=== PATIENT | male | born 1970 | race Caucasian/White ===

== ENCOUNTER 2019-09-10 00:58 | Inpatient (IN) ==
[2019-09-10] MEDS ORDERED: ZOFRAN IV ONE (00:59)
[2019-09-10] MEDS ORDERED: NS 1,000 ML IV ONE ×3 (00:59→02:42)
[2019-09-10] MEDS ORDERED: TORADOL IV ONE (01:09)
--- NOTE | 2019-09-10 01:12 | PROVIDER DOCUMENTATION ---
This chart was entered by Kari Garcia Scribe, acting as scribe for Antoine Carballo MD. HPI-General Adult - General Stated Complaint: SOB Time Seen by Provider: 09/10/19 00:59 Source: patient Allergies/Adverse Reactions: Patient Allergies Allergy/AdvReac Type Severity Reaction Status Date / Time No Known Allergies Allergy Verified 09/10/19 01:08 Home Medications: Home Medication List Medication Instructions Recorded Confirmed Last Taken Type Ergocalciferol (Vitamin D2) 50,000 cap PO DAILY 09/10/19 09/10/19 Unknown History [Vitamin D2] - History of Present Illness -Gen Adult Nature of Presenting Problems: 49yom presents to ED cc SOB, sharp lower right back pain for last 2 days, chest pain, diarrhea and fever. Pt was walking into ED when he almost passed out and network security analyst helped him into wheelchair. Pt denies dysuria. Pt is diaphoretic, low 02, core temp over 101 and hypotensive upon exam. Pt has hx of HTN. Location of Pain/Injury: reports: chest, back Quality of Pain: reports: sharp, tightness Severity: reports: moderate, severe Onset/Duration: reports: 2 days ago Timing: reports: still present, getting worse Context/Activities at Onset: reports: light activity Modifying Factors: improves with: nothing Associated Symptoms: reports: back/neck pain (back), chest pain, diarrhea, shortness of breath Similar Symptoms Previously?: No Recently seen or treated by another doctor?: No Review of Systems - Adult - REVIEW OF SYSTEMS - ADULT Constitutional: reports: see HPI. denies: chills, fever, fatique Eyes: reports: no symptoms reported Ears, Nose, Mouth & Throat: reports: no symptoms reported Cardiovascular: reports: see HPI, chest pain. denies: palpitations Respiratory: reports: see HPI, shortness of breath. denies: cough Gastrointestinal: reports: see HPI, diarrhea Genitourinary: reports: see HPI, flank pain (left). denies: dysuria Musculoskeletal: reports: see HPI, back pain (low back) Integumentary: reports: no symptoms reported Neurological: reports: no symptoms reported Psychiatric: reports: no symptoms reported Endocrine: reports: no symptoms reported Hematologic/Lymphatic: reports: no symptoms reported Allergic/Immunologic: reports: no symptoms reported All Other Systems: Reviewed and Negative Past History - Adult - PAST MEDICAL HISTORY-ADULT Review of Records: reports: Nursing Assessment Review, Medications Reviewed, Social history reviewed & non-contributory. Major Childhood Illnesses: reports: denies history Cardiovascular: reports: denies history Respiratory: reports: denies history Gastrointestinal: reports: denies history Obstetrical/Gynecological: reports: denies history Genitourinary: reports: denies history Musculoskeletal: reports: denies history Neurological: reports: denies history Endocrine/Immune: reports: denies history Other Conditions: reports: denies history - IMMUNIZATION STATUS Childhood Immunizations: See Nurse Assessment Flu Vaccine: See Nurse Assessment - FAMILY HISTORY Family History: reviewed, not pertinent Physical Exam-General - PHYSICAL EXAM-ADULT Initial Vital Signs Reviewed: Yes - CONSTITUTIONAL General Appearance: alert, mild distress. negative: anxious, combative - EYES Eyes: PERRL/EOMI, pink conjunctivae. negative: photophobia - HEAD, EARS, NOSE, MOUTH & THROAT HENMT: normocephalic/atraumatic, moist mucous membranes. negative: angioedema - NECK Neck: normal inspection - RESPIRATORY Respiratory: chest non-tender, lungs clear, normal breath sounds. negative: stridor, wheezing - CARDIOVASCULAR Cardiovascular: normal peripheral pulses, no edema, other (hypotensive). negative: bradycardia, tachycardia - GASTROINTESTINAL (ABDOMEN) Abdominal Exam: normal bowel sounds, non tender, soft. negative: guarding - MUSCULOSKELETAL Back Exam: no vertebral tenderness, CVA tenderness (right), other Extremity: normal inspection. negative: deformity - SKIN Integumentary: diaphoresis. negative: jaundice, rash - PSYCHIATRIC Psych/Mental Status: oriented x 3. negative: anxious, disheveled Progress - PLAN OF CARE/RESULTS Progress/Plan/Lab Results: Orders Category Date Time Status 0.9% Sodium Chloride Inj [Ns] 1,000 ml Med 09/10/19 00:59 Active IV 999 mls/hr Ondansetron [Zofran] Med 09/10/19 00:59 Discontinued 4 mg IV NOW ONE Result Diagrams: 09/10/19 01:14 09/10/19 01:14 - EKG 1 Time of EKG reading by physician:: 00:59 EKG Read and Signed by:: Antoine Carballo EKG Interpretation (*Must complete 3 of following elements*): Abnormal (left anterior fascicular block; possible lateral infarct, age undetermined) Rate: 107 Rhythm: Sinus Tachycardia QRS: LVH [place] Interval: normal - XRAY 1 XRAY Study: Chest XRAY Interpretation: bilateral infiltrates - CT/MRI 1 CT Study: Abdomen, Pelvis CT Results: multifocal pneumonia, no AAA - CONSULTS/PCP/HOSPITALIST Notification #1 *Consult/PCP/Hospitalist*: Dr. Bell, hospitalist at [facility] Time Discussed: 03:25 Reason/Comments: admit to ICU at [facility] Consult Disposition: Admit Departure - Departure Date of Disposition Decision: 09/10/19 Time of Disposition Decision: 03:55 DIAGNOSIS: Septic shock Bilateral pneumonia Qualifiers: Pneumonia type: due to unspecified organism Lung location: unspecified part of lung Qualified Code(s): J18.9 - Pneumonia, unspecified organism Urinary tract infection Qualifiers: Urinary tract infection type: site unspecified Hematuria presence: without hematuria Qualified Code(s): N39.0 - Urinary tract infection, site not specified Disposition: ADMITTED INPATIENT 09 Certified Medical Emergency: Emergent Condition: Critical Additional Instructions: ED Follow Up Instructions: You have been treated by a care provider in the Emergency Department. These instructions are being provided to you so you can have an understanding of how to care for yourself upon discharge. Upon discharge from the Emergency Department, you are responsible for making arrangements for follow-up care by a physician of your choice. Take all prescribed medications as directed. Return to the Emergency Department immediately for any new or worsening symptoms. You may call the Physician Referral phone number at [phone] to obtain a list of Physicians who are taking new patients. Referrals and Follow-Ups: None,PCP [NON-STAFF PROVIDER] - - Critical Care Note This patient required my direct & personal management of CC.: Yes Attestation - Physician/ ADAM Attestation Patient care was provided by Advanced Practice Provider:: No The physician spent face to face time with patient:: Yes Advanced Practice Provider documentation review:: Supervising physician onsite and consulted in the evaluation and care of this patient. The physician did have a face to face encounter with the patient. This chart was documented by the indicated scribe, (Kari Garcia Scribe) and accurately reflects the services I performed and decisions made by me, Antoine Carballo MD, as attested by the provider's signature.
--- NOTE | 2019-09-10 01:21 | EKG Report ---
Test Performed on : 09/10/2019 00:59:12 AM Test Reason : sob Blood Pressure : / mmHG Vent. Rate : 107 BPM Atrial Rate : 107 BPM P-R Int : 132 ms QRS Dur : 098 ms QT Int : 356 ms P-R-T Axes : 050 -50 038 degrees QTc Int : 475 ms Sinus tachycardia. Left anterior fascicular block Moderate voltage criteria for LVH, may be normal variant Possible Lateral infarct , age undetermined Abnormal ECG No previous ECGs available Unconfirmed Result
[2019-09-10] MEDS ORDERED: ZOSYN 3.375 GM in NS 50 ML IV ONE (01:33)
[2019-09-10] MEDS ORDERED: TYLENOL PR ONE (01:33)
[2019-09-10 01:40] LABS: BASO# 0.01 X1000 (0.0-0.2); BASO% 0.1 % (0.0-0.8); EOS# 0.05 X1000 (0.0-0.7); EOS% 0.3 % (0.0-10.0); HEMATOCRIT 48.6 % (42.0-52.0); IMM GRAN# 0.04 X1000 (0.0-0.04); IMM GRAN% 0.2 % (0.0-0.5); LYMPH% 2.8 % (20.5-51.1); MCH 29.1 PG (27-31); MCHC 32.9 g/dL (33-37); MCV 88.5 FL (81-99); MONO# 0.82 X1000 (0.11-0.59); MONO% 4.5 % (1.7-9.3); NEUT# 16.76 X1000 (1.4-6.5); NEUT% 92.1 % (42.2-75.2); PLT 218 X1000 (130-400); RBC 5.49 XMIL (4.7-6.1); RDW 15.3 % (11.5-14.5); WBC 18.18 X1000 (4.8-10.8)
[2019-09-10 01:42] LABS: AGAP 9; ALBUMIN 3.5 g/dL (3.5-5.0); ALKALINE PHOSPHATASE 78 U/L (32-122); BUN 9 mg/dL (8-22); CALCIUM 8.7 mg/dL (8.8-10.2); CHLORIDE 103 mmol/L (98-107); COSMO 271; CREATININE 0.7 mg/dL (0.7-1.2); ESTIMATED GFR > 60; GLUCOSE 105 mg/dL (70-104); GOT 11 U/L (10-34); GPT 8 U/L (10-44); POTASSIUM 3.8 mmol/L (3.5-5.1); SODIUM 136 mmol/L (136-145); TCO2 25 mmol/L (25-35); TOTAL PROTEIN 6.1 g/dL (6.3-8.3)
[2019-09-10] MEDS ORDERED: VANCOMYCIN 1 GM/NS 1 GM/250 ML IVPB IV ONE ×2 (01:43→05:00)
[2019-09-10] MEDS ORDERED: NORCO-5 PO ONE (01:50)
[2019-09-10 01:59] LABS: URINE SOURCE CATH
[2019-09-10 02:00] LABS: OCCULT BLOOD 1 POSITIVE (NEGATIVE)
[2019-09-10 02:02] LABS: BILIRUBIN URINE SMALL (NEGATIVE); BLOOD URINE NEGATIVE (NEGATIVE); COLOR YELLOW; GLUCOSE URINE 70 mg/dL (NEGATIVE); KETONE URINE TRACE mg/dL (NEGATIVE); LEUKOCYTES URINE NEGATIVE (NEGATIVE); NITRITE URINE NEGATIVE (NEGATIVE); PROTEIN URINE 200 mg/dL (NEGATIVE); SP GRAVITY URINE 1.029; TURBIDITY URINE HAZY (CLEAR); UROBILINOGEN URINE 3 mg/dL (NORMAL)
[2019-09-10 02:02] LABS: INR 1.11; PROTIME 14.9 Seconds (11.0-16.0)
[2019-09-10 02:30] LABS: URINE RBC <10 /HPF (<10); URINE WBC 20-40 /HPF (<10)
[2019-09-10 02:31] LABS: UR EPITHELIAL CELLS <10 /HPF (<10); URINE BACTERIA 3+ /HPF; URINE CASTS NONE SEEN; URINE CRYSTALS NONE SEEN; URINE SMALL ROUND CELLS NONE SEEN; URINE YEAST NONE SEEN
[2019-09-10] MEDS ORDERED: NORCO-5 ONE (02:41)
[2019-09-10] MEDS ORDERED: NS 500 ML IV ONE (02:42)
[2019-09-10] MEDS ORDERED: ZOSYN 3.375 GM in NS 50 ML IV SCH (04:00)
[2019-09-10] MEDS ORDERED: VANCOMYCIN IV PER PHARMACY MISC SCH (04:00)
[2019-09-10] MEDS: DOPAMINE 800 MG/D5W 800 MG/500 ML IV.SOLN IV SCH ×3 (05:21→06:56)
[2019-09-10] MEDS ORDERED: MORPHINE IV ONE ×2 (05:25→08:27)
[2019-09-10] MEDS ORDERED: DILAUDID IV ONE (05:38)
[2019-09-10] MEDS ORDERED: MOTRIN LIQUID PO ONE (06:04)
[2019-09-10 06:17] LABS: BE -3.8 mmoll (-3.0-3.0); BLOOD TYPE ARTERIAL; HCO3-(ACT) 21.8 mmoll (20.0-26.0); METHB 1.2 % (0.0-1.5); O2(CT) 18.6 mL/dL (15.0-23.0); O2HB 91.4 % (95.0-99.0); PCO2(98.6) 39 mmHg (35-45); PO2(98.6) 69 mmHg (60-100); SAMPLE BLOOD; SAO2 94.8 % (95.0-100.0); THB 14.5 g/dL (11.5-17.4); pH(98.6) 7.35 (7.35-7.45)
[2019-09-10 06:18] LABS: ALLEN TEST NO; MODALITY NRB
[2019-09-10] MEDS ORDERED: CARDIZEM IV ONE ×3 (06:25→07:38)
--- NOTE | 2019-09-10 07:05 | EKG Report ---
Test Performed on : 09/10/2019 06:19:41 AM Test Reason : tachycardia Blood Pressure : / mmHG Vent. Rate : 176 BPM Atrial Rate : 170 BPM P-R Int : 000 ms QRS Dur : 102 ms QT Int : 288 ms P-R-T Axes : 000 -42 068 degrees QTc Int : 492 ms Atrial fibrillation. with rapid ventricular response. Left axis deviation Inferior infarct , age undetermined Anterolateral infarct (cited on or before 10-SEP-2019) Abnormal ECG When compared with ECG of 10-SEP-2019 00:59, (Unconfirmed) Atrial fibrillation. has replaced Sinus rhythm. Vent. rate has increased BY 69 BPM Left anterior fascicular block is no longer present Nonspecific T wave abnormality now evident in Lateral leads Unconfirmed Result
[2019-09-10] MEDS: LEVOPHED 8 MG in D5 1/2 NS 250 ML IV SCH ×5 (07:38→08:13)
[2019-09-10] MEDS ORDERED: LEVOPHED 8 MG in D5 1/2 NS 250 ML IV SCH (07:45)
[2019-09-10] MEDS ORDERED: LOPRESSOR IV ONE (07:48)
[2019-09-10] MEDS ORDERED: SOLU-CORTEF IV ONE (07:48)
[2019-09-10] MEDS ORDERED: EPINEPHRINE ONE (08:19)
[2019-09-10] MEDS ORDERED: EPINEPHRINE SYRINGE IV ONE (08:21)
[2019-09-10] MEDS ORDERED: MORPHINE ONE (08:26)
--- NOTE | 2019-09-10 08:42 | Diag Imaging Result Doc PS360 ---
EXAM: CHEST-PORTABLE - 09/10/2019 HISTORY: chest pain TECHNIQUE: Portable chest COMPARISON: 09/15/2018 FINDINGS: Heart size is normal. Inspiration is somewhat shallow. There is ill-defined infiltrate or atelectasis at the left base. There is mild linear atelectasis at the right base. There is no pleural effusion or pneumothorax identified. IMPRESSION: Somewhat shallow inspiration. Ill-defined infiltrate or atelectasis at left base. Electronically signed by Stevenson Earl 09/10/2019 8:40 AM
[2019-09-10] MEDS ORDERED: NS ONE (09:08)
[2019-09-10] MEDS ORDERED: EPINEPHRINE SYRINGE ONE (09:08)
--- NOTE | 2019-09-10 09:25 | Diag Imaging Result Doc PS360 ---
EXAM: CT RENAL STONE SEARCH - 09/10/2019 HISTORY: flank pain TECHNIQUE: CT renal stone search without contrast COMPARISON: None. FINDINGS: There are patchy infiltrates at the bilateral lung bases, as well as some dependent atelectasis. There is an apparent small hiatal hernia. There are postsurgical changes of gastric bypass. There is no hydronephrosis or perinephric edema identified. There is no renal stone identified. There is a Perez catheter in the urinary bladder. There is no evidence of bowel obstruction. The appendix is questionably visualized and shows no obvious inflammation. There is no free air. There are no calcified gallstones or pericholecystic inflammation identified. There are bilateral L4 pars interarticularis defects and lumbar spine degenerative changes noted. IMPRESSION: No evidence of renal stone or hydronephrosis. Patchy infiltrates at bilateral lung bases which are suspicious for pneumonia. Bilateral L4 pars interarticularis defects and lumbar spine degenerative changes noted. The on-call radiologist provided preliminary results at 2:53 AM on 09/10/2019. This exam was performed using automated exposure control, adjustment of mA or kV according to patient size, and/or use of iterative reconstruction technique. Electronically signed by Stevenson Earl 09/10/2019 9:22 AM
[2019-09-10] MEDS ORDERED: ZOFRAN IV PRN (09:32)
--- NOTE | 2019-09-10 09:58 | EKG Report ---
Test Performed on : 09/10/2019 08:25:15 AM Test Reason : pain Blood Pressure : / mmHG Vent. Rate : 099 BPM Atrial Rate : 094 BPM P-R Int : 000 ms QRS Dur : 102 ms QT Int : 374 ms P-R-T Axes : 000 -24 -04 degrees QTc Int : 479 ms Atrial fibrillation. Cannot rule out Anterior infarct (cited on or before 10-SEP-2019) Abnormal ECG When compared with ECG of 10-SEP-2019 06:19, (Unconfirmed) Vent. rate has decreased BY 77 BPM Questionable change in initial forces of Lateral leads ST elevation has replaced ST depression in Lateral leads Inverted T waves have replaced nonspecific T wave abnormality in Inferior leads Nonspecific T wave abnormality no longer evident in Lateral leads Confirmed by Joe BRAGG, P.J.M ([id number]) on 09/11/2019 1:11:05 PM
[2019-09-10] MEDS: MAXIPIME 2 GM in NS 100 ML IV SCH ×2 (10:17→20:39)
[2019-09-10] MEDS: NS 1,000 ML IV SCH ×2 (10:17→20:38)
[2019-09-10] MEDS: NEO-SYNEPHRINE 50 MG in NS 250 ML IV SCH ×3 (10:27→19:52)
[2019-09-10] MEDS: CARDIZEM 100 MG/NS 100 MG/100 ML IVPB IV SCH ×2 (10:28→17:34)
[2019-09-10 11:06] LABS: HEMOGLOBIN A1C 5.8 % (4.8-6.0)
[2019-09-10] MEDS: LOVENOX SUBQ SCH (11:17)
[2019-09-10] MEDS: XOPENEX NEB INH SCH ×4 (11:39→23:34)
[2019-09-10] MEDS: TYLENOL PO PRN (14:06)
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
[2019-09-10] MEDS: NORCO-5 PO PRN ×2 (15:23→20:40)
--- NOTE | 2019-09-10 17:10 | ECHO REPORT ---
ORDER DATE: 09/10/2019 INTERPRETING PHYSICIAN: Dr. Bal Weems. REQUESTING PHYSICIAN: Lina Head MD. CLINICAL INDICATIONS: A 49-year-old male with atrial fibrillation, paroxysmal; pneumonia; question of CHF. M-MODE MEASUREMENTS: Left ventricle end diastole: 4.8 cm. Left ventricle end systole: 3.6 cm. Posterior wall: 1.1 cm. Interventricular septum: 1.2 cm. Left atrium: 3.8 cm. Aortic root: 3.1 cm. SUMMARY OF 2-DIMENSIONAL IMAGIN. The left ventricular chamber is not dilated. Left ventricular function is moderately impaired. Appears to be in the range of 40-45%. The patient is in atrial fibrillation with rapid response, making the study very difficult to interpret. 2. The left atrium appears to be mildly enlarged. 3. The right atrium and right ventricle also appear to be mild to moderately enlarged. 4. Mitral valve shows mild degree of regurgitation. 5. Pulse wave Doppler of mitral inflow shows a single filling wave. The patient is in atrial fibrillation. 6. The tricuspid valve shows mild to moderate degree of regurgitation. 7. Pulmonary pressure is estimated at 39 mmHg. 8. The aortic valve has 3 cusps; they open normally. Color flow mapping unremarkable. 9. The pulmonic valve appears to be grossly within normal range. 10.There is no pericardial effusion, mass or thrombus. Clinical correlation is recommended. cc: MD Lina Hinson MD
[2019-09-10] MEDS ORDERED: SODIUM CHLORIDE 0.9% INJ SCH (19:00)
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
[2019-09-10] MEDS: MUCOMYST 20% INH SCH (19:38)
[2019-09-10] MEDS ORDERED: VANCOMYCIN 2,000 MG in NS 500 ML IV SCH (21:00)
[2019-09-11] MEDS: NEO-SYNEPHRINE 50 MG in NS 250 ML IV SCH ×5 (01:47→22:31)
[2019-09-11] MEDS: XOPENEX NEB INH SCH ×5 (03:19→19:53)
[2019-09-11] MEDS: CARDIZEM 100 MG/NS 100 MG/100 ML IVPB IV SCH ×2 (03:34→16:41)
[2019-09-11 05:12] LABS: ALLEN TEST YES; BE -8.7 mmoll (-3.0-3.0); BLOOD TYPE ARTERIAL; HCO3-(ACT) 18.1 mmoll (20.0-26.0); METHB 1.1 % (0.0-1.5); O2(CT) 19.8 mL/dL (15.0-23.0); O2HB 95.6 % (95.0-99.0); PCO2(98.6) 30 mmHg (35-45); PO2(98.6) 89 mmHg (60-100); SAMPLE BLOOD; THB 14.7 g/dL (11.5-17.4); pH(98.6) 7.33 (7.35-7.45)
[2019-09-11 05:13] LABS: MODALITY HIGH FLOW NASAL CAN
--- NOTE | 2019-09-11 06:00 | Diag Imaging Result Doc PS360 ---
EXAM: CHEST-PORTABLE HISTORY: pneumonia TECHNIQUE: Single view COMPARISON: 09/10/2019 FINDINGS: Poor inspiratory effort. Development of right basilar infiltrates with atelectasis and small effusion. Left basilar infiltrates are more pronounced. Heart is borderline mildly prominent. There is central vascular distention. IMPRESSION: Interval worsening Electronically signed by Weston Fabian 09/11/2019 5:58 AM
[2019-09-11] MEDS: PROTONIX IV SCH (06:31)
[2019-09-11] MEDS: NS 1,000 ML IV SCH (06:31)
[2019-09-11 06:43] LABS: BASO# 0.04 X1000 (0.0-0.2); BASO% 0.1 % (0.0-0.8); EOS# 0.37 X1000 (0.0-0.7); HEMATOCRIT 42.2 % (42.0-52.0); HEMOGLOBIN 13.8 g/dL (14.0-18.0); IMM GRAN# 0.28 X1000 (0.0-0.04); IMM GRAN% 0.8 % (0.0-0.5); LYMPH# 0.39 X1000 (1.2-3.4); LYMPH% 1.1 % (20.5-51.1); MCH 29.4 PG (27-31); MCHC 32.7 g/dL (33-37); MONO# 0.86 X1000 (0.11-0.59); MONO% 2.4 % (1.7-9.3); MPV 10.9 FL (7.4-10.4); NEUT# 33.45 X1000 (1.4-6.5); NEUT% 94.6 % (42.2-75.2); PLT 227 X1000 (130-400); RBC 4.69 XMIL (4.7-6.1); RDW 15.8 % (11.5-14.5); WBC 35.39 X1000 (4.8-10.8)
[2019-09-11 06:56] LABS: CALCIUM 7.7 mg/dL (8.8-10.2); CREATININE 2.9 mg/dL (0.7-1.2); POTASSIUM 3.8 mmol/L (3.5-5.1)
[2019-09-11 07:15] LABS: BANDS 2 % (0-1); EOS 12 % (1-10); SEGS 86 % (42-75)
[2019-09-11] MEDS: ZYVOX 600 MG/D5W 600 MG/300 ML IVPB IV SCH ×2 (07:29→20:27)
[2019-09-11] MEDS: NORCO-5 PO PRN ×2 (07:41→12:48)
[2019-09-11] MEDS: MUCOMYST 20% INH SCH ×2 (08:08→19:53)
[2019-09-11] MEDS: DILAUDID IV PRN ×3 (09:09→16:40)
[2019-09-11] MEDS: MAXIPIME 2 GM in NS 100 ML IV SCH (09:10)
[2019-09-11] MEDS: LOVENOX SUBQ SCH (09:25)
[2019-09-11 10:40] LABS: URINE SOURCE CLEAN CATCH
[2019-09-11 10:47] LABS: BILIRUBIN URINE NEGATIVE (NEGATIVE); BLOOD URINE SMALL (NEGATIVE); COLOR YELLOW; GLUCOSE URINE NEGATIVE (NEGATIVE); KETONE URINE NEGATIVE (NEGATIVE); LEUKOCYTES URINE SMALL (NEGATIVE); NITRITE URINE NEGATIVE (NEGATIVE); PROTEIN URINE 100 mg/dL (NEGATIVE); SP GRAVITY URINE 1.021; TURBIDITY URINE HAZY (CLEAR); UROBILINOGEN URINE NORMAL (NORMAL)
[2019-09-11 10:51] LABS: UR EPITHELIAL CELLS <10 /HPF (<10); URINE BACTERIA NEGATIVE /HPF; URINE RBC <10 /HPF (<10)
[2019-09-11 10:58] LABS: URINE CASTS NONE SEEN; URINE CRYSTALS NONE SEEN; URINE SMALL ROUND CELLS NONE SEEN; URINE YEAST PRESENT
[2019-09-11 11:02] LABS: UR CREAT RANDOM 125.2 mg/dL (14-26)
--- NOTE | 2019-09-11 11:16 | CARDIOLOGY PROGRESS NOTE ---
DATE: 09/11/2019 CHIEF COMPLAINT: Shortness of breath, pleuritic pain. SUBJECTIVE: Mr. Chester is still very uncomfortable. They had to give him Dilaudid for pleuritic pain. His chest x-ray today shows interval worsening. He is awake. He is still quite dyspneic on high flow oxygen. OBJECTIVE: Temperature 98.3, pulse 101, blood pressure 107/75, respirations 24. Awake, alert, with labored breathing. HEENT unremarkable. Chest: Bilateral breath sounds are diminished with some rales, especially in the right lung. Heart sounds are irregularly irregular at this time. No gallop or murmur. Abdomen is nontender. Extremities showed no obvious edema. Neurologic: Follows commands. Moves all 4 extremities. DIAGNOSTIC DATA: Blood work shows white cell count 35,390, hemoglobin 13.8. His ProBNP is 6457. His blood gases this morning on 70% FiO2 show pO2 is 89, pH is 7.33. His BUN is 44, creatinine 2.9. His C-reactive protein was very high at 336.14 mg per mL. His echocardiogram from yesterday showed ejection fraction of 40% to 45% with atrial fibrillation. IMPRESSION: 1. The patient developed paroxysmal atrial fibrillation in the midst of severe bilateral pneumonia with respiratory failure, hypoxemic. 2. Acute renal dysfunction secondary to sepsis and dehydration. 3. History of gastric bypass. Diagnosis of morbid obesity in the past. 4. Chronic anemia in the past. 5. History of hypertension. RECOMMENDATIONS: At this time, we will continue with supportive measures, IV Cardizem, IV Pravin- Synephrine. He needs to be watched closely because he may evolve into ARDS. We will follow. cc: Bal Weems MD
--- NOTE | 2019-09-11 13:53 | Diag Imaging Result Doc PS360 ---
EXAM: LUNG SCAN / VQ HISTORY: p.e. TECHNIQUE: Nuclear medicine ventilation/perfusion lung scan COMPARISON: Recent chest x-ray FINDINGS: Not all images obtained due to the patient's inability to complete the exam. 40.2 mCi DTPA used for the anterior and posterior ventilation images. 5.6 mCi MAA given intravenously for the anterior and posterior perfusion images. No wedge shaped perfusion defects. No mismatches. IMPRESSION: No pulmonary emboli identified Electronically signed by Weston Fabian 09/11/2019 1:50 PM
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
[2019-09-11 15:41] LABS: ALB/GLOB RATIO 0.8; ALBUMIN 2.6 g/dL (3.5-5.0); CALCIUM 8.2 mg/dL (8.8-10.2); CREATININE 2.4 mg/dL (0.7-1.2); POTASSIUM 3.7 mmol/L (3.5-5.1); TOTAL BILIRUBIN 1.36 mg/dL (0.20-1.00); TOTAL PROTEIN 5.9 g/dL (6.3-8.3)
--- NOTE | 2019-09-11 15:43 | PROGRESS NOTE ---
DATE: 09/11/2019 SUBJECTIVE: The patient states that he has been having a lot of right flank pain as well as pleuritic chest pain. He states that he does not have an appetite. He remains on Cardizem and Pravin-Synephrine drips. He is also on high flow oxygen. OBJECTIVE: Vital Signs: T-max 98.7 degrees, blood pressure 115/79, heart rate 92, respirations 17, O2 saturation 91% on high-flow oxygen. Intake 2.4 L, output 720. General: This is a middle- aged male lying in bed in no acute distress. Heart: S1, S2 normal. Tachycardic. Lungs: Rhonchi in both lung andrew. No crackles. Abdomen: Positive bowel sounds. Soft, nontender, nondistended. Extremities: 1+ edema in the lower extremities. Neurologic: The patient is alert and oriented x4. LABS: White blood cell count 35, hemoglobin 13, hematocrit 42, platelets 227,000. Sodium 138, potassium 3.8, chloride 101, CO2 15, BUN 44, creatinine 2.9, glucose 92, calcium 7.7. ProBNP 6457, cortisol 40. ABG: PH is 7.33, pCO2 30, PO2 89, bicarb 18. ASSESSMENT AND PLAN: 1. Acute hypoxemic respiratory failure. Likely secondary to severe bilateral lobe pneumonia. Continue to treat the underlying infection. 2. Septic shock. The patient remains on Pravin-Synephrine. So far the blood cultures are negative as well as the sputum culture. We will continue with broad-spectrum antibiotics. 3. Severe bilateral lobe pneumonia. Continue with broad-spectrum antibiotics, bronchodilator therapy, and high-flow oxygen. Pulmonary and ID have been consulted. 4. Acute kidney injury. The patient's FENA is less than 1 however, he has peripheral edema that has developed. The patient's urine output remains adequate. This is likely a combination of septic shock and hypotension leading to ATN. Nephrology has been consulted for further recommendations. 5. Metabolic acidosis. Monitor. 6. Leukocytosis. Worse. Continue with broad-spectrum antibiotics. 7. Atrial fibrillation. The patient remains on a Cardizem drip. Further management as per Cardiology. 8. Gastrointestinal prophylaxis. Continue on IV Protonix. 9. Deep vein thrombosis prophylaxis. Continue on heparin. cc: Lina Head MD [facility]
[2019-09-12] MEDS: XOPENEX NEB INH SCH ×7 (00:05→23:30)
[2019-09-12 05:05] LABS: ALLEN TEST YES; BE -5.4 mmoll (-3.0-3.0); BLOOD TYPE ARTERIAL; HCO3-(ACT) 20.7 mmoll (20.0-26.0); METHB 1.3 % (0.0-1.5); O2HB 95.7 % (95.0-99.0); PCO2(98.6) 34 mmHg (35-45); PO2(98.6) 91 mmHg (60-100); SAMPLE BLOOD; SAO2 98.2 % (95.0-100.0); THB 14.8 g/dL (11.5-17.4); pH(98.6) 7.36 (7.35-7.45)
[2019-09-12 05:06] LABS: MODALITY HIGH FLOW NASAL CAN
[2019-09-12] MEDS: NEO-SYNEPHRINE 50 MG in NS 250 ML IV SCH (05:06)
[2019-09-12] MEDS: DILAUDID IV PRN ×2 (05:25→17:12)
[2019-09-12] MEDS: PROTONIX IV SCH (06:19)
[2019-09-12 06:29] LABS: BASO# 0.03 X1000 (0.0-0.2); BASO% 0.1 % (0.0-0.8); EOS# 0.47 X1000 (0.0-0.7); EOS% 1.9 % (0.0-10.0); HEMATOCRIT 42.1 % (42.0-52.0); HEMOGLOBIN 14.1 g/dL (14.0-18.0); IMM GRAN# 0.21 X1000 (0.0-0.04); IMM GRAN% 0.8 % (0.0-0.5); LYMPH# 0.55 X1000 (1.2-3.4); LYMPH% 2.2 % (20.5-51.1); MCH 29.3 PG (27-31); MCHC 33.5 g/dL (33-37); MCV 87.5 FL (81-99); MONO# 0.82 X1000 (0.11-0.59); MONO% 3.3 % (1.7-9.3); MPV 11.4 FL (7.4-10.4); NEUT# 23.01 X1000 (1.4-6.5); NEUT% 91.7 % (42.2-75.2); PLT 194 X1000 (130-400); RBC 4.81 XMIL (4.7-6.1); RDW 15.9 % (11.5-14.5); WBC 25.09 X1000 (4.8-10.8)
[2019-09-12 06:58] LABS: CALCIUM 8.5 mg/dL (8.8-10.2); CREATININE 1.7 mg/dL (0.7-1.2); POTASSIUM 3.6 mmol/L (3.5-5.1)
--- NOTE | 2019-09-12 07:34 | CONSULTATION ---
DATE OF CONSULTATION: 09/11/2019 CHIEF COMPLAINT: Cough and shortness of breath. HISTORY OF PRESENT ILLNESS: This is a 49-year-old male with the complaint of cough, fever, chills, and with shortness of breath for a couple of days. Denies chest pain. Recent chest x-ray reveals left basilar infiltrates with central venous distention. PAST MEDICAL HISTORY: 1. Hypertension. 2. Iron deficiency anemia. PAST SURGICAL HISTORY: Left knee and right clavicle repair, gastric bypass. FAMILY HISTORY: Father with diabetes and hypertension. ALLERGIES: No known drug allergies. SOCIAL HISTORY: He is single and lives alone. Denies tobacco, alcohol or illicit drug use. REVIEW OF SYSTEMS: A 10-point review of systems was obtained, and the pertinent is listed in the HPI, otherwise noncontributory. DIAGNOSTIC DATA: White blood cells 18, hemoglobin 16, hematocrit 48, platelets 218,000. INR is 1.1. ABGs shows pH 7.35, pCO2 of 39, pO2 of 69, bicarbonate 21. Sodium is 136, potassium 3.8, chloride 103, CO2 is 25, BUN is 9, creatinine 0.7, glucose 105. Hemoglobin A1c is 5.8. AST is 11, ALT is 8. Troponin 0.01. Albumin 3.5. TSH is 0.86. UA with bacteria 3+. Diagnostic data listed pertinent in HPI. PHYSICAL EXAMINATION: Vital signs: Blood pressure is 104/61, temperature 98.6, heart rate 91, respirations 22, O2 saturation 91% on nonrebreather mask. General: This is a 49-year-old male, ill appearing, obese male, lying in bed in no acute distress at the present time. HEENT: Head is atraumatic and normocephalic. PERRLA noted. Extraocular movements were intact. Moist oral mucosa. Trachea midline. Neck is supple. Heart: S1 and S2 appreciated. Irregularly irregular rhythm. Lungs with coarse breath sounds and rhonchi bilaterally. Abdomen: Positive bowel sounds in all 4 quadrants. Soft, nontender and nondistended. Extremities: Trace edema. No clubbing or cyanosis. Peripheral pulses palpable. Neurologic: Alert and oriented x3. ASSESSMENT AND PLAN: 1. Bilateral pneumonia. Continue antibiotics, bronchodilators and supplemental O2. 2. Hypoxemic respiratory failure. Continue supplemental O2. We will follow with ABGs. 3. Paroxysmal atrial fibrillation. He is on Cardizem drip. Echocardiogram obtained. 4. Continue GI prophylaxis with IV Protonix. 5. Continue DVT prophylaxis with Lovenox subcutaneously. Thank you for the courtesy of this consult. Dictated by ARINA Moralez for Mariam Sherman MD cc: ARINA Moralez MD
--- NOTE | 2019-09-12 07:35 | EKG Report ---
Test Performed on : 09/10/2019 09:57:14 AM Test Reason : afib with rvr Blood Pressure : / mmHG Vent. Rate : 123 BPM Atrial Rate : 131 BPM P-R Int : 000 ms QRS Dur : 102 ms QT Int : 350 ms P-R-T Axes : 000 -30 -08 degrees QTc Int : 501 ms Atrial fibrillation. with rapid ventricular response. Left axis deviation ST elevation, consider lateral injury or acute infarct ACUTE SD / STEMI Abnormal ECG When compared with ECG of 10-SEP-2019 08:25, (Unconfirmed) No significant change was found Confirmed by Renata BRAGG, Stephon ([id number]) on 09/13/2019 8:49:33 AM
--- NOTE | 2019-09-12 07:48 | Diag Imaging Result Doc PS360 ---
EXAM: CHEST-PORTABLE INDICATION: dyspnea TECHNIQUE: One view COMPARISON: 09/11/2019 FINDINGS: Lung volumes remain low. Infiltrates at the lower lung zones bilaterally are approximately stable. There is a stable right pleural effusion. No new consolidation is identified. Cardiac silhouette is stable. IMPRESSION: Stable chest. Electronically signed by Tamir Harrison 09/12/2019 7:45 AM
[2019-09-12] MEDS: MUCOMYST 20% INH SCH ×2 (08:12→19:45)
[2019-09-12] MEDS: ZYVOX 600 MG/D5W 600 MG/300 ML IVPB IV SCH ×2 (08:33→20:29)
[2019-09-12] MEDS: MIRALAX PO SCH ×2 (08:33→20:29)
[2019-09-12] MEDS: HEPARIN SUBQ SCH ×2 (08:33→20:28)
--- NOTE | 2019-09-12 08:58 | CARDIOLOGY PROGRESS NOTE ---
DATE: 09/12/2019 CHIEF COMPLAINT: Shortness of breath, irregular heartbeat. SUBJECTIVE: Mr. Chester is still feeling quite short of breath. He is still on Cardizem drip for his atrial fibrillation. He does not have any significant pain. He is still having labored breathing. OBJECTIVE: Vital signs: Temperature is 98.7, pulse is 100 per minute, blood pressure 111/76, respirations 24. Awake, acute ill. HEENT is unremarkable. Chest: Diminished breath sounds bilaterally. Heart sounds are irregularly irregular without gallop or murmur. Abdomen is nontender. Extremities showed no edema. Neurologic: Follows commands. Moves all 4 extremities. DIAGNOSTIC DATA: White count has dropped to 25,000, hemoglobin 14.1. Blood gases on FiO2 of 0.85 showed pO2 is 91, pH is 7.36, pCO2 is 34. Sodium 137, potassium 3.6, BUN is 38, creatinine 1.7. ProBNP is 6877 picograms per mL. IMPRESSION: 1. The patient is with bilateral pneumonia and acute respiratory failure, hypoxemic. The patient is practically in a pre-ARDS situation. 2. Atrial fibrillation, paroxysmal. 3. Chronic anemia in the past and history of hypertension. 4. Systolic LV dysfunction, probably related to the acute metabolic stress and the atrial fibrillation. RECOMMENDATIONS: At this time, we will continue with supportive measures. Prognosis is really guarded. Pulmonary is on the case, and Infectious Disease is on the case. We will see how things go. cc: Bal Weems MD
[2019-09-12] MEDS ORDERED: CULTURELLE PO SCH (09:00)
[2019-09-12] MEDS: MAXIPIME 2 GM in NS 100 ML IV SCH (10:00)
[2019-09-12] MEDS: NS NEB INH SCH (11:44)
[2019-09-12] MEDS: CARDIZEM 100 MG/NS 100 MG/100 ML IVPB IV SCH (15:26)
--- NOTE | 2019-09-12 16:00 | PROGRESS NOTE ---
DATE: 09/12/2019 SUBJECTIVE: The patient is sitting up in bed. He is currently on high-flow oxygen. He is also on Pravin-Synephrine and Cardizem drip. He reports that he feels a little bit better today. OBJECTIVE: Vital Signs: Temperature 98.5 degrees, blood pressure 94/58, heart rate 113, respirations 22, O2 saturation 97% on high-flow oxygen, intake 1.4 L, output 550. General: This is a elderly male sitting up in bed in no acute distress. Heart: S1, S2 normal. Irregularly irregular rhythm. Lungs: Diminished air entry bilaterally. No wheezing, no rales. Abdomen: Positive bowel sounds. Soft, nontender, nondistended. Extremities: Trace pedal edema, left leg is bigger than the right leg. Neuro: The patient is alert and oriented x4. LABS: White blood cell count 25, hemoglobin 14, hematocrit 42, platelets 194,000. Sodium 137, potassium 3.6, chloride 104, CO2 16, BUN 38, creatinine 1.7, glucose 100. Chest x-ray, infiltrates in the lower lung field no change. ASSESSMENT AND PLAN: 1. Acute hypoxemic respiratory failure. Likely secondary to severe bilateral lobe pneumonia. Continue with IV antibiotics, supplemental oxygen and bronchodilator therapy. 2. Septic shock. The cultures remain negative. We will continue with IV antibiotics. Will attempt to wean off the Pravin-Synephrine as tolerated. 3. Severe bilateral lobe pneumonia. Continue with broad-spectrum antibiotics, bronchodilator therapy and supplemental oxygen. Dr. Carroll is following. 4. Acute kidney injury secondary to acute tubular necrosis. Slightly improved today. Continue to monitor closely. Nephrology is following. We will avoid nephrotoxic agents. 5. Atrial fibrillation. The patient is currently on a Cardizem drip and Pravin- Synephrine. Management as per the medical claims examiner. 6. Leukocytosis. Improved. Continue with antibiotic therapy. 7. Metabolic acidosis. Unchanged. 8. Constipation. Continue on miralax. 9. Gastrointestinal prophylaxis. Continue on IV Protonix. 10. Deep vein thrombosis prophylaxis. Continue on heparin. cc: [facility] Head MD [facility]
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
--- NOTE | 2019-09-12 18:39 | INFECTIOUS DISEASE PROGRESS NO ---
DATE: 09/12/2019 PRESENT ILLNESS: The patient has a bilateral pneumonia. MEDICATIONS: This is day 1 of treatment with Zyvox and cefepime. PHYSICAL EXAMINATION: Vital Signs: Temperature is 98.5 degrees, pulse 113, respirations 20, blood pressure 81/63. General: This is a fairly healthy-appearing but obese, middle-aged male. He is in no acute distress. Head, eyes, ears, nose, and throat: He can hear my spoken words and see near objects. He did not have any white patches in his mouth. Neck: No stiffness. Lungs: There were bilateral rales. Cardiovascular: Heart rate is regular. Abdomen: Soft and nontender. Neurologic: The patient is alert. He can move his extremities. There is no tremor. LAB AND X-RAY: Chest x-ray shows bibasilar infiltrates which are about the same. Sputum cultures grew normal roldan. Urine culture and blood cultures are negative. Creatinine is 1.7. GFR is 43. IgG is 673 and IgA is 171. Swab for influenza was negative. The patient's CBC showed a white blood cell count of 25,090, hemoglobin is 14.1, and platelet count is 194,000. ASSESSMENT AND PLAN: Patient has bilateral pneumonia. My plan is to continue with cefepime and Zyvox. The patient's IgG level is only minimally low at 673 with 700 being the lower limit of normal. I do not think this is clinically significant and does not require immunoglobulin therapy. COMORBIDITIES: Patient really does not have any comorbidity that I can detect for his pneumonia. He does have renal calculi and in the past he has had urinary tract infections secondary to him having renal calculi. cc: Mekhi Carroll MD
[2019-09-12] MEDS: COLACE PO SCH (20:29)
[2019-09-13] MEDS: CARDIZEM 100 MG/NS 100 MG/100 ML IVPB IV SCH ×2 (00:02→06:03)
[2019-09-13] MEDS: XOPENEX NEB INH SCH ×6 (03:13→23:17)
[2019-09-13 05:01] LABS: ALLEN TEST YES; BLOOD TYPE ARTERIAL; HCO3-(ACT) 24.1 mmoll (20.0-26.0); METHB 0.7 % (0.0-1.5); O2(CT) 17.2 mL/dL (15.0-23.0); PCO2(98.6) 30 mmHg (35-45); PO2(98.6) 80 mmHg (60-100); SAMPLE BLOOD; SAO2 98.3 % (95.0-100.0); THB 12.7 g/dL (11.5-17.4); pH(98.6) 7.47 (7.35-7.45)
[2019-09-13 05:03] LABS: MODALITY HIGH FLOW NASAL CAN
[2019-09-13] MEDS: PROTONIX IV SCH (06:02)
[2019-09-13 07:23] LABS: CALCIUM 7.8 mg/dL (8.8-10.2); CREATININE 1.3 mg/dL (0.7-1.2); POTASSIUM 3.1 mmol/L (3.5-5.1)
--- NOTE | 2019-09-13 07:44 | CARDIOLOGY PROGRESS NOTE ---
DATE: 09/13/2019 CHIEF COMPLAINT: Patient with shortness of breath, irregular heartbeat. SUBJECTIVE: Patient had an uneventful night. Still short of breath. OBJECTIVE: VITAL SIGNS: Patient's blood pressure is 115/77, temperature is 99 degrees, pulse 100, respirations 26. GENERAL: Patient is awake, alert, oriented, no distress. HEENT: Unremarkable. CHEST: Diminished breath sounds with egophony, tubular sounds at the right base and diminished in the left base. HEART: Sounds distant irregularly irregularly. ABDOMEN: Slightly distended, nontender. EXTREMITIES: Showed no edema. NEUROLOGICAL: Follow commands, moves 4 extremities. BLOOD WORK: White blood cell count is not reported yet. Laboratory is pending this morning. IMPRESSION: 1. Patient who presented with bilateral pneumonia. Blood cultures thus far have been reported as negative. This is acute pneumonitis, probably bacterial. 2. Atrial fibrillation, paroxysmal. 3. Systolic LV dysfunction, CHF, probably related to metabolic distress. RECOMMENDATIONS: At this time, continue supportive therapy as we are doing. Encourage nutrition. We will follow him. cc: Bal Weems MD
[2019-09-13] MEDS ORDERED: LASIX IV ONE (07:46)
--- NOTE | 2019-09-13 08:02 | Diag Imaging Result Doc PS360 ---
CHEST-PORTABLE - 09/13/2019 INDICATION: dyspnea COMPARISON: 09/12/2019 FINDINGS: Stable rounded, probably cavitary infiltrate in the left lung base. Stable extensive opacification in the right midlung and lung base. Heart size remains top normal. No new infiltrates. IMPRESSION: No change from prior. Electronically signed by Mike Oleary 09/13/2019 8:00 AM
[2019-09-13] MEDS: MUCOMYST 20% INH SCH ×2 (08:22→19:47)
[2019-09-13] MEDS: KLOR-CON PO SCH ×2 (08:44→10:45)
[2019-09-13] MEDS: COLACE PO SCH ×2 (08:44→20:58)
[2019-09-13] MEDS: CARDIZEM PO SCH ×3 (08:44→20:58)
[2019-09-13] MEDS: MIRALAX PO SCH ×2 (08:45→20:58)
[2019-09-13] MEDS: DULCOLAX PR SCH ×2 (08:45→20:58)
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
[2019-09-13] MEDS: ZYVOX 600 MG/D5W 600 MG/300 ML IVPB IV SCH ×2 (08:46→20:58)
[2019-09-13] MEDS: MAXIPIME 2 GM in NS 100 ML IV SCH ×2 (08:46→20:58)
[2019-09-13] MEDS: LOVENOX SUBQ SCH ×2 (09:02→21:45)
[2019-09-13] MEDS ORDERED: CITRATE OF MAGNESIA PO ONE (10:45)
[2019-09-13] MEDS: DILAUDID IV PRN (16:04)
[2019-09-13] MEDS: NORCO-5 PO PRN (16:04)
--- NOTE | 2019-09-13 17:27 | INFECTIOUS DISEASE PROGRESS NO ---
DATE: 09/13/2019 PRESENT ILLNESS: The patient has a bilateral pneumonia including a cavitary lesion in the left lower lobe and opacification in the right midlung and right lower lobe. The patient also has renal insufficiency and he is in atrial fibrillation. The patient has severe constipation also. MEDICATIONS: This is day 2 of treatment with Zyvox and cefepime. PHYSICAL EXAMINATION: Vital Signs: Temperature is 99 degrees, pulse 101, respirations 28, blood pressure 110/57. General: This is a somewhat ill-appearing, middle-aged male. He is in no acute distress. Head/eyes/ears/nose/throat: He can hear my spoken words and see near objects. He does not have any white patches on his tongue. Neck: No pain with movement. Lungs: Have bilateral rales. Cardiovascular: Heart rate today is irregular. Abdomen: Soft and nontender. Neurologic: Patient is alert. He does not have any tremor. LAB AND X-RAY: Chest x-ray shows left lower lobe cavitary infiltrate and right-sided opacification in the middle lobe and lower lobe. There is no CBC for today. The blood gases showed a pH of 7.47, a PO2 of 80, and a pCO2 of 30. The patient's creatinine is 1.3 with a GFR of 58. The blood gases show a pH of 7.47, a PO2 of 80, and a pCO2 of 30. ASSESSMENT AND PLAN: The patient has bilateral pneumonia. My plan is to continue cefepime and Zyvox. I have also ordered magnesium citrate for the patient's severe constipation. As I mentioned yesterday, the patient's IgG level is slightly low at 673, but I do not think this is clinically important and does not require an infusion of IVIG. COMORBIDITIES: I really have not come up with any comorbidity in this patient except he seems to have some renal insufficiency. He also has renal calculi. cc: Mekhi Carroll MD
--- NOTE | 2019-09-13 18:52 | PROVIDER PROGRESS NOTE ---
Progress Note Subjective: Pt voices feeling better but remains short of breath. Denies any chest pain, n/v, or decreased appetite. Objective: temp 98.4, pulse 105, respirations 30, blood pressure 103/68, o2 sat 93% on 40% high flow nasal cannula. General: elderly white male lying in bed in no acute distress. HEENT: Atraumatic, normocephalic. Pupils equal and reactive. Trachea midline. Skin: warm and dry. neck: supple, no JVD observed. Cardiovascular: irregular and tachycardia, no murmur or gallop. Respiratory: crackles throughout with diminished right base posteriorly. Abdomen: soft, tender, nondistended. Hypoactive bowel sounds : none inspected, Perez in place with gustavo urine. Extremities: 2-3+ pitting Edema with blanching erythema to bilateral feet. Neurological: alert and oriented to person, place, and time. Labs: sodium 138, potassium 3.1, chloride 103, carbon dioxide 20, BUN 33, creatinine 1.3. Intake 3505, output 2225. Impression: Acute kidney injury related to acute tubular necrosis likely from hypotension and septic shock. Creatinine trending down. We will sign off today. Hypokalemia. Replaced by primary. Metabolic acidosis. Improved. Blood pressure. Improved, off of Pravin-Synephrine. Anemia. Stable. Fluid volume. Slightly expanded. Lasix ordered by primary. Medication review. No change.
[2019-09-14] MEDS: CARDIZEM PO SCH ×4 (02:37→20:43)
[2019-09-14] MEDS: XOPENEX NEB INH SCH ×6 (03:45→23:26)
[2019-09-14] MEDS: DILAUDID IV PRN ×2 (04:27→20:43)
[2019-09-14] MEDS: NORCO-5 PO PRN ×3 (04:27→20:42)
[2019-09-14 04:56] LABS: ALLEN TEST YES; BE 2.2 mmoll (-3.0-3.0); BLOOD TYPE ARTERIAL; HCO3-(ACT) 26.5 mmoll (20.0-26.0); METHB 0.9 % (0.0-1.5); O2(CT) 20.1 mL/dL (15.0-23.0); O2HB 93.6 % (95.0-99.0); PCO2(98.6) 35 mmHg (35-45); PO2(98.6) 67 mmHg (60-100); SAMPLE BLOOD; SAO2 96.1 % (95.0-100.0); THB 15.3 g/dL (11.5-17.4); pH(98.6) 7.47 (7.35-7.45)
[2019-09-14 04:57] LABS: MODALITY HIGH FLOW NASAL CAN
--- NOTE | 2019-09-14 05:57 | Diag Imaging Result Doc PS360 ---
EXAM: CHEST-PORTABLE HISTORY: dyspnea TECHNIQUE: Single view COMPARISON: 09/13/2018 FINDINGS: Poor inspiratory effort. There is a moderate-sized right pleural effusion. There is basilar atelectasis and basilar infiltrates in addition to pulmonary edema. IMPRESSION: Mild interval worsening. Electronically signed by Weston Fabian 09/14/2019 5:54 AM
[2019-09-14] MEDS: PROTONIX IV SCH (06:11)
[2019-09-14] MEDS ORDERED: LASIX IV ONE (07:26)
[2019-09-14] MEDS: COLACE PO SCH ×2 (08:27→20:42)
[2019-09-14] MEDS: MIRALAX PO SCH ×2 (08:28→20:43)
[2019-09-14] MEDS: ZYVOX 600 MG/D5W 600 MG/300 ML IVPB IV SCH ×2 (08:28→21:26)
[2019-09-14] MEDS: MAXIPIME 2 GM in NS 100 ML IV SCH ×2 (08:28→20:43)
[2019-09-14] MEDS: DULCOLAX PR SCH ×3 (08:42→21:00)
[2019-09-14] MEDS: MUCOMYST 20% INH SCH ×2 (08:55→19:52)
[2019-09-14] MEDS: NS NEB INH SCH (08:56)
[2019-09-14 09:27] LABS: EOS# 0.48 X1000 (0.0-0.7); EOS% 2.2 % (0.0-10.0); HEMATOCRIT 44.7 % (42.0-52.0); LYMPH% 8.2 % (20.5-51.1); MCH 29.1 PG (27-31); MCHC 33.6 g/dL (33-37); MCV 86.8 FL (81-99); MONO# 1.27 X1000 (0.11-0.59); MONO% 5.8 % (1.7-9.3); MPV 10.6 FL (7.4-10.4); PLT 186 X1000 (130-400); RBC 5.15 XMIL (4.7-6.1); RDW 15.8 % (11.5-14.5); WBC 21.96 X1000 (4.8-10.8)
[2019-09-14 09:33] LABS: BANDS 1 % (0-1); EOS 3 % (1-10); LYMPHS 8 % (21-51); MONO 3 % (1-9); SEGS 75 % (42-75)
[2019-09-14 09:46] LABS: AGAP 19; BUN 29 mg/dL (8-22); CALCIUM 8.3 mg/dL (8.8-10.2); CHLORIDE 100 mmol/L (98-107); COSMO 287; CREATININE 1.2 mg/dL (0.7-1.2); GLUCOSE 95 mg/dL (70-104); POTASSIUM 3.3 mmol/L (3.5-5.1); SODIUM 141 mmol/L (136-145); TCO2 22 mmol/L (25-35)
[2019-09-14] MEDS: LOVENOX SUBQ SCH (10:12)
[2019-09-14] MEDS: KLOR-CON PO SCH ×3 (10:19→14:03)
[2019-09-14] MEDS: POTASSIUM CHLORIDE 20 MEQ/SWI 20 MEQ/100 ML IVPB IV SCH ×2 (10:44→12:31)
[2019-09-14] MEDS: TYLENOL PO PRN (11:31)
--- NOTE | 2019-09-14 12:42 | Diag Imaging Result Doc PS360 ---
EXAM: CT THORAX W/O CONTRAST INDICATION: SOB TECHNIQUE: This exam was performed using automated exposure control, adjustment of mA or kV according to patient size, and/or use of iterative reconstruction technique. COMPARISON: None. FINDINGS: There is a fairly large pleural fluid collection on the right that is probably partially loculated. There is significant atelectasis on the right including complete collapse of the right lower lobe. There are patchy airspace consolidations involving the inferior left upper lobe as well as the left lower lobe indicating pneumonia. These were also seen on a prior CT of the abdomen and pelvis dated 09/10/2019 but appear to have worsened. Consolidations at the right lung base seen on the previous study are obscured by the atelectasis. There are small shotty nonspecific mediastinal lymph nodes. Limited views of the upper abdomen are essentially unremarkable. IMPRESSION: 1.Fairly large right pleural fluid collection that appears to be partially loculated with associated significant atelectasis. 2.Patchy airspace consolidation involving the mid and lower lung zone on the left indicating multilobar pneumonia. Electronically signed by Tamir Harrison 09/14/2019 12:40 PM
--- NOTE | 2019-09-14 13:17 | PROGRESS NOTE ---
DATE: 09/14/2019 INTERVAL HISTORY: No acute events overnight. He has been tachycardic with heart rate between 90 to 100. He still is in atrial fibrillation. He has been on 70% FiO2 and he has been -2.9 L after dose of Lasix yesterday. SUBJECTIVE: He denies any additional complaints. He is still feeling sore. Complaints of shortness of breath, occasional cough. We discussed about right-sided pleural effusion, pneumonia, possible need for thoracenteses. I answered all of his questions. I also discussed with him that his erythema affecting bilateral feet could be related to ongoing sepsis. OBJECTIVE: Vital Signs: Temperature of 98.6 degrees, pulse 103, respiratory rate 17, blood pressure 110/79. He is saturating 96% on 70% FiO2 high-flow nasal cannula. General: On physical examination, not in acute distress. HEENT: Oral cavity is moist. Respiratory: He has significantly decreased air entry on right hemithorax. Adequate air entry with inspiratory crackles, left hemithorax. No wheeze or rhonchi. Cardiac: S1, S2 normal. Irregularly irregular. No murmur or gallop. Abdomen: Soft, nontender. Extremities: Mild bilateral lower extremity edema. Neurologic: He is alert and oriented x3. Genitourinary: He has urine catheter. He has -3.3 L so far today. LABORATORIES: His CBC is pending. ABG suggests PO2 of 67 on 75% high-flow nasal cannula. BMP is pending. No positive microbiological data. Chest x-ray suggests worsening pulmonary edema and effusion. ASSESSMENT AND PLAN: 1. Acute hypoxic respiratory failure and septic shock due to bilateral lower lobe pneumonia. Continue intravenous cefepime, linezolid, and oxygenation to maintain saturation more than 94%. After BMP, I will give him additional dose of Lasix. I will discuss with pulmonology regarding need for thoracenteses for diagnostic and therapeutic purpose. 2. Acute kidney injury due to acute tubular necrosis because of septic shock, now improving. Continue Perez catheter for close input and output monitoring. His hypokalemia is currently being replenished. 3. Atrial fibrillation with rapid ventricular rate due to septic shock. Follow up electrolytes. Continue oral diltiazem and enoxaparin for primary cerebrovascular accident prophylaxis. His echocardiogram had ejection fraction of 45%. 4. Constipation, now resolved. Continue pantoprazole for stress ulcer prophylaxis. 5. Disposition. His condition is critical. More than 30 minutes of critical care time was spent taking care of this patient. Continue to monitor him in Intensive Care Unit. cc: Victoriano Verde MD
--- NOTE | 2019-09-15 00:38 | INFECTIOUS DISEASE PROGRESS NO ---
DATE: 09/14/2019 PRESENT ILLNESS: Mr. Chester is being treated for multilobar pneumonia. There is also a large right pleural fluid collection that appears to be loculated, as seen on CT today. He also has a leukocytosis. MEDICATIONS: He is on day 3 of Zyvox 600 mg IV every 12 hours and day 1 of cefepime 2 g IV every 12 hours. PHYSICAL EXAMINATION: Vital Signs: Temperature is 98.6 degrees, pulse rate 107, respiratory rate 22, blood pressure 121/72, O2 saturation is 93% on a 40% high-flow nasal cannula. General: This is a somewhat ill-appearing, middle-aged gentleman. He is lying in bed, currently in no acute distress. HEENT: Atraumatic, normocephalic. Oral mucous membranes are pink and moist. Conjunctivae are pink. Neck: Supple. Trachea is midline. Cardiovascular: Irregularly irregular with atrial fibrillation on the monitor. Respiratory: Lung sounds are clear in the upper lobes with decreased breath sounds in the mid and bases. Abdomen: Soft, round and mildly tender to palpation. Bowel sounds are active. Neurologic: He is awake, alert, oriented. Able to move his extremities independently in the bed. LABORATORY AND X-RAY: Today, his white count is 21.96, hemoglobin 15, platelet count 186,000. ABG with pH is 7.47, pCO2 of 35, PO2 of 67 on 40% high-flow nasal cannula. Creatinine is 1.2. No GFR listed. A chest CT done today shows a large right pleural fluid collection that appears loculated and multilobar pneumonia on the left. Chest x-ray this morning shows some mild interval worsening. ASSESSMENT AND PLAN: Mr. Chester is being treated for multilobar pneumonia with a possible loculated effusion. There is a persistent leukocytosis, which has improved slightly since last check. He is receiving Zyvox and cefepime, which we will continue at this time. These plans have been discussed with and recommended by Dr. Carroll. COMORBIDITIES: Include obesity, atrial fibrillation, and history of gastric bypass. Dictated by ARINA Long for Mekhi Carroll MD cc: Mekhi Carroll MD [facility]
[2019-09-15] MEDS: CARDIZEM PO SCH ×4 (01:49→19:45)
[2019-09-15] MEDS: XOPENEX NEB INH SCH ×6 (03:12→23:11)
[2019-09-15 04:58] LABS: ALLEN TEST YES; BE 4.3 mmoll (-3.0-3.0); BLOOD TYPE ARTERIAL; HCO3-(ACT) 28.2 mmoll (20.0-26.0); METHB 1.4 % (0.0-1.5); O2(CT) 19.3 mL/dL (15.0-23.0); O2HB 93.3 % (95.0-99.0); PCO2(98.6) 35 mmHg (35-45); PO2(98.6) 68 mmHg (60-100); SAMPLE BLOOD; SAO2 96.1 % (95.0-100.0); THB 14.7 g/dL (11.5-17.4)
[2019-09-15 04:59] LABS: MODALITY HIGH FLOW NASAL CAN
[2019-09-15] MEDS: PROTONIX IV SCH (06:13)
[2019-09-15 06:19] LABS: AGAP 14; BUN 27 mg/dL (8-22); CHLORIDE 100 mmol/L (98-107); COSMO 283; ESTIMATED GFR > 60; GLUCOSE 104 mg/dL (70-104); POTASSIUM 3.4 mmol/L (3.5-5.1); SODIUM 139 mmol/L (136-145); TCO2 25 mmol/L (25-35)
--- NOTE | 2019-09-15 07:10 | Diag Imaging Result Doc PS360 ---
EXAM: CHEST-PORTABLE 09/15/2019 HISTORY: dyspnea TECHNIQUE: AP portable upright at 0509 COMMENT: There is some alveolar opacity present in the lingula or left lower lobe. There is a large right pleural effusion with compressive atelectasis in much of the right lower and middle lobes. The volume of pleural fluid is greater than on 09/13/2019 and is to some extent than on 09/14/2019. IMPRESSION: Worsening right pleural effusion. Left lower lobe pneumonia. Atelectasis versus pneumonia in the right lower lobe and middle lobe. Electronically signed by Cam Vidal 09/15/2019 7:08 AM
[2019-09-15] MEDS: MUCOMYST 20% INH SCH ×2 (08:32→19:40)
--- NOTE | 2019-09-15 08:41 | PROVIDER PROGRESS NOTE ---
Progress Note Pulmonary additional Note: Case assessed and full note to follow.
[2019-09-15] MEDS: LOPRESSOR IV SCH ×4 (08:50→19:45)
[2019-09-15] MEDS: DILAUDID IV PRN ×2 (08:51→16:58)
[2019-09-15] MEDS: MAXIPIME 2 GM in NS 100 ML IV SCH ×2 (08:54→22:54)
[2019-09-15] MEDS: ZYVOX 600 MG/D5W 600 MG/300 ML IVPB IV SCH ×2 (08:57→19:45)
[2019-09-15] MEDS: COLACE PO SCH ×2 (09:41→22:47)
[2019-09-15] MEDS: DULCOLAX PR SCH ×2 (09:42→22:47)
[2019-09-15] MEDS: MIRALAX PO SCH ×2 (09:42→22:48)
--- NOTE | 2019-09-15 11:13 | Diag Imaging Result Doc PS360 ---
EXAM: CHEST-2 VIEWS 09/15/2019 HISTORY: post thora TECHNIQUE: Inspiratory expiratory chest COMMENT: There is still apparent loculated fluid in the right pleural space. No evidence of pneumothorax is present. Compared to the previous examination of 09/15/2019 at 0509 there has been no appreciable change. IMPRESSION: No evidence of pneumothorax. Electronically signed by Cam Vidal 09/15/2019 11:11 AM
[2019-09-15] MEDS: NORCO-5 PO PRN ×2 (11:26→20:13)
--- NOTE | 2019-09-15 11:29 | Diag Imaging Result Doc PS360 ---
EXAM: US THORACENTESIS W/IMAGE GUIDE 09/15/2019 HISTORY: Diagnostic and therapeutic by radiologist TECHNIQUE: Ultrasound-guided thoracentesis COMMENT: Due to the fairly small pockets of fluid which are visible on ultrasonography, diagnostic aspiration of one of the pockets seen posterior medially on the right was performed under ultrasonographic guidance with a 20-gauge needle. Prior to the procedure the risks and benefits of the procedure including the possibility of bleeding, infection, reaction to lidocaine, or pneumothorax was discussed with the patient and he agreed to the procedure. Following sterile preparation of the skin and administration of 1% lidocaine to the skin and deeper soft tissues, the needle was placed and subsequently approximately 40 mL of slightly turbid yellow-orange fluid was aspirated. This is sent to the laboratory. IMPRESSION: Successful ultrasound-guided thoracentesis. Electronically signed by Cam Vidal 09/15/2019 11:27 AM
--- NOTE | 2019-09-15 11:42 | PROGRESS NOTE ---
DATE: 09/15/2019 INTERVAL HISTORY: No acute events overnight. He got chest CT scan yesterday which had detected loculated right-sided pleural effusion. He was given a dose of Lasix. He had - 3.3 L yesterday, - 135 mL so far today. He continues to have high requirement of oxygen and he states his breathing difficulty has been getting worse. He also has had intermittent atrial fibrillation with intermittent rapid ventricular rate. We discussed about his exam findings and need for thoracenteses. I answered all of his questions. VITALS: Currently vitals, temperature of 97.7 degrees. He had temperature of 100.6 degrees yesterday, pulse of 118, respiratory rate 31, blood pressure 104/74. He is saturating 92 to 94 percent on 70% high-flow nasal cannula. PHYSICAL EXAMINATION: General: In mild distress because of tachypnea. HEENT: Oral cavity is dry. Respiratory: Significantly decreased air entry right hemithorax. Adequate air entry on left supramammary region with inspiratory crackles on left inframammary region. Cardiovascular: S1, S2 normal. Irregularly irregular. Tachycardic. No murmur, rub, or gallop. Abdomen: Soft, nontender. No jugular venous distention. Extremities: He has bilateral lower extremity edema. LABS: No CBC today. ABG suggestive of PO2 of 68 on 70% high-flow nasal colon cannula. His hypokalemia is currently being repleted. IMAGING: Chest x-ray today morning suggests worsening right-sided pleural effusion. Chest CT suggest consolidation involving mid and lower lung indicating multilobar pneumonia. ASSESSMENT AND PLAN: 1. Acute hypoxic respiratory failure and septic shock due to bilateral lower lobe pneumonia with right-sided loculated pleural effusion. Continue intravenous cefepime, linezolid, and high- flow nasal cannula oxygenation. Considering he is hypotensive, I am holding his IV Lasix at the moment. Plan is to get a thoracentesis done today. Pulmonology on board. We will send pleural fluid for diagnostic purposes. 2. Acute kidney injury due to acute tubular necrosis because of septic shock, now improving. Continue Perez catheter for close input and output monitoring. 3. Atrial fibrillation with rapid ventricular rate due to septic shock. I will keep him on oral diltiazem and as needed IV metoprolol. I am holding his enoxaparin. His [id number] is less than 2 and I may just keep him on low-dose enoxaparin considering he is at risk of bleeding after the thoracentesis. 4. Constipation, now resolved. DISPOSITION: Patient's condition is critical considering acute hypoxic respiratory failure and pneumonia. I plan to continue patient monitoring in ICU. I called patient's son, Arturo, informed him about patient's critical condition. I answered all of his questions. cc: Victoriano Verde MD MTDD
[2019-09-15 13:10] LABS: PH BODY FLUID 7; SPECIMEN PLEURAL FLUID
[2019-09-15 13:24] LABS: AMYLASE BODY FLUID 20 U/L; GLUCOSE BODY FLUID 95 mg/dL; LDH BODY FLUID 747 U/L; TOTAL PROT BODY FLUID 3.3 g/dL
[2019-09-15 13:52] LABS: BODY FLUID SOURCE PLEURAL FLUID; WBC BF 880 /cumm
[2019-09-15 13:55] LABS: POLYS 48 %
[2019-09-15 13:56] LABS: MONOS 52 %
[2019-09-15 20:32] LABS: ALLEN TEST YES; BE 1.8 mmoll (-3.0-3.0); BLOOD TYPE ARTERIAL; METHB 1.2 % (0.0-1.5); O2(CT) 18.8 mL/dL (15.0-23.0); PCO2(98.6) 32 mmHg (35-45); SAMPLE BLOOD; THB 15.5 g/dL (11.5-17.4); pH(98.6) 7.49 (7.35-7.45)
[2019-09-15 20:34] LABS: MODALITY HIGH FLOW NASAL CAN; O2HB 86.6 % (95.0-99.0); PO2(98.6) 48 mmHg (60-100)
[2019-09-15] MEDS ORDERED: LASIX IV ONE (20:55)
[2019-09-15] MEDS: HALDOL IV PRN (20:58)
--- NOTE | 2019-09-15 21:13 | Diag Imaging Result Doc PS360 ---
CHEST-PORTABLE - 09/15/2019 8:20 PM INDICATION: change in RR COMPARISON: 11:08 AM FINDINGS: Stable moderate opacification of the right midlung and lung base, with some pleural effusion. Stable focal infiltrate in the left midlung. Heart size remains somewhat enlarged. No new infiltrates. IMPRESSION: No change from prior. Electronically signed by Mike Oleary 09/15/2019 9:10 PM
[2019-09-15 22:05] LABS: ALLEN TEST YES; BE -0.2 mmoll (-3.0-3.0); BLOOD TYPE ARTERIAL; HCO3-(ACT) 24.5 mmoll (20.0-26.0); METHB 0.9 % (0.0-1.5); O2(CT) 19.7 mL/dL (15.0-23.0); PCO2(98.6) 32 mmHg (35-45); PO2(98.6) 54 mmHg (60-100); SAMPLE BLOOD; SAO2 92.2 % (95.0-100.0); THB 15.6 g/dL (11.5-17.4); pH(98.6) 7.46 (7.35-7.45)
[2019-09-15 22:09] LABS: MODALITY BI PAP; O2HB 89.9 % (95.0-99.0)
[2019-09-15] MEDS ORDERED: LOPRESSOR IV ONE ×2 (22:32→23:53)
[2019-09-15] MEDS ORDERED: LANOXIN IV ONE (22:33)
--- NOTE | 2019-09-15 22:51 | INFECTIOUS DISEASE PROGRESS NO ---
DATE: 09/15/2019 PRESENT ILLNESS: The patient has pneumonia with pleural effusions. MEDICATIONS: This is day 4 of treatment with Zyvox and cefepime. PHYSICAL EXAMINATION: Vital Signs: Temperature is 99 degrees, pulse 116, respirations 21, blood pressure 96/62. General: This is a lethargic middle-aged male. He is in no acute distress. Head/eyes/ears/nose/throat: Throat no drainage was noted from the nose or the ears. I did not see any white coating of his tongue. Neck: No pain with movement. Lungs: There were diminished breath sounds on the right side. On the left side, it was clear. Cardiovascular: Heart rate is irregular. Abdomen: Soft and slightly tender on the right side in the upper quadrant. Neurologic: The patient is sleepy now. He does answer my questions. He can move his extremities. There is no tremor. LAB AND X-RAY: Chest x-ray shows worsening of the right pleural effusion and it also shows bilateral pneumonia. The pleural fluid white blood cell count was 880. Pleural fluid culture is pending. Legionella and pneumococcal antigens are negative. Blood gases show a pH of 7.5, a PO2 of 68, and a pCO2 of 35. The patient today had a thoracentesis. ASSESSMENT AND PLAN: Patient has pneumonia with effusion. My plan is to continue the current antibiotics following the pleural fluid culture. I am going to order QuantiFERON gold and procalcitonin. COMORBIDITIES: The patient has renal calculi. cc: Mekhi Carroll MD MTDD
[2019-09-16] MEDS: DILAUDID IV PRN (00:45)
[2019-09-16] MEDS: CARDIZEM PO SCH ×4 (02:55→19:38)
[2019-09-16] MEDS: LOPRESSOR IV SCH ×4 (02:55→21:38)
[2019-09-16] MEDS ORDERED: CORDARONE 360 MG/D5W 360 MG/200 ML IV.SOLN IV ONE (03:00)
[2019-09-16] MEDS ORDERED: CORDARONE 360 MG/D5W 360 MG/200 ML IV.SOLN ONE (03:33)
[2019-09-16] MEDS: XOPENEX NEB INH SCH ×6 (03:54→23:28)
[2019-09-16 04:31] LABS: ALLEN TEST YES; BE 0.2 mmoll (-3.0-3.0); BLOOD TYPE ARTERIAL; HCO3-(ACT) 25.1 mmoll (20.0-26.0); O2(CT) 21.1 mL/dL (15.0-23.0); O2HB 96.8 % (95.0-99.0); PCO2(98.6) 34 mmHg (35-45); PO2(98.6) 114 mmHg (60-100); SAMPLE BLOOD; SAO2 98.9 % (95.0-100.0); THB 15.4 g/dL (11.5-17.4); pH(98.6) 7.45 (7.35-7.45)
[2019-09-16 04:32] LABS: MODALITY BI PAP
[2019-09-16 04:58] LABS: AGAP 17; BUN 34 mg/dL (8-22); CALCIUM 8.1 mg/dL (8.8-10.2); CHLORIDE 96 mmol/L (98-107); COSMO 280; CREATININE 1.1 mg/dL (0.7-1.2); ESTIMATED GFR > 60; GLUCOSE 139 mg/dL (70-104); MAGNESIUM 2.1 mg/dL (1.5-2.7); POTASSIUM 3.5 mmol/L (3.5-5.1); SODIUM 135 mmol/L (136-145); TCO2 22 mmol/L (25-35)
[2019-09-16 05:19] LABS: EOS# 0.05 X1000 (0.0-0.7); EOS% 0.1 % (0.0-10.0); HEMATOCRIT 43.8 % (42.0-52.0); HEMOGLOBIN 14.6 g/dL (14.0-18.0); LYMPH# 1.64 X1000 (1.2-3.4); LYMPH% 4.6 % (20.5-51.1); MCHC 33.3 g/dL (33-37); MCV 87.1 FL (81-99); MONO% 5.3 % (1.7-9.3); MPV 10.4 FL (7.4-10.4); PLT 198 X1000 (130-400); RBC 5.03 XMIL (4.7-6.1); RDW 15.9 % (11.5-14.5); WBC 35.99 X1000 (4.8-10.8)
[2019-09-16] MEDS: PROTONIX IV SCH (06:22)
[2019-09-16 06:31] LABS: BANDS 4 % (0-1); LYMPHS 3 % (21-51); MONO 3 % (1-9); SEGS 82 % (42-75)
--- NOTE | 2019-09-16 06:50 | EKG Report ---
Test Performed on : 09/16/2019 04:25:07 AM Test Reason : ICU. NO EKG ORDER FOR MUSE Blood Pressure : / mmHG Vent. Rate : 093 BPM Atrial Rate : 093 BPM P-R Int : 152 ms QRS Dur : 102 ms QT Int : 398 ms P-R-T Axes : 050 -39 034 degrees QTc Int : 494 ms Normal sinus rhythm. Left axis deviation Prolonged QT Abnormal ECG When compared with ECG of 15-SEP-2019 22:16, (Unconfirmed) Sinus rhythm. has replaced Atrial fibrillation. Vent. rate has decreased BY 58 BPM Borderline criteria for Lateral infarct are no longer present T wave amplitude has decreased in Anterior leads Confirmed by Renata BRAGG, Stephon ([id number]) on 09/16/2019 11:40:11 AM
--- NOTE | 2019-09-16 06:50 | EKG Report ---
Test Performed on : 09/15/2019 10:16:26 PM Test Reason : ICU. NO EKG ORDER FOR MUSE Blood Pressure : / mmHG Vent. Rate : 151 BPM Atrial Rate : 214 BPM P-R Int : 000 ms QRS Dur : 096 ms QT Int : 338 ms P-R-T Axes : 000 -57 037 degrees QTc Int : 535 ms Atrial fibrillation. with rapid ventricular response. Left axis deviation Possible Lateral infarct , age undetermined Abnormal ECG When compared with ECG of 10-SEP-2019 09:57, Borderline criteria for Lateral infarct are now present ST now depressed in Lateral leads Nonspecific T wave abnormality has replaced inverted T waves in Inferior leads Confirmed by Renata BRAGG, Stephon ([id number]) on 09/16/2019 11:39:54 AM
--- NOTE | 2019-09-16 06:55 | Diag Imaging Result Doc PS360 ---
CHEST-PORTABLE - 09/16/2019 INDICATION: dyspnea COMPARISON: 09/15/2019 FINDINGS: There has been decrease in the extent of opacification in the lateral right upper lobe. Stable opacification at the right lung base. The left lung remains clear. Heart size remains normal. IMPRESSION: Improved aeration of the right lung. Electronically signed by Mike Oleary 09/16/2019 6:52 AM
[2019-09-16] MEDS: MUCOMYST 20% INH SCH ×2 (08:25→19:35)
[2019-09-16] MEDS: ZYVOX 600 MG/D5W 600 MG/300 ML IVPB IV SCH ×2 (08:30→19:38)
[2019-09-16] MEDS: MIRALAX PO SCH ×2 (08:30→21:41)
[2019-09-16] MEDS: COLACE PO SCH ×2 (08:30→21:41)
[2019-09-16] MEDS: LASIX IV SCH ×3 (08:31→19:38)
[2019-09-16] MEDS ORDERED: CORDARONE 540 MG in D5W 289.2 ML IV ONE (09:00)
[2019-09-16] MEDS: MAXIPIME 2 GM in NS 100 ML IV SCH ×2 (09:00→19:46)
[2019-09-16] MEDS: DULCOLAX PR SCH ×2 (09:35→21:40)
[2019-09-16] MEDS: LOVENOX SUBQ SCH (10:20)
[2019-09-16] MEDS: LEVAQUIN PO SCH (12:20)
--- NOTE | 2019-09-16 17:08 | PROGRESS NOTE ---
DATE: 09/16/2019 INTERVAL HISTORY: Mr. Chester underwent thoracentesis of the right thorax yesterday, which he tolerated well, but only 40 mL of fluid could be taken out. His respiratory distress had started becoming worse 2 hours later part of the day, and he went into atrial fibrillation with rapid ventricular rate, so he was started on amiodarone drip and was put on BiPAP. His condition improved on BiPAP overnight. In the morning time, we were able to put him back on high-flow nasal cannula. He also received amiodarone bolus after which he spontaneously converted to normal sinus rhythm, so a drip was not started. SUBJECTIVE: Mr. Chester is feeling better today than yesterday. He denies any chest pain. He is not feeling short of breath at rest. He is occasionally coughing. Denies any nausea, vomiting. I discussed with him about eating a little less if he needs to go back on BiPAP. I answered all of his questions. His EKG had normal sinus rhythm. VITALS: Currently temperature of 98.4 degrees, pulse of 85, respiratory rate 28, blood pressure 125/83. He is saturating 89% on high-flow nasal cannula. PHYSICAL EXAMINATION: General: Not in acute distress. Oral cavity: Moist. Lungs: He has significantly decreased air entry in right infrascapular region. Adequate air entry and left hemithorax. Heart: S1, S2 normal. Regular. No murmur, rub, or gallop. Abdomen: Soft, nontender. Active bowel sounds. Extremities: He has bilateral lower extremity edema. INTAKE/OUTPUT: Input and output suggest -200 mL yesterday. LABS: Suggestive of leukocytosis. Normal hemoglobin, normal platelet count. ABG suggestive of PO2 of 114 on BiPAP. He does have hyponatremia, hypochloremia, elevated BUN and normal creatinine. Pleural fluid analysis suggests both neutrophilic and lymphocytic predominance, high glucose, high LDL and high protein suggestive of exudative pleural fluid. MICROBIOLOGY: Pleural fluid culture is in lab. IMAGING: Chest x-ray suggests improved aeration of the right lung. ASSESSMENT AND PLAN: 1. Acute hypoxic respiratory failure and septic shock due to bilateral lower lobe pneumonia predominantly on the right side with right-sided loculated pleural effusion, status post diagnostic thoracenteses. Continue intravenous cefepime, linezolid and oxygenation to maintain saturation more than 90%. Start patient on intravenous Lasix. If he becomes hypotensive, my plan is to start him on norepinephrine. Follow up final pleural fluid culture results; so far, it is suggestive of exudative effusion. 2. Atrial fibrillation with rapid ventricular rate, likely in the setting of septic shock. He converted to normal sinus rhythm after amiodarone bolus. I will keep him on oral diltiazem, and if needed we will start him on diltiazem drip. I will keep him on low-dose enoxaparin for primary cerebrovascular accident prophylaxis. He denies known history of stroke, heart failure, diabetes, and his CHADS2-Vasc score does not warrant therapeutic anticoagulation at the moment. 3. Acute kidney injury due to acute tubular necrosis because of septic shock, now improved. Continue Perez catheter. 4. Constipation, resolved. DISPOSITION: The patient's condition is still critical considering high oxygen demand. I will keep him in hospital and monitor him. TIME SPENT: More than 30 minutes critical time was spent today on this patient. cc: Victoriano Verde MD
--- NOTE | 2019-09-16 21:12 | INFECTIOUS DISEASE PROGRESS NO ---
DATE: 09/16/2019 PRESENT ILLNESS: The patient has pneumonia with pleural effusion. His x-ray shows improvement and the patient has not had any further fever and he is feeling better. However, the white blood cell count increased quite a bit. MEDICATIONS: This is the 5th day of treatment with the combination of Zyvox and cefepime. PHYSICAL EXAMINATION: Vital Signs: Temperature is 99 degrees, pulse 92, respirations 24, blood pressure is 109/83. General: The patient is alert today. He says he is feeling better. He is in no acute distress. Head/eyes/ears/nose/throat: No drainage noted from the nose or ears. I did not see any white patches in his mouth. Neck: No pain with movement. Lungs: There were diminished breath sounds on the right side. The left side was clear. Cardiovascular: Heart rate is irregular. Abdomen: Soft and nontender. Neurologic: The patient is alert. He can move his extremities. He does not have a tremor. LAB AND X-RAY: Chest x-ray shows there is decreased opacification of the right upper lobe and the right lower lobe is stable. The pleural fluid culture is pending. The pleural fluid that was obtained yesterday by thoracentesis has a white blood cell count of 880, the white cells are equally distributed as polymorphic nuclear or mononuclear. The patient's CBC shows a white count of 35,990, hemoglobin 14.6 and platelet count 198,000. ASSESSMENT AND PLAN: The patient has pneumonia with an effusion. He clinically is getting better. His x-ray is improved but his white count increased. The patient still has a QuantiFERON and procalcitonin which I ordered yesterday and today I have added p.o. Levaquin 750 mg daily. Some of the side effects of the antibiotic including rash, diarrhea, seizures, and tendon rupture have been explained to the patient who agrees with treatment. COMORBIDITIES: The patient has renal calculi. cc: Mekhi Carroll MD
[2019-09-16] MEDS: NORCO-5 PO PRN (21:48)
[2019-09-17] MEDS: LASIX IV SCH (01:48)
[2019-09-17] MEDS: CARDIZEM PO SCH ×4 (01:48→20:01)
--- NOTE | 2019-09-17 02:13 | GENERAL SURGERY CONSULTATION ---
DATE: 09/16/2019 REQUESTING PHYSICIAN: Dr. Sherman. REASON FOR CONSULTATION: Potential for right-sided VATS. HISTORY OF PRESENT ILLNESS: A 49-year-old gentleman initially admitted on 09/10/2019, for complaints of right-sided flank pain, nasal congestion, cough, fever, and chills. He had an extensive workup and has developed a loculated right-sided pleural effusion. There have been attempts done by the radiologist to try to do a thoracentesis, but the area was too thick and the fluid to loculated to successfully do this. He has had a CT scan that did show this loculated pleural effusion and almost looked like an abscess or fluid collection in his major fissure on the right side. Given the inability to do this with thoracentesis, they asked me to evaluate the patient. The patient is in no respiratory distress right now and says he is breathing okay. I reviewed his CT scan. Again, I was asked to weigh an opinion. PAST MEDICAL HISTORY: Includes hypertension, iron deficiency anemia. PAST SURGICAL HISTORY: Includes right clavicle surgery, left knee surgery, and history of gastric bypass. FAMILY HISTORY: Positive for diabetes and hypertension. ALLERGIES: None. MEDICATIONS: MAR reviewed. Of note, he is on Levaquin, Maxipime, and Zyvox. SOCIAL HISTORY: Lives alone. Denies alcohol, tobacco, or illicit drugs. REVIEW OF SYSTEMS: A full 14-systems reviewed and negative, except as specified in HPI. PHYSICAL EXAMINATION: Vital Signs: The patient is currently afebrile. His vital signs have been stable. He is a little tachypneic and the respiratory rate 25. General: No acute distress, but appears chronically ill. male, looks stated age. HEENT: Normocephalic, atraumatic. Pupils equal, round, reactive to light. Mucous membranes moist. Oropharynx benign. Neck: Supple. Trachea midline. Cardiovascular: Regular rate and rhythm. Lungs: Decreased breath sounds on the right. Abdomen: Soft, nontender, nondistended. Extremities: Moves all extremities. Neurologic: Grossly intact. Skin: No signs of jaundice. Vascular: All extremities perfused. LABORATORY AND DIAGNOSTIC DATA: White blood count 35, hematocrit and platelet count normal. ABG reviewed. Remainder of labs reviewed. CT scan and chest x-ray reviewed with the radiologist. ASSESSMENT AND PLAN: A 49-year-old gentleman with loculated pleural effusion on the right. Loculated pleural effusion on the right: At this time given the unsuccessful nature of the thoracentesis, this is probably not going to be easily drained with just a chest tube. We will plan on surgical intervention on Thursday, when we have a full operating room crew. We will plan on doing a video-assisted thoracoscopic surgery versus thoracotomy for decortication and chest tube placement. We will continue to follow while he is in the hospital. cc: Moody James MD
[2019-09-17] MEDS: LOPRESSOR IV SCH ×4 (02:53→20:17)
[2019-09-17] MEDS: XOPENEX NEB INH SCH ×6 (03:27→23:07)
[2019-09-17 05:55] LABS: AGAP 24; BUN 23 mg/dL (8-22); CALCIUM 7.3 mg/dL (8.8-10.2); CHLORIDE 96 mmol/L (98-107); COSMO 268; CREATININE 0.9 mg/dL (0.7-1.2); ESTIMATED GFR > 60; GLUCOSE 204 mg/dL (70-104); POTASSIUM 4.2 mmol/L (3.5-5.1); SODIUM 129 mmol/L (136-145); TCO2 9 mmol/L (25-35)
[2019-09-17] MEDS: PROTONIX IV SCH (06:31)
--- NOTE | 2019-09-17 07:01 | Diag Imaging Result Doc PS360 ---
EXAM: CHEST-PORTABLE HISTORY: dyspnea TECHNIQUE: Single view COMPARISON: 09/16/2019 FINDINGS: There is a [id number] sized right pleural effusion. There are underlying infiltrates and atelectasis. No interval improvement. No cardiomegaly. Small infiltrates are present in the mid left lung. No left pleural effusion identified. IMPRESSION: Mild interval worsening Electronically signed by Weston Fabian 09/17/2019 6:59 AM
[2019-09-17] MEDS: MAXIPIME 2 GM in NS 100 ML IV SCH ×2 (08:27→20:01)
[2019-09-17] MEDS: ZYVOX 600 MG/D5W 600 MG/300 ML IVPB IV SCH ×2 (08:27→20:01)
[2019-09-17] MEDS: MIRALAX PO SCH ×2 (08:29→20:48)
[2019-09-17] MEDS: DULCOLAX PR SCH ×2 (08:29→20:48)
[2019-09-17] MEDS: LEVAQUIN PO SCH (08:30)
[2019-09-17] MEDS: COLACE PO SCH ×2 (08:30→20:48)
[2019-09-17] MEDS: MUCOMYST 20% INH SCH ×2 (08:45→19:33)
[2019-09-17] MEDS: LOVENOX SUBQ SCH (09:02)
[2019-09-17] MEDS: NS NEB INH SCH ×2 (12:16→16:13)
--- NOTE | 2019-09-17 18:27 | PROGRESS NOTE ---
DATE: 09/17/2019 INTERVAL HISTORY: No acute events overnight. SUBJECTIVE: Mr. Chester denies any complaints. He states he is not feeling short of breath at rest. He denies any chest pain or cough. We discussed about surgical team's recommendations about possible need for decortication on Thursday. I answered all of his questions. VITALS: Currently, temperature of 98.9 degrees, pulse 76, respiratory rate 26, blood pressure 124/70. He is saturating 97% on 55% high-flow nasal cannula. PHYSICAL EXAMINATION: He does have minimal air entry on right hemithorax. Adequate air entry on left hemithorax. S1, S2 normal, regular. No murmur or gallop.Abdomen: Soft. Active bowel sounds. Nontender. He has significant edema of bilateral lower extremities. Intake and output suggest he is -1.6 L so far today. LABORATORY DATA: No CBC today. BMP suggestive of hyponatremia, hypochloremia. Microbiology, no positive data so far. Pleural fluid analysis was negative. ASSESSMENT AND PLAN: 1. Acute hypoxic respiratory failure and septic shock due to bilateral lower lobe pneumonia and right-sided loculated pleural effusion, status post diagnostic thoracentesis without any definitive yield. Continue intravenous cefepime, linezolid, and levofloxacin, as per Infectious Disease recommendation. Continue high-flow nasal cannula oxygen to maintain saturation more than 90%, and give as-needed Lasix. He has been off norepinephrine now. Considering loculated nature of his pleural effusion, surgical team is planning decortication procedure on 09/19/2019. 2. Atrial fibrillation with rapid ventricular rate. Currently in normal sinus rhythm after amiodarone bolus. Continue oral diltiazem. 3. Acute kidney injury due to acute tubular necrosis on presentation. Now resolved. I will consider removing Perez catheter. His constipation has resolved as well. 4. Disposition. His condition is critical. I will continue to monitor him inside ICU. Plan of care discussed with the patient and his questions have been answered. cc: Victoriano Verde MD
[2019-09-17] MEDS: DILAUDID IV PRN (18:30)
[2019-09-17] MEDS: TYLENOL PO PRN (20:17)
--- NOTE | 2019-09-17 20:41 | GENERAL SURGERY PROGRESS NOTE ---
DATE: 09/17/2019 SUBJECTIVE: Nursing staff reports that the patient has been doing okay. The patient is resting currently. OBJECTIVE: Vital Signs: Patient is currently afebrile. Vital signs stable. General: Resting. Cardiovascular: Regular rate and rhythm. Lungs: On CPAP machine, saturating in the 90s. Abdomen: Nondistended. ASSESSMENT AND PLAN: A 49-year-old gentleman with loculated effusion on the right. Loculated effusion on the right: We will plan on surgical intervention on Thursday. We will continue to monitor over the weekend. cc: Moody James MD
--- NOTE | 2019-09-18 01:11 | PROGRESS NOTE ---
DATE: 09/17/2019 SUBJECTIVE: The patient denies chest discomfort or shortness of breath on high-flow supplemental oxygen per nasal cannula. He continues in sinus rhythm. OBJECTIVE: Vital Signs: Blood pressure 113/81, heart rate 81, with ECG monitor showing sinus rhythm. Oxygen saturation 99%. Neck: There is no significant jugular distention. Lungs: Auscultation of chest reveals coarse breath sounds bilaterally. Cardiac: Reveals a regular rate and rhythm without appreciable murmur or gallop. There is trace bilateral lower extremity edema. LABORATORY DATA: Includes a sodium 129, potassium 4.2, chloride 96, carbon dioxide 9, BUN 23, creatinine 0.7. IMPRESSION: 1. Acute hypoxemic respiratory failure and septic shock related to bilateral pneumonia. 2. Episode of atrial fibrillation, likely provoked by noncardiac illness. Patient continues in sinus rhythm. RECOMMENDATIONS: 1. Continue current diltiazem 60 mg p.o. q.6 hours. 2. Continue to monitor rhythm and consider further intervention should he have recurrent atrial fibrillation with rapid ventricular rate. cc: Shahid Shepherd MD
[2019-09-18] MEDS: CARDIZEM PO SCH ×4 (01:56→20:08)
[2019-09-18] MEDS: LOPRESSOR IV SCH ×4 (02:04→20:11)
[2019-09-18] MEDS: XOPENEX NEB INH SCH ×6 (03:15→23:51)
[2019-09-18 06:09] LABS: BASO# 0.08 X1000 (0.0-0.2); BASO% 0.4 % (0.0-0.8); EOS# 0.09 X1000 (0.0-0.7); EOS% 0.4 % (0.0-10.0); HEMATOCRIT 38.2 % (42.0-52.0); HEMOGLOBIN 12.4 g/dL (14.0-18.0); IMM GRAN# 1.69 X1000 (0.0-0.04); IMM GRAN% 7.8 % (0.0-0.5); LYMPH# 1.24 X1000 (1.2-3.4); LYMPH% 5.7 % (20.5-51.1); MCH 28.7 PG (27-31); MCHC 32.5 g/dL (33-37); MCV 88.4 FL (81-99); MONO# 1.21 X1000 (0.11-0.59); MONO% 5.6 % (1.7-9.3); MPV 10.7 FL (7.4-10.4); NEUT# 17.43 X1000 (1.4-6.5); NEUT% 80.1 % (42.2-75.2); PLT 196 X1000 (130-400); RBC 4.32 XMIL (4.7-6.1); RDW 15.6 % (11.5-14.5); WBC 21.74 X1000 (4.8-10.8)
[2019-09-18 06:30] LABS: AGAP 11; BUN 29 mg/dL (8-22); CALCIUM 8.3 mg/dL (8.8-10.2); CHLORIDE 94 mmol/L (98-107); COSMO 273; CREATININE 0.8 mg/dL (0.7-1.2); ESTIMATED GFR > 60; GLUCOSE 106 mg/dL (70-104); MAGNESIUM 1.9 mg/dL (1.5-2.7); POTASSIUM 3.2 mmol/L (3.5-5.1); SODIUM 133 mmol/L (136-145); TCO2 28 mmol/L (25-35)
[2019-09-18] MEDS: PROTONIX IV SCH (07:05)
[2019-09-18 07:07] LABS: BANDS 2 % (0-1); LYMPHS 12 % (21-51); MONO 2 % (1-9); SEGS 78 % (42-75)
[2019-09-18] MEDS: MUCOMYST 20% INH SCH ×2 (08:21→19:32)
[2019-09-18] MEDS: DULCOLAX PR SCH ×2 (08:41→20:10)
[2019-09-18] MEDS: MAXIPIME 2 GM in NS 100 ML IV SCH (08:47)
[2019-09-18] MEDS: ZYVOX 600 MG/D5W 600 MG/300 ML IVPB IV SCH (08:48)
[2019-09-18] MEDS: MIRALAX PO SCH ×2 (08:50→20:08)
[2019-09-18] MEDS: LEVAQUIN PO SCH (08:53)
[2019-09-18] MEDS: COLACE PO SCH ×2 (08:53→20:08)
[2019-09-18] MEDS: KLOR-CON PO SCH ×2 (08:53→10:48)
[2019-09-18] MEDS: LOVENOX SUBQ SCH (09:00)
[2019-09-18 09:23] LABS: AGAP 11; BUN 25 mg/dL (8-22); CHLORIDE 99 mmol/L (98-107); COSMO 273; CREATININE 0.8 mg/dL (0.7-1.2); ESTIMATED GFR > 60; GLUCOSE 109 mg/dL (70-104); POTASSIUM 2.9 mmol/L (3.5-5.1); SODIUM 134 mmol/L (136-145); TCO2 24 mmol/L (25-35)
[2019-09-18] MEDS ORDERED: KLOR-CON PO SCH (09:45)
[2019-09-18] MEDS ORDERED: POTASSIUM CHLORIDE 20 MEQ/SWI 20 MEQ/100 ML IVPB IV SCH (10:00)
[2019-09-18] MEDS ORDERED: POTASSIUM CHLORIDE 40 MEQ/SWI 40 MEQ/100 ML IVPB IV ONE (10:00)
--- NOTE | 2019-09-18 10:25 | GENERAL SURGERY PROGRESS NOTE ---
DATE: 09/18/2019 SUBJECTIVE: Patient seems to be doing okay. Nursing staff reports no major issues. OBJECTIVE: Vital Signs: The patient is currently hemodynamically stable. General Examination: Resting. Cardiovascular: Regular rate and rhythm. Lungs: On the CPAP machine. Abdomen: Nondistended. ASSESSMENT AND PLAN: A 49-year-old with loculated pleural effusion on the right. Loculated pleural effusion on the right. At this time, we will plan on surgical intervention tomorrow. He is going to be nothing per oral after midnight. Discussed extensively with the family of the risks, benefits, and alternatives of the procedure with risks including but not limited to bleeding, infection, risk of anesthesia, risk of injuring surrounding tissues, risk of rib fractures, all discussed. All questions answered. cc: Moody James MD
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
[2019-09-18] MEDS: DILAUDID IV PRN ×3 (11:37→23:07)
[2019-09-18] MEDS: NS NEB INH SCH ×2 (11:52→16:10)
[2019-09-18] MEDS: TUMS PO SCH ×2 (13:40→18:18)
--- NOTE | 2019-09-18 16:47 | INFECTIOUS DISEASE PROGRESS NO ---
DATE: 09/18/2019 PRESENT ILLNESS: The patient has pneumonia with pleural effusion. MEDICATIONS: This is the 7th day of treatment with Zyvox and cefepime and the 2nd day of treatment with Levaquin. PHYSICAL EXAMINATION: Vital Signs: Temperature is 98 degrees, pulse 73, respirations 37, blood pressure is 106/67. General: This is an ill-appearing middle-aged male. He is in no acute distress. Head/eyes/ears/nose/throat: He can hear my spoken words and see near objects. There is no drainage from his nose or ears. Neck: No stiffness. Lungs: Show diminished breath sounds on the right side. The left side was clear. Cardiovascular: Heart rate is regular. Abdomen: Soft and nontender. Neurologic: The patient is alert. He can move his extremities. He does not have a tremor. He talks in a coherent fashion. LAB AND X-RAY STUDIES: Patient's chest x-ray shows small to moderate size right pleural effusion. There are underlying infiltrates and atelectasis. There are some small infiltrates present in the left lung. Overall the radiologist said that there is mild interval worsening. ASSESSMENT AND PLAN: Patient has pneumonia with effusion. It appears that the effusion is loculated and he is going to have to have a decortication tomorrow, which is going to be performed by Dr. James. The patient's white blood cell count however and it has come down quite a bit and this seemed to occur when the patient was started on Levaquin. The CBC shows a white count of 21,740, hemoglobin 12.4, and platelet count 196,000. The patient has pneumonia with effusion. Tomorrow he is going to undergo decortication performed by Dr. James. Since the patient's white blood cell count came down when the patient was started on Levaquin, I have continued that but discontinued cefepime and Zyvox. COMORBIDITIES: As regarding his pulmonary process, there are no underlying comorbidities. cc: Mekhi Carroll MD
[2019-09-19] MEDS: XOPENEX NEB INH SCH ×6 (03:04→23:05)
[2019-09-19] MEDS: LOPRESSOR IV SCH ×4 (03:06→19:41)
[2019-09-19] MEDS: DILAUDID IV PRN ×4 (03:12→23:41)
[2019-09-19] MEDS: CARDIZEM PO SCH ×4 (03:12→19:43)
[2019-09-19] MEDS: PROTONIX IV SCH (06:00)
[2019-09-19 07:05] LABS: BASO# 0.06 X1000 (0.0-0.2); BASO% 0.3 % (0.0-0.8); EOS# 0.13 X1000 (0.0-0.7); EOS% 0.7 % (0.0-10.0); HEMATOCRIT 39.2 % (42.0-52.0); HEMOGLOBIN 12.5 g/dL (14.0-18.0); IMM GRAN# 0.87 X1000 (0.0-0.04); IMM GRAN% 4.5 % (0.0-0.5); LYMPH# 1.28 X1000 (1.2-3.4); LYMPH% 6.6 % (20.5-51.1); MCH 28.7 PG (27-31); MCHC 31.9 g/dL (33-37); MCV 90.1 FL (81-99); MONO# 1.39 X1000 (0.11-0.59); MONO% 7.1 % (1.7-9.3); MPV 10.4 FL (7.4-10.4); NEUT# 15.77 X1000 (1.4-6.5); NEUT% 80.8 % (42.2-75.2); PLT 230 X1000 (130-400); RBC 4.35 XMIL (4.7-6.1); RDW 15.8 % (11.5-14.5)
[2019-09-19] MEDS: MUCOMYST 20% INH SCH ×2 (07:28→20:08)
[2019-09-19 07:30] LABS: AGAP 7; BUN 20 mg/dL (8-22); CALCIUM 8.7 mg/dL (8.8-10.2); CHLORIDE 99 mmol/L (98-107); COSMO 273; CREATININE 0.8 mg/dL (0.7-1.2); ESTIMATED GFR > 60; GLUCOSE 101 mg/dL (70-104); POTASSIUM 4.6 mmol/L (3.5-5.1); SODIUM 135 mmol/L (136-145); TCO2 29 mmol/L (25-35)
--- NOTE | 2019-09-19 07:58 | GENERAL SURGERY PROGRESS NOTE ---
DATE: 09/19/2019 SUBJECTIVE: Patient seems to be doing okay. Nursing staff reports no major issues. OBJECTIVE: Vital Signs: The patient is currently afebrile. His vital signs are stable. General Examination: No acute distress. Cardiovascular: Regular rate and rhythm. Lungs: Unchanged. He is wearing a CPAP machine. Abdomen: Soft, nontender, nondistended. ASSESSMENT AND PLAN: A 49-year-old gentleman with loculated right pleural effusion. Loculated pleural effusion on the right. At this time, we will plan on surgical intervention today. He had no questions. We discussed the risks, benefits, alternatives, and documented in the chart previously. We will plan on surgical intervention today. cc: Moody James MD
[2019-09-19] MEDS ORDERED: NORCURON ONE (08:03)
[2019-09-19] MEDS ORDERED: FENTANYL ONE (08:05)
[2019-09-19] MEDS ORDERED: DIPRIVAN 1% ONE (08:05)
[2019-09-19] MEDS ORDERED: ROBINUL ONE ×2 (08:06→11:25)
[2019-09-19] MEDS ORDERED: QUELICIN (DOSE) ONE (08:06)
[2019-09-19] MEDS ORDERED: XYLOCAINE-MPF 2% ONE ×2 (08:06→09:22)
[2019-09-19] MEDS ORDERED: SODIUM CHLORIDE 0.9% 20 ML ONE (08:09)
[2019-09-19] MEDS ORDERED: NEO-SYNEPHRINE ONE (08:09)
[2019-09-19] MEDS ORDERED: ZOFRAN ONE (08:11)
--- NOTE | 2019-09-19 08:24 | INFECTIOUS DISEASE PROGRESS NO ---
DATE: 09/19/2019 PRESENT ILLNESS: The patient has pneumonia with pleural effusion. In some areas, it is loculated. MEDICATIONS: This is the third day of Levaquin. Yesterday, I stopped Zyvox and cefepime. Since I started the patient on Levaquin, the white blood cell count has decreased, so I have continued Levaquin, but stopped Zyvox and cefepime, which the patient previously was on. PHYSICAL EXAMINATION: Vital Signs: Temperature is 98.2 degrees, pulse 66, respirations 16, blood pressure 110/58. General: This is an ill-appearing, middle-aged male. He is in no acute distress. HEENT: He can hear my spoken words and see near objects. I did not see any white patches in his mouth. Neck: No pain with movement. Lungs: Clear to auscultation. Cardiovascular: Heart rate is regular. Abdomen: Soft and nontender. Neurologic: The patient is alert. He can move his extremities. He does not have a tremor. He talks in a coherent fashion. IMAGING AND LABORATORY DATA: There is no new radiographic study yet today. The patient's CBC shows a white count of 19,500, hemoglobin 12.5, and platelet count of 230,000. Procalcitonin was 1.6, which translates into the patient very likely has pneumonia. ASSESSMENT AND PLAN: The patient has pneumonia with loculated pleural effusions. I plan to continue Levaquin as a single agent. I have ordered it to be given intravenously. The patient is to have surgery by Dr. James performed today. I am treating the patient with Levaquin because of his pneumonia and the fact that he had a very elevated white count, which is gradually coming down now. The patient's procalcitonin is 1.6, which translates into the patient very likely having pneumonia. COMORBIDITIES: The patient did not have any comorbidity that I could detect as regarding his pneumonia. cc: MD KADI Mckoy
[2019-09-19] MEDS: DULCOLAX PR SCH ×2 (08:25→22:31)
[2019-09-19] MEDS: COLACE PO SCH ×2 (08:25→22:31)
[2019-09-19] MEDS: TUMS PO SCH ×3 (08:25→16:45)
[2019-09-19] MEDS: MIRALAX PO SCH ×2 (08:26→22:32)
[2019-09-19] MEDS ORDERED: LUBRIFRESH PM OPH OINTMENT ONE (08:46)
[2019-09-19] MEDS: LOVENOX SUBQ SCH (09:01)
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
[2019-09-19] MEDS ORDERED: LR 1,000 ML ONE (09:14)
[2019-09-19] MEDS ORDERED: SENSORCAINE-MPF 0.5%/EPI 1:200,000 ONE (09:14)
[2019-09-19] MEDS: LEVAQUIN 750 MG/D5W 750 MG/150 ML IVPB IV SCH (11:00)
[2019-09-19] MEDS ORDERED: NEOSTIGMINE ONE (11:25)
[2019-09-19] MEDS ORDERED: EXPAREL 1.3% ONE (11:37)
--- NOTE | 2019-09-19 13:16 | Diag Imaging Result Doc PS360 ---
EXAM: CHEST-PORTABLE HISTORY: chest tube placement TECHNIQUE: Single view COMPARISON: 5:38 AM FINDINGS: A right-sided chest tube has been placed since the prior exam. Slight decrease in the size of the right pleural effusion. Slightly improved aeration in the lower right lung. IMPRESSION: Slight improvement following placement of the right-sided chest tube Electronically signed by Weston Fabian 09/19/2019 1:14 PM
[2019-09-19] MEDS: NORCO-5 PO PRN ×2 (15:15→22:40)
--- NOTE | 2019-09-19 15:40 | OPERATIVE NOTE ---
PROCEDURE DATE: 09/19/2019 PREOP DIAGNOSIS: Loculated right pleural effusion. POSTOP DIAGNOSIS: Loculated right pleural effusion. PROCEDURE: 1. Bronchoscopy. 2. Right side video-assisted thorascopic surgery converted to open thoracotomy with decortication and drainage of pleural fluid. SURGEON: Moody James MD. WOOD MODEL BUILDER: Dr. Bajwa and Dr. Mohit Muir both assisted with entirety the case, his presence was crucial completion of the case. ANESTHESIA: General endotracheal. OPERATIVE FINDINGS: Bronch no masses noted, fluid noted in chest looks serosanguineous sent off for cultures. COMPLICATIONS: None at time dictation. ESTIMATED BLOOD LOSS: 50 mL. SPECIMEN REMOVED: Culture. DRAINS: 32-Somali chest tube. BRIEF HISTORY: 49-year-old gentleman with a loculated pleural effusion, it was too thick to be drained by ultrasound guidance is felt he would benefit from a surgical intervention. The risks, benefits, alternatives discussed, all questions answered. DESCRIPTION OF PROCEDURE: After informed consent was obtained patient brought to the operative theatre, transferred op, placed supine position. General endotracheal anesthesia was then performed without complication. Formal time-out was then performed confirming patient, date, procedure all in agreement. At that time attention was first given the bronchoscopy. We inserted the bronchoscopy through the ET tube, passed it all the way down. We viewed all branches of the right side and left side. There were no masses, no obstructing lesions. The right side seemed a little bit compressed but again was patent. We removed the scope. The anesthesiologist changed to a dual lumen tube, we then placed him right side up prepped and draped the chest on the right side in a sterile fashion. After repeated time-out we turned our attention to the right side we marked the landmark of the tip of the scapula and in the 6th intercostal space made an incision in the posterior axillary line, carried the way down to enter into the chest, we able initially place a trocar into the chest. It was significantly inflamed. We could not see much. We then made another counterincision in the 6th intercostal space more posteriorly able to get a trocar in also, still could not see much. We therefore elected to convert to an open thoracotomy. We connected these 2 incisions, carried all the way down to the muscle layer into the ribs stayed above the rib. We were able to enter into chest was able get my hand in there, I saw the lung, were able to bluntly dissect and decorticate some fibrinous material was able to drain some serous fluid that was posterior and superior which looked like it was the fluid on the CT scan. We were able to get into a fissure and drain as much as we could. We sent off this fluid for culture. At this point we felt as though we had freed up the lung. It was able to insufflate when they were able to breathe on that side. We placed a 32-Somali chest tube from a inferior rib space directed it superior and posterior secured in place then closed the thoracotomy incision in layers and we also closed the skin with albina. The patient tolerated the procedure well, transferred back to recovery room. cc: Moody James MD
[2019-09-20] MEDS: CARDIZEM PO SCH ×4 (02:16→20:38)
[2019-09-20] MEDS: LOPRESSOR IV SCH ×4 (02:31→19:37)
[2019-09-20] MEDS: XOPENEX NEB INH SCH ×6 (03:40→22:44)
[2019-09-20] MEDS: DILAUDID IV PRN ×5 (03:49→22:38)
[2019-09-20 04:42] LABS: ALLEN TEST YES; BE 4.9 mmoll (-3.0-3.0); BLOOD TYPE ARTERIAL; HCO3-(ACT) 28.6 mmoll (20.0-26.0); METHB 0.9 % (0.0-1.5); O2(CT) 15.6 mL/dL (15.0-23.0); O2HB 91.1 % (95.0-99.0); PCO2(98.6) 41 mmHg (35-45); PO2(98.6) 58 mmHg (60-100); SAMPLE BLOOD; SAO2 93.5 % (95.0-100.0); THB 12.2 g/dL (11.5-17.4); pH(98.6) 7.46 (7.35-7.45)
[2019-09-20 04:44] LABS: MODALITY HIGH FLOW NASAL CAN
[2019-09-20] MEDS: PROTONIX IV SCH (06:01)
[2019-09-20] MEDS: NORCO-5 PO PRN ×2 (07:16→16:35)
[2019-09-20 08:05] LABS: AGAP 13; BUN 20 mg/dL (8-22); CALCIUM 8.6 mg/dL (8.8-10.2); CHLORIDE 99 mmol/L (98-107); COSMO 275; CREATININE 0.7 mg/dL (0.7-1.2); GLUCOSE 101 mg/dL (70-104); POTASSIUM 4.7 mmol/L (3.5-5.1); SODIUM 136 mmol/L (136-145); TCO2 24 mmol/L (25-35)
[2019-09-20] MEDS: MUCOMYST 20% INH SCH ×2 (08:35→19:05)
[2019-09-20] MEDS: COLACE PO SCH ×2 (08:39→20:38)
[2019-09-20] MEDS: TUMS PO SCH ×3 (08:39→18:07)
[2019-09-20] MEDS: MIRALAX PO SCH ×2 (08:39→20:38)
[2019-09-20] MEDS: DULCOLAX PR SCH ×2 (08:39→21:53)
[2019-09-20] MEDS: LEVAQUIN 750 MG/D5W 750 MG/150 ML IVPB IV SCH (10:47)
[2019-09-20] MEDS: LOVENOX SUBQ SCH ×2 (10:47→22:39)
--- NOTE | 2019-09-20 13:13 | GENERAL SURGERY PROGRESS NOTE ---
DATE: 09/20/2019 SUBJECTIVE: The patient seems to be doing okay. He says he is breathing a little better. Nursing staff reports no major issues. OBJECTIVE: Vital Signs: The patient is currently afebrile. His vital signs are stable. His O2 saturation is 93. General: No acute distress. Cardiovascular: Regular rate and rhythm. Lungs: Chest tube in place. No air leak to suction. Placed it to water seal. It has about 400 out of sanguinous fluid. Abdomen: Soft, nontender. ASSESSMENT AND PLAN: A 49-year-old gentleman, postoperative day #1 from thoracotomy and decortication. Postoperative state. At this time, will keep chest tube to water seal, and get a chest x-ray in the morning. Will continue current treatment. cc: Moody James MD
--- NOTE | 2019-09-20 14:17 | INFECTIOUS DISEASE PROGRESS NO ---
DATE: 09/20/2019 PRESENT ILLNESS: The patient has pneumonia with a loculated pleural effusion. The patient is status post decortication and drainage of the pleural fluid performed by Dr. James yesterday. MEDICATIONS: This is the 4th day of treatment with Levaquin. PHYSICAL EXAMINATION: Vital Signs: Temperature is 99 degrees, pulse 65, respirations 18, blood pressure is 112/65. General: This is a somewhat ill-appearing, middle-aged male. He is in no acute distress. Head/eyes/ears/nose/throat: He can hear my spoken words and see near objects. I did not see any white coating of his tongue. Neck: No pain with movement. Thorax: The patient has a right-sided chest tube in place. Lungs: The left lung is clear. The right lung has decreased breath sounds. Cardiovascular: Heart rate is regular. Abdomen: Soft and nontender. Neurologic: Patient is alert. He converses in a coherent fashion. He can move his extremities. There is no tremor. LAB AND X-RAY: The patient's blood gases showed a pH of 7.46, a PO2 of 58, and a pCO2 of 41, creatinine 0.7. GFR is greater than 60. The CBC for today is pending. A culture from the right lung and Gram stain both are negative thus far. A chest x-ray shows a decrease in the patient's pleural fluid. ASSESSMENT AND PLAN: For now I am going to continue with Levaquin as a single agent pending the results of cultures. COMORBIDITIES: Patient does not have any comorbidities that I could determine. cc: Mekhi Carroll MD
[2019-09-20] MEDS: HALDOL IV PRN (14:44)
--- NOTE | 2019-09-20 15:19 | CARDIOLOGY PROGRESS NOTE ---
DATE: 09/19/2019 CHIEF COMPLAINT: Irregular heartbeat, shortness of breath. SUBJECTIVE: Mr. Chester has converted to sinus rhythm. He seemed more comfortable now. OBJECTIVE: Blood pressure is 110/58, temperature 98.3 degrees, pulse is 66, respirations 16. He is awake. He is not as toxic as he was a few days ago. HEENT: Unremarkable. Chest: Diminished breath sounds are present in the right lung. Heart sounds are regular rate and rhythm. I do not hear gallop or murmur. Abdomen: Nontender. Extremities show no edema. Neurologic: Nonfocal. Moves all extremities .Laboratory Data: White count has dropped to 19,500, hemoglobin 12.5, hematocrit 39.2, platelet count is 230,000. Sodium 135, potassium 4.6, BUN 20, creatinine 0.8. IMPRESSION: 1. Patient who presented with pneumonia and pleural effusion, atelectasis, right lung. 2. Paroxysmal atrial fibrillation. 3. Systolic heart failure, left ventricular dysfunction, probably component of stress-related cardiomyopathy compounded by the paroxysmal atrial fibrillation. 4. Loculated pleural effusion. RECOMMENDATIONS: At this time, I will continue with current combination of medications including metoprolol and diltiazem. He is scheduled to go to the operating room today for decortication. We will see how he does over the course of the next few days. His prognosis is still guarded. Thank you for the privilege of participating in the care of this patient. cc: Bal Weems MD [facility]
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
[2019-09-21] MEDS: CARDIZEM PO SCH ×4 (02:20→21:07)
[2019-09-21] MEDS: LOPRESSOR IV SCH ×4 (02:25→19:44)
[2019-09-21] MEDS: XOPENEX NEB INH SCH ×6 (03:18→23:39)
--- NOTE | 2019-09-21 03:21 | PROGRESS NOTE ---
DATE: 09/20/2019 SUBJECTIVE: The patient is resting comfortably in bed. He states that his breathing has improved since he had the VATS procedure done yesterday. He does have noticeable swelling in his right lower extremity. OBJECTIVE: Vital Signs: Temperature 98.4 degrees, blood pressure 132/77, heart rate 73, respirations 22, O2 saturation 94% on high-flow oxygen. Intake 740 mL. Output 2.7 L. General: This is an elderly male lying in bed, in no acute distress. Heart: S1, S2 normal. Regular rate and rhythm. Lungs: Diminished breath sounds in the right lung field. Abdomen: Positive bowel sounds. Soft, nontender, nondistended. Extremities: 2+ edema in the right lower extremity. No edema in the left extremity. Neurologic: The patient is alert and oriented x4. LABS: Sodium 136, potassium 4.7, chloride 99, CO2 of 24, BUN 20, creatinine 0.7. Glucose 101. ASSESSMENT AND PLAN: 1. Acute hypoxemic respiratory failure. Multifactorial. The patient has pneumonia and recently underwent a video-assisted thoracoscopy for a loculated right pleural effusion. 2. Severe bilateral lobe pneumonia. Continue with antibiotic therapy as directed by Dr. Carroll. 3. Status post video-assisted thoracoscopy (VATS) secondary to loculated right pleural effusion. Management as per the general surgeon. 4. Septic shock. Resolved. 5. Right lower extremity deep vein thrombosis. The patient is on full-dose Lovenox. Dr. Okeefe is following. 6. Paroxysmal fibrillation. The patient is on Cardizem. 7. Constipation. Improved. The patient is on laxative therapy. cc: Lina Head MD [facility]
[2019-09-21 05:17] LABS: ALLEN TEST YES; BE 4.4 mmoll (-3.0-3.0); BLOOD TYPE ARTERIAL; HCO3-(ACT) 28.3 mmoll (20.0-26.0); METHB 0.8 % (0.0-1.5); O2(CT) 16.1 mL/dL (15.0-23.0); O2HB 93.1 % (95.0-99.0); PCO2(98.6) 39 mmHg (35-45); PO2(98.6) 63 mmHg (60-100); SAMPLE BLOOD; SAO2 95.5 % (95.0-100.0); THB 12.3 g/dL (11.5-17.4); pH(98.6) 7.47 (7.35-7.45)
[2019-09-21 05:19] LABS: MODALITY HIGH FLOW NASAL CAN
[2019-09-21] MEDS: DILAUDID IV PRN ×2 (05:38→13:51)
[2019-09-21 06:06] LABS: BASO# 0.04 X1000 (0.0-0.2); BASO% 0.2 % (0.0-0.8); EOS% 1.2 % (0.0-10.0); HEMATOCRIT 37.2 % (42.0-52.0); HEMOGLOBIN 11.9 g/dL (14.0-18.0); IMM GRAN# 0.32 X1000 (0.0-0.04); IMM GRAN% 1.9 % (0.0-0.5); LYMPH# 1.38 X1000 (1.2-3.4); LYMPH% 8.2 % (20.5-51.1); MCH 28.7 PG (27-31); MCV 89.6 FL (81-99); MONO# 1.21 X1000 (0.11-0.59); MONO% 7.2 % (1.7-9.3); MPV 10.3 FL (7.4-10.4); NEUT# 13.58 X1000 (1.4-6.5); NEUT% 81.3 % (42.2-75.2); PLT 276 X1000 (130-400); RBC 4.15 XMIL (4.7-6.1); RDW 15.3 % (11.5-14.5); WBC 16.73 X1000 (4.8-10.8)
[2019-09-21 06:15] LABS: IRON SATURATION 17 %; TIBC 149 ug/dL; TOTAL IRON 25 ug/dL (53-167); UNBOUND IRON 124 ug/dL (112-346)
[2019-09-21] MEDS: NORCO-5 PO PRN ×2 (06:19→21:45)
[2019-09-21] MEDS: PROTONIX IV SCH (06:21)
[2019-09-21 06:23] LABS: AGAP 11; BUN 17 mg/dL (8-22); CALCIUM 8.3 mg/dL (8.8-10.2); CHLORIDE 99 mmol/L (98-107); COSMO 270; CREATININE 0.7 mg/dL (0.7-1.2); ESTIMATED GFR > 60; GLUCOSE 110 mg/dL (70-104); MAGNESIUM 1.8 mg/dL (1.5-2.7); POTASSIUM 4.4 mmol/L (3.5-5.1); SODIUM 134 mmol/L (136-145); TCO2 24 mmol/L (25-35)
[2019-09-21 07:01] LABS: FERRITIN 946 ng/mL (30-400)
--- NOTE | 2019-09-21 07:05 | Extremity Venous Study ---
PROCEDURE NAME: Venous U/S Right Leg - 09/19/2019 REFERRING PHYSICIAN: Lisha. READING PHYSICIAN: Mohit Muir MD. TESTING AND REGULATING CHIEF: Jhon. INDICATION: Right leg swelling. FINDINGS: The deep and superficial veins of the right lower extremity were imaged throughout their course. There is extensive acute thrombosis of the right common femoral, superficial femoral, deep femoral, and proximal greater saphenous veins. There appears to be some preserved flow with monophasic waveforms throughout. INTERPRETATION: Acute deep venous thrombosis of the right common femoral, superficial femoral, and deep femoral veins, and acute superficial venous thrombosis of the proximal right greater saphenous vein. cc: MD Tyrone Gutierrez CRNP
--- NOTE | 2019-09-21 07:32 | Diag Imaging Result Doc PS360 ---
EXAM: CHEST-PORTABLE INDICATION: Chest tube TECHNIQUE: One view COMPARISON: 09/19/2019 FINDINGS: The right chest tube is in stable position. The moderate to large size right pleural effusion is approximately stable. There is stable right basilar atelectasis. Atelectasis and/or infiltrate at the left mid to lower lung zone is also unchanged. No new consolidation is identified. Cardiac silhouette is stable. IMPRESSION: Stable chest. Electronically signed by Tamir Harrison 09/21/2019 7:29 AM
[2019-09-21] MEDS: MUCOMYST 20% INH SCH ×2 (08:09→19:50)
[2019-09-21] MEDS: MIRALAX PO SCH ×2 (10:43→21:07)
[2019-09-21] MEDS: LEVAQUIN 750 MG/D5W 750 MG/150 ML IVPB IV SCH (10:43)
[2019-09-21] MEDS: TUMS PO SCH ×3 (10:44→16:49)
[2019-09-21] MEDS: COLACE PO SCH ×2 (10:44→21:07)
[2019-09-21] MEDS: DULCOLAX PR SCH ×2 (10:44→21:11)
[2019-09-21] MEDS: LOVENOX SUBQ SCH ×2 (10:44→22:09)
--- NOTE | 2019-09-21 12:21 | HEMO/ONC PROGRESS NOTE ---
DATE: 09/21/2019 SUBJECTIVE: The patient is sitting up, awake in bed this morning. He states he feels okay. He is hoping that he can be downgraded from the ICU today. The patient continues to have a significant cough and is utilizing high-flow nasal cannula oxygen at this time. The patient had an uneventful evening. He is improving. He has no complaints today. OBJECTIVE: Vitals: Temperature 98.3 degrees, pulse rate 73, heart rate 27, blood pressure 110/67, O2 saturation 94% on high-flow nasal cannula at 55%. He is in 0/10 pain. General: Ill- appearing, obese male in no acute distress. Cardiovascular: Normal S1, S2. Heart rate and rhythm regular. Respiratory: Diminished breath sounds on the right. The patient is on high-flow O2. Clear breath sounds on the left. Chest tube in place on the right. Abdomen: Positive bowel sounds. Soft, nontender, nondistended. Neurological: Awake, alert, and oriented. Extremities: + 2 edema on the right lower extremity. Right foot is very cool to the touch. No edema noted to his left leg. LABORATORY: WBC 16.73, hemoglobin 11.9, hematocrit 37.2, platelet count 276,000. Sodium 134, potassium 4.4. Magnesium 1.8. Iron 25, iron percent sat 17, ferritin 946, which is most likely acute phase reactant. Vitamin B12 914. Folate 5.4. RADIOLOGY: Chest x-ray shows right chest tube in stable position. Moderate to large size right pleural effusion remains stable. Stable right basilar atelectasis. Atelectasis and/or infiltrate to the left mid to lower lung. ASSESSMENT: 1. Acute hypoxic respiratory failure. 2. Severe bilateral lobe pneumonia. 3. Status post VATS for loculated right pleural effusion. 4. Septic shock. 5. Right lower extremity deep venous thrombosis. 6. Paroxysmal atrial fibrillation. 7. Acute kidney injury due to acute tubular necrosis, now resolved. PLAN: The patient is being moved out of the ICU today to the PVC unit. He is happy about this status as he gets a little bit more freedom to get up and move about. The patient's iron profile did come back low, however, that is of low priority at this time. I will replace his folate while he is in the hospital. We will consider an iron infusion as an outpatient. The patient states he is feeling well. Continue medical management. Continue Lovenox twice a day at this time. Continue all medical management per Surgery, Infectious Disease, Cardiology and Pulmonology. We are continuing to follow closely. Dictated by ARINA Maurer for Sherif Okeefe MD cc: Sherif Okeefe MD [facility]
--- NOTE | 2019-09-21 13:07 | GENERAL SURGERY PROGRESS NOTE ---
DATE: 09/21/2019 SUBJECTIVE: Patient seems to be doing okay. He says he is breathing okay. OBJECTIVE: Vital Signs: Patient is currently afebrile. His vital signs are stable. General: No acute distress. Cardiovascular: Regular rate and rhythm. Lungs: Overall improving. IMAGING STUDIES: Chest x-ray looks slightly improved to me. LABORATORY: Reviewed, white blood cell count is trending down. ASSESSMENT AND PLAN: A 49-year-old gentleman postoperative day #2, thoracotomy and decortication: Postoperative state. At this time, we will keep the chest tube in place and we will monitor his chest x-rays. We will continue current treatment. cc: Moody James MD
--- NOTE | 2019-09-21 15:44 | INFECTIOUS DISEASE PROGRESS NO ---
DATE: 09/21/2019 PRESENT ILLNESS: Mr. Chester is status post thoracotomy with decortication and drainage of pleural fluid on the right. He is being treated for pneumonia. MEDICATIONS: Today is day 5 of Levaquin 750 mg IV daily. PHYSICAL EXAMINATION: Vital Signs: Temperature is 97.3 degrees, pulse rate 73, respiratory rate 27. Blood pressure 77/43, O2 saturation is 94% on 55% high-flow nasal cannula. General: This is an acutely ill-appearing, middle-aged male. He is lying in bed, currently in no acute distress. HEENT: Atraumatic, normocephalic. Oral mucous membranes are pink and moist. Conjunctivae are pink. Neck: Supple. Trachea is midline. Cardiovascular: Heart rate and rhythm are regular. Normal sinus rhythm on the monitor. Respiratory: Lung sounds are clear to the left side and diminished in the bases and on the right side. He is tachypneic. There is a chest tube in place to the right axillary region with an incision. Dressings dry and intact. There is serosanguineous drainage noted in the chest tube tubing. Integumentary: Skin is warm and dry. He has a central line to the right groin, with site free of edema, erythema or drainage. Abdomen: Soft. Obese. Nontender to palpation. Bowel sounds are active. Neurologic: He is awake, alert, oriented, and able to move around in the bed with assistance. LABORATORY AND X-RAY: Today, his white count is 16.73 hemoglobin 11.9, platelet count 276,000. PH 7.47, pCO2 39, PO2 63 on 55% high flow nasal cannula. Creatinine 0.7, estimated GFR is greater than 60. The right lung culture from surgery shows a Gram stain with no bacteria and no growth on the preliminary report. There are also no anaerobes on the preliminary report. Chest x-ray today is stable with right basilar atelectasis, and atelectasis and/or infiltrate to the left mid to lower lung zones that are unchanged. There is no new consolidation. ASSESSMENT AND PLAN: Mr. Chester is being treated for pneumonia and is status post decortication and drainage of a loculated pleural effusion with a chest tube insertion on the right. Today, he states he is feeling better. There has been some decrease in his white blood cell count since last check. For now, we will continue the Levaquin IV as ordered. These plans have been discussed with and recommended by Dr. Carroll. COMORBIDITIES: History of gastric bypass with oral malabsorption syndrome. Dictated by ARINA Long for Mekhi Carroll MD cc: Mekhi Carroll MD [facility]
--- NOTE | 2019-09-21 19:33 | PROGRESS NOTE ---
DATE: 09/21/2019 SUBJECTIVE: The patient is resting comfortably in bed. He states that he feels a lot better today. No acute events noted overnight. He is eating well. He has less swelling in his right leg. OBJECTIVE: Vital Signs: Temperature 98.6 degrees, blood pressure 124/74, heart rate 73, respirations 28, O2 saturation is 94% on high-flow oxygen. Intake 770, output 2.2 L. General: This is an elderly male lying in bed in no acute distress. Heart: S1, S2 normal. Regular rate and rhythm. Lungs: Equal air entry bilaterally. No wheezing. No rales. No rhonchi. Abdomen: Positive bowel sounds. Soft, nontender, nondistended. Extremities: Edema 1+ in the right lower extremity. No edema in the left extremity. Neurologic: The patient is alert and oriented x4. LABORATORY DATA: White blood cell count 16, hemoglobin 11, hematocrit 37, platelets 276,000. Sodium 134, potassium 4.4, chloride 99, CO2 is 24, BUN 17, creatinine 0.7, glucose 110. Folate 5.4. DIAGNOSTIC DATA: Chest x-ray shows moderate to large right-sided pleural effusion that is stable. ASSESSMENT AND PLAN: 1. Acute hypoxemic respiratory failure. Multifactorial. Continue to treat the underlying pneumonia. The patient currently has a chest tube in place status post video-assisted thoracoscopic surgery for loculated right pleural effusion. 2. Severe bilateral lobe pneumonia. Continue on the current antibiotic regimen as directed by Dr. Carroll. 3. Status post video-assisted thoracoscopic surgery secondary to a loculated right pleural effusion. Continue with chest tube management as directed by the general surgeon. 4. Right lower extremity deep vein thrombosis. Continue on full-dose Lovenox. 5. Septic shock. Resolved. 6. Paroxysmal atrial fibrillation. The patient is rate-controlled. Continue on Cardizem. 7. Constipation. Continue with laxative therapy. 8. Folate deficiency. The patient is on folic acid replacement. 9. Disposition: The patient is stable for transfer to [facility]. cc: Lina Head MD [facility]
[2019-09-22] MEDS: LOPRESSOR IV SCH ×4 (02:34→20:47)
[2019-09-22] MEDS: CARDIZEM PO SCH ×4 (02:34→20:48)
[2019-09-22] MEDS: XOPENEX NEB INH SCH ×6 (03:33→22:48)
[2019-09-22 04:18] LABS: ALLEN TEST YES; BE 5.7 mmoll (-3.0-3.0); BLOOD TYPE ARTERIAL; HCO3-(ACT) 29.3 mmoll (20.0-26.0); METHB 1.2 % (0.0-1.5); O2(CT) 16.2 mL/dL (15.0-23.0); O2HB 93.7 % (95.0-99.0); PCO2(98.6) 35 mmHg (35-45); PO2(98.6) 66 mmHg (60-100); SAMPLE BLOOD; SAO2 96.6 % (95.0-100.0); THB 12.3 g/dL (11.5-17.4); pH(98.6) 7.52 (7.35-7.45)
[2019-09-22 04:19] LABS: MODALITY HIGH FLOW NASAL CAN
[2019-09-22 05:56] LABS: BASO# 0.04 X1000 (0.0-0.2); BASO% 0.3 % (0.0-0.8); EOS# 0.19 X1000 (0.0-0.7); EOS% 1.4 % (0.0-10.0); HEMATOCRIT 38.5 % (42.0-52.0); HEMOGLOBIN 12.1 g/dL (14.0-18.0); IMM GRAN# 0.21 X1000 (0.0-0.04); IMM GRAN% 1.6 % (0.0-0.5); LYMPH# 1.28 X1000 (1.2-3.4); LYMPH% 9.5 % (20.5-51.1); MCH 28.4 PG (27-31); MCHC 31.4 g/dL (33-37); MCV 90.4 FL (81-99); MONO# 1.04 X1000 (0.11-0.59); MONO% 7.7 % (1.7-9.3); MPV 9.2 FL (7.4-10.4); NEUT# 10.73 X1000 (1.4-6.5); NEUT% 79.5 % (42.2-75.2); PLT 312 X1000 (130-400); RBC 4.26 XMIL (4.7-6.1); RDW 15.2 % (11.5-14.5); WBC 13.49 X1000 (4.8-10.8)
[2019-09-22 06:11] LABS: AGAP 9; BUN 14 mg/dL (8-22); CALCIUM 8.2 mg/dL (8.8-10.2); CHLORIDE 99 mmol/L (98-107); COSMO 271; CREATININE 0.7 mg/dL (0.7-1.2); ESTIMATED GFR > 60; GLUCOSE 103 mg/dL (70-104); POTASSIUM 4.5 mmol/L (3.5-5.1); SODIUM 135 mmol/L (136-145); TCO2 27 mmol/L (25-35)
[2019-09-22] MEDS ORDERED: MAGNESIUM SULFATE 2 GM/S.W.I. 2 GM/50 ML IVPB IV ONE (06:57)
[2019-09-22] MEDS: MUCOMYST 20% INH SCH ×2 (07:45→20:09)
[2019-09-22] MEDS: NORCO-5 PO PRN ×2 (08:26→14:28)
[2019-09-22] MEDS: FOLIC ACID PO SCH (08:27)
[2019-09-22] MEDS: COLACE PO SCH ×2 (08:27→20:48)
[2019-09-22] MEDS: DULCOLAX PR SCH ×2 (08:27→20:48)
[2019-09-22] MEDS: PROTONIX PO SCH (08:27)
[2019-09-22] MEDS: TUMS PO SCH ×3 (08:27→17:05)
[2019-09-22] MEDS: MIRALAX PO SCH ×2 (08:28→20:47)
[2019-09-22] MEDS: DILAUDID IV PRN ×2 (11:14→20:53)
[2019-09-22] MEDS: LEVAQUIN 750 MG/D5W 750 MG/150 ML IVPB IV SCH (11:14)
[2019-09-22] MEDS: LOVENOX SUBQ SCH ×2 (11:14→23:08)
--- NOTE | 2019-09-22 11:41 | Diag Imaging Result Doc PS360 ---
EXAM: CT THORAX W/O CONTRAST INDICATION: SOB TECHNIQUE: This exam was performed using automated exposure control, adjustment of mA or kV according to patient size, and/or use of iterative reconstruction technique. COMPARISON: 09/14/2019 FINDINGS: There has been interval placement of a right thoracostomy tube. The large right pleural effusion persists and has decreased only slightly since the previous study. Note that the chest tube does appear to be kinked over a rib as it enters the thoracic cavity. Prominent atelectasis in the right is essentially stable. The airspace consolidations on the left seen previously are again identified and they are more extensive involving a greater portion of the left upper lobe. A small left effusion has developed. The mediastinum is unchanged as compared to the recent prior study. Limited views of the upper abdomen are stable. IMPRESSION: 1.Interval placement of right thoracostomy tube with only slight decrease in size of the fairly large right pleural effusion. Note that the chest tube appears to be kinked as it enters the thoracic cavity. 2.Airspace consolidation in the left lung suggesting pneumonia that is more extensive than the previous study. Electronically signed by Tamir Harrison 09/22/2019 11:39 AM
--- NOTE | 2019-09-22 12:46 | GENERAL SURGERY PROGRESS NOTE ---
DATE: 09/22/2019 SUBJECTIVE: The patient seems to be doing better. Seems to be breathing okay. OBJECTIVE: Vital Signs: The patient is currently afebrile. His vital signs are stable. General: No acute distress. Cardiovascular: Regular rate and rhythm. Lungs: Chest tube in place without an air leak. Some serous drainage. Abdomen: Soft, nontender. ASSESSMENT AND PLAN: A 49-year-old gentleman, currently postoperative day #3 from thoracotomy and decortication on the right. Postoperative state. At this time, will keep chest tube in place. Will likely get a chest x-ray tomorrow. Will continue to monitor it. There may be a possibility that his chest tube could come out over the weekend, but will continue to monitor. cc: Moody James MD
--- NOTE | 2019-09-22 19:55 | PROGRESS NOTE ---
DATE: 09/22/2019 SUBJECTIVE: The patient is resting comfortably in bed. He has no complaints. No acute events noted overnight. OBJECTIVE: Vital Signs: Temperature 98.8 degrees, blood pressure 120/77, heart rate 74, respirations 22, O2 saturation 94% on high-flow oxygen, intake 870, output 2 L. General: This is an elderly male lying in bed in no acute distress. Heart: S1, S2 normal. Regular rate and rhythm. Lungs: Diminished breath sounds in the right lung field. Abdomen: Positive bowel sounds. Soft, nontender, nondistended. Extremities: No edema, no cyanosis. Neurologic: The patient is alert and oriented x4. LABORATORY DATA: White blood cell count 13, hemoglobin 12, hematocrit 38, platelets 312,000. Sodium 135, potassium 4.5, chloride 99, CO2 27, BUN 14, creatinine 0.7, glucose 103. IMAGING PROCEDURE: CT of the chest reveals extensive left lung pneumonia as well as chest tube that appears to be kinked in the right thoracic cavity. ASSESSMENT AND PLAN: 1. Acute hypoxemic respiratory failure. Multifactorial. Continue to treat the underlying medical conditions. 2. Severe bilateral lobe pneumonia. Continue with antibiotics as directed by Dr. Carroll. 3. Status post VATS secondary to an empyema. Continue with chest tube management as directed by the general surgeon. 4. Right lower extremity deep vein thrombosis. Continue on full-dose Lovenox. 5. Paroxysmal atrial fibrillation. The patient is rate controlled. Continue on Cardizem and full-dose Lovenox. 6. Septic shock. Resolved. 7. Folate deficiency. Continue with folic acid replacement. 8. Continue with physical therapy. cc: Lina Head MD
[2019-09-22] MEDS: NS NEB INH SCH (22:49)
[2019-09-23] MEDS: CARDIZEM PO SCH ×4 (02:30→21:33)
[2019-09-23] MEDS: LOPRESSOR IV SCH ×4 (02:30→21:33)
[2019-09-23] MEDS: XOPENEX NEB INH SCH ×6 (03:53→22:55)
[2019-09-23] MEDS: NS NEB INH SCH (03:53)
[2019-09-23 04:49] LABS: ALLEN TEST YES; BE 3.3 mmoll (-3.0-3.0); BLOOD TYPE ARTERIAL; HCO3-(ACT) 27.4 mmoll (20.0-26.0); O2HB 92.4 % (95.0-99.0); PCO2(98.6) 36 mmHg (35-45); PO2(98.6) 61 mmHg (60-100); SAMPLE BLOOD; SAO2 95.3 % (95.0-100.0); THB 11.5 g/dL (11.5-17.4); pH(98.6) 7.48 (7.35-7.45)
[2019-09-23 04:50] LABS: MODALITY CANNULA
[2019-09-23 06:45] LABS: BASO# 0.03 X1000 (0.0-0.2); BASO% 0.2 % (0.0-0.8); EOS# 0.12 X1000 (0.0-0.7); HEMATOCRIT 37.1 % (42.0-52.0); IMM GRAN# 0.15 X1000 (0.0-0.04); IMM GRAN% 1.2 % (0.0-0.5); LYMPH# 1.33 X1000 (1.2-3.4); LYMPH% 10.9 % (20.5-51.1); MCHC 32.3 g/dL (33-37); MCV 89.6 FL (81-99); MONO# 0.96 X1000 (0.11-0.59); MONO% 7.9 % (1.7-9.3); MPV 9.5 FL (7.4-10.4); NEUT% 78.8 % (42.2-75.2); PLT 332 X1000 (130-400); RBC 4.14 XMIL (4.7-6.1); RDW 15.1 % (11.5-14.5); WBC 12.19 X1000 (4.8-10.8)
[2019-09-23 07:07] LABS: AGAP 13; BUN 13 mg/dL (8-22); CALCIUM 8.6 mg/dL (8.8-10.2); CHLORIDE 100 mmol/L (98-107); COSMO 274; CREATININE 0.7 mg/dL (0.7-1.2); ESTIMATED GFR > 60; GLUCOSE 101 mg/dL (70-104); POTASSIUM 4.6 mmol/L (3.5-5.1); SODIUM 137 mmol/L (136-145); TCO2 24 mmol/L (25-35)
--- NOTE | 2019-09-23 07:34 | Diag Imaging Result Doc PS360 ---
EXAM: CHEST-PORTABLE INDICATION: follow up chest tube and decortication TECHNIQUE: One view COMPARISON: 09/21/2019 FINDINGS: The right chest tube is in stable position. The moderate-sized right pleural effusion appears slightly smaller than previous study. There is still adjacent atelectasis and/or infiltrate. Atelectasis or infiltrate at the left lower lung zone is also stable. No new consolidation is identified. Cardiac silhouette is stable. IMPRESSION: Likely slight decrease in size of right pleural effusion. Electronically signed by Tamir Harrison 09/23/2019 7:31 AM
[2019-09-23] MEDS: NORCO-5 PO PRN (07:36)
[2019-09-23] MEDS: MUCOMYST 20% INH SCH ×2 (07:54→19:32)
[2019-09-23] MEDS: TUMS PO SCH ×3 (08:51→16:46)
[2019-09-23] MEDS: PROTONIX PO SCH (08:52)
[2019-09-23] MEDS: MIRALAX PO SCH ×2 (08:52→21:34)
[2019-09-23] MEDS: FOLIC ACID PO SCH (08:52)
[2019-09-23] MEDS: DULCOLAX PR SCH ×2 (08:52→21:35)
[2019-09-23] MEDS: COLACE PO SCH ×2 (08:52→21:33)
--- NOTE | 2019-09-23 08:52 | HEMO/ONC PROGRESS NOTE ---
DATE: 09/23/2019 SUBJECTIVE: The patient appears comfortable this morning. He has no complaints. He states he had a good night. There were no acute overnight events. He continues to have a chest tube in place that is causing him discomfort. He is happy to be out of the ICU. OBJECTIVE: Vital Signs: Temperature 97.8 degrees, pulse rate 72, respiratory rate 27, blood pressure 110/75, O2 saturation 95% on nasal cannula at 5 L. He complains of 5/10 back pain. PHYSICAL EXAMINATION: General: He is in no acute distress. HEENT: Sclerae is anicteric. PERRLA. Oral mucosa is normal. Cardiovascular: Normal S1, S2. Heart rate and rhythm is regular. Respiratory: Right lung sounds are diminished. Left lung sounds are clear. Gastrointestinal: Abdomen is protuberant, soft, nontender. Bowel sounds are present. Extremities: Right lower extremity edema noted. Neurological: Awake, alert, and oriented x4. LABORATORY DATA: WBCs 12.19, hemoglobin 12.0, hematocrit 37.1, platelet count 332,000. RADIOLOGY: Chest x-ray showed a slight decrease in size of the right pleural effusion. ASSESSMENT AND PLAN: 1. Acute hypoxic respiratory failure. This is a multifactorial cause. Continue to treat underlying medical conditions. The patient seems to be improving well. 2. Severe bilateral lobe pneumonia. Continue with recommendations per Dr. Carroll's assessments. Status post VATS for loculated pleural effusion. The patient has a chest tube in place. Continue to monitor closely. Continue to follow orders per Surgery. 3. Septic shock. Resolved. 4. Right lower extremity DVT. The patient is on Lovenox b.i.d. 5. Paroxysmal atrial fibrillation. The patient is controlled at this time. He is also on Lovenox and Cardizem. Continue recommendations per Cardiology. 6. Folic acid deficiency. Patient is on daily folic acid. He also has an iron deficiency. We will take care of an iron infusion as an outpatient. We will continue to monitor. Please call us as needed over the weekend. Dictated by ARINA Maurer for Sherif Okeefe MD cc: Sherif Okeefe MD [facility]
[2019-09-23] MEDS: LEVAQUIN 750 MG/D5W 750 MG/150 ML IVPB IV SCH (11:03)
[2019-09-23] MEDS: LOVENOX SUBQ SCH ×2 (11:03→22:39)
[2019-09-23] MEDS ORDERED: VANCOMYCIN IV PER PHARMACY MISC SCH (11:15)
[2019-09-23] MEDS ORDERED: MAXIPIME 2 GM in NS 100 ML IV SCH (12:00)
[2019-09-23] MEDS: MAXIPIME 2 GM/NS 2 GM/100 ML IVPB IV SCH ×2 (12:49→21:36)
[2019-09-23] MEDS: DILAUDID IV PRN ×2 (13:56→21:26)
[2019-09-23] MEDS ORDERED: CALMOSEPTINE OINTMENT TOP PRN (14:05)
[2019-09-23] MEDS: VANCOMYCIN 1.5 GM in NS 250 ML IV SCH (14:06)
--- NOTE | 2019-09-23 16:00 | GENERAL SURGERY PROGRESS NOTE ---
DATE: 09/23/2019 SUBJECTIVE: The patient seems to be doing okay. His breathing seems to be okay. Chest CT scan yesterday did show some persistence in the fluid. OBJECTIVE: Vital Signs: The patient is currently afebrile. His vital signs are stable. General: No acute distress. Cardiovascular: Regular rate and rhythm. Lungs: Chest tube on the right without an air leak. Abdomen: Soft, nontender. ASSESSMENT AND PLAN: A 49-year-old gentleman currently postoperative day number 4 from thoracotomy decortication on the right. Postoperative state: At this time, we will likely place a chest tube to suction again, see if we get more drainage out. If not, we may consider removing it over the weekend. cc: Moody James MD
--- NOTE | 2019-09-23 21:33 | INFECTIOUS DISEASE PROGRESS NO ---
DATE: 09/23/2019 PRESENT ILLNESS: Mr. Chester is status post thoracotomy and decortication with pleural fluid drainage on the right. CT of his chest done yesterday showed some increase in the pneumonia on the left. MEDICATIONS: Today is day 7 of Levaquin 750 mg IV daily. PHYSICAL EXAMINATION: Vital Signs: Temperature is 98.2 degrees, pulse rate 81, respiratory rate 25, blood pressure 126/82, O2 saturation is 96% on 5 L nasal cannula. General: This is an acutely ill-appearing, middle-aged gentleman. He is lying in bed, currently in no acute distress. HEENT: Atraumatic, normocephalic. Oral mucous membranes are pink and moist. Conjunctivae are pink. Neck: Supple. Trachea is midline. Respiratory: Lung sounds are diminished bilaterally with some mild rales noted on the left side. No work of breathing is noted. He is tachypneic. There is a chest tube to the right axillary area with an incision. Dressings are intact with surgical drainage. There is a bedside atrium in place. Integumentary: Skin is warm and dry with a central line noted to the right groin. That site is without edema or drainage. Cardiovascular: Heart rate and rhythm are regular. Normal sinus rhythm on the monitor. Abdomen: Soft, obese, nontender. Bowel sounds are active. Neurologic: He is awake, alert, oriented, able to get up with assistance. LABORATORY AND X-RAY: Today, his white count is 12.19, hemoglobin 12, platelet count 332,000. PH 7.48, pCO2 36, pO2 61 on 5 L nasal cannula. His creatinine is 0.7. Estimated GFR is greater than 60. Right lung cultures have shown no growth. Chest x-ray today shows a decreased right pleural effusion with atelectasis or infiltrate to the left lower lung zone. Chest CT done yesterday shows consolidation in the left lung, suggesting pneumonia that is more extensive than the previous study. ASSESSMENT AND PLAN: Mr. Chester is being treated for pneumonia with Levaquin. His white count continues to come down. Unfortunately, his CT shows some increase in the pneumonia on the left side. We will add intravenous vancomycin per pharmacy dosing and cefepime 2 g intravenously every 8 hours. These plans have been discussed with and recommended by Dr. Carroll. COMORBIDITIES: For Mr. Chester, include gastric bypass with oral malabsorption syndrome. Dictated by ARINA Long for Mekhi Carroll MD cc: Mekhi Carroll MD
--- NOTE | 2019-09-23 21:33 | PROGRESS NOTE ---
DATE: 09/23/2019 SUBJECTIVE: The patient is resting comfortably in bed. He is currently on nasal cannula. He has no complaints. OBJECTIVE: Vital Signs: Temperature 98.2 degrees, blood pressure 119/71, heart rate 64, respirations 27, O2 saturation 98% on 5 L nasal cannula. Intake 2 L, output 2.5 L. General: This is an elderly male sitting in bed in no acute distress. Heart: S1, S2 normal. Regular rate and rhythm. Lungs: Diminished breath sounds in the right lung field. Abdomen: Positive bowel sounds. Soft, nontender, nondistended. Extremities: No edema. No cyanosis. Neurologic: The patient is alert and oriented x4. LABS: White blood cell count 12, hemoglobin 12, hematocrit 37, platelets 332,000. Sodium 137, potassium 4.6, chloride 100, CO2 24, BUN 13, creatinine 0.7, glucose 101. ASSESSMENT AND PLAN: 1. Acute hypoxemic respiratory failure. Multifactorial. 2. Bilateral lobe pneumonia. Continue with antibiotic therapy. 3. Status post video-assisted thoracoscopic surgery secondary to empyema. The patient currently has a chest tube in place. Management as per the general surgeon. 4. Right lower extremity deep vein thrombosis. Continue on full-dose Lovenox. 5. Paroxysmal atrial fibrillation. Continue on Cardizem and full-dose Lovenox. 6. Septic shock. Resolved. 7. Folate deficiency. Continue with folic acid replacement. 8. Anemia. Stable. 9. Continue with physical therapy. cc: Lina Head MD
--- NOTE | 2019-09-24 01:29 | PULMONOLOGY PROGRESS NOTE ---
DATE: 09/23/2019 SUBJECTIVE: The patient is awake, alert, and conversant. He has a fair cough effort. He reports he feels better. He is using his incentive spirometry. OBJECTIVE: Vital Signs: The patient has been afebrile for the last 24 hours. Blood pressure 119/71, heart rate 64, respiratory rate 27, oxygen saturation 98% on nasal cannula. HEENT: Pupils are equal and reactive. Oropharynx appears clear. Neck: Supple. Chest: Reveals diminished breath sounds right base with crackles noted. No air leak noted. Cardiac: S1-S2. Abdomen: Soft. Extremities: Without edema. LABORATORIES: Chest x-ray reveals slight decrease in right-sided consolidation/effusion. IMPRESSION: A 49-year-old with: 1. Acute hypoxemic respiratory failure. 2. Pleural effusion status post recent decortication. 3. Pneumonia. 4. Mild immunoglobulin G deficiency. 5. Deep vein thrombosis. 6. Paroxysmal atrial fibrillation. PLAN: 1. Continue oxygen for hypoxemic respiratory failure. 2. Continue to encourage incentive spirometry and bronchial hygiene. 3. Antibiotics per Infectious Disease. 4. Chest tube management per General Surgery. cc: Ray Obrien MD
[2019-09-24] MEDS: VANCOMYCIN 1.5 GM in NS 250 ML IV SCH ×2 (01:51→14:08)
[2019-09-24] MEDS: CARDIZEM PO SCH ×4 (01:51→21:06)
[2019-09-24] MEDS: LOPRESSOR IV SCH ×4 (01:52→21:09)
[2019-09-24] MEDS: XOPENEX NEB INH SCH ×6 (04:03→23:21)
[2019-09-24 05:13] LABS: ALLEN TEST YES; BE 1.9 mmoll (-3.0-3.0); BLOOD TYPE ARTERIAL; HCO3-(ACT) 26.3 mmoll (20.0-26.0); METHB 1.4 % (0.0-1.5); O2(CT) 12.5 mL/dL (15.0-23.0); PCO2(98.6) 34 mmHg (35-45); PO2(98.6) 53 mmHg (60-100); SAMPLE BLOOD; SAO2 92.1 % (95.0-100.0); pH(98.6) 7.48 (7.35-7.45)
[2019-09-24 05:14] LABS: MODALITY CANNULA
[2019-09-24 05:19] LABS: O2HB 88.8 % (95.0-99.0)
[2019-09-24] MEDS: MAXIPIME 2 GM/NS 2 GM/100 ML IVPB IV SCH ×3 (05:37→21:08)
[2019-09-24 06:56] LABS: BASO# 0.04 X1000 (0.0-0.2); BASO% 0.4 % (0.0-0.8); EOS# 0.28 X1000 (0.0-0.7); EOS% 2.7 % (0.0-10.0); HEMATOCRIT 36.4 % (42.0-52.0); HEMOGLOBIN 11.5 g/dL (14.0-18.0); LYMPH# 0.86 X1000 (1.2-3.4); LYMPH% 8.2 % (20.5-51.1); MCH 28.3 PG (27-31); MCHC 31.6 g/dL (33-37); MCV 89.7 FL (81-99); MONO# 0.86 X1000 (0.11-0.59); MONO% 8.2 % (1.7-9.3); MPV 9.1 FL (7.4-10.4); NEUT# 8.35 X1000 (1.4-6.5); NEUT% 79.5 % (42.2-75.2); PLT 331 X1000 (130-400); RBC 4.06 XMIL (4.7-6.1); WBC 10.49 X1000 (4.8-10.8)
--- NOTE | 2019-09-24 07:08 | Diag Imaging Result Doc PS360 ---
EXAM: CHEST-PORTABLE 09/24/2019 HISTORY: pleural effusion TECHNIQUE: AP portable upright at 0509 COMMENT: There is a right-sided chest tube. There are surgical skin clips over the right hemithorax. There is bilateral subsegmental atelectasis in the lung bases and hazy opacity over most of the right lung. Some of this is probably due to pleural effusion. Compared to 09/23/2019, there has been no appreciable change. IMPRESSION: Atelectasis. Right pleural effusion. Pulmonary edema versus pneumonia on the right. Electronically signed by Cam Vidal 09/24/2019 7:06 AM
[2019-09-24 07:20] LABS: AGAP 12; BUN 12 mg/dL (8-22); CALCIUM 8.2 mg/dL (8.8-10.2); CHLORIDE 100 mmol/L (98-107); COSMO 270; CREATININE 0.6 mg/dL (0.7-1.2); ESTIMATED GFR > 60; GLUCOSE 101 mg/dL (70-104); POTASSIUM 4.2 mmol/L (3.5-5.1); SODIUM 135 mmol/L (136-145); TCO2 23 mmol/L (25-35)
[2019-09-24] MEDS: MUCOMYST 20% INH SCH ×2 (08:27→20:00)
[2019-09-24] MEDS: DULCOLAX PR SCH ×2 (08:43→21:09)
[2019-09-24] MEDS: FOLIC ACID PO SCH (08:43)
[2019-09-24] MEDS: PROTONIX PO SCH (08:43)
[2019-09-24] MEDS: TUMS PO SCH ×3 (08:43→17:11)
[2019-09-24] MEDS: COLACE PO SCH ×2 (08:43→21:07)
[2019-09-24] MEDS: MIRALAX PO SCH ×2 (08:43→21:07)
[2019-09-24] MEDS: DILAUDID IV PRN ×2 (10:12→21:07)
[2019-09-24] MEDS: LOVENOX SUBQ SCH (11:10)
[2019-09-24] MEDS: LEVAQUIN 750 MG/D5W 750 MG/150 ML IVPB IV SCH (11:10)
[2019-09-24] MEDS: NORCO-5 PO PRN (17:31)
[2019-09-25] MEDS: LOVENOX SUBQ SCH ×3 (00:14→22:13)
--- NOTE | 2019-09-25 00:32 | PULMONOLOGY PROGRESS NOTE ---
DATE: 09/24/2019 SUBJECTIVE: The patient is awake and alert. He reports he did sit in the chair some today. Clinically, he feels better. OBJECTIVE: Vital Signs: Blood pressure 114/63, heart rate 85, respiratory rate 17, oxygen saturation 93% on 5 L per nasal cannula. HEENT: Pupils are equal and reactive. Oropharynx is clear. Neck: Supple. Chest: Reveals diminished breath sounds right lung base. No air leak noted. Cardiac: S1-S2. Abdomen: Soft. Extremities: Without edema. LABORATORIES: Microbiology reveals no new data. White blood count 10.49, hemoglobin 11.5, platelet count 331,000. Chest x-ray is unchanged. IMPRESSION: 1. A 49-year-old with pneumonia. 2. Complex pleural effusion, status post decortication. 3. Acute hypoxemic respiratory failure. 4. Mild immunoglobulin deficiency. 5. Deep vein thrombosis. 6. Paroxysmal atrial fibrillation. DISCUSSION: A 49-year-old with problems outlined above. The patient has been in the hospital 14 days and today is the 1st time he has had a normal white blood count. Clinically, he feels better and is moving in his room. PLAN: 1. Continue antibiotics per Infectious Disease. 2. Continue bronchial hygiene. 3. Wean oxygen as tolerated. 4. Chest tube management per General Surgery. cc: Ray Obrien MD
--- NOTE | 2019-09-25 01:13 | PROGRESS NOTE ---
DATE: 09/24/2019 SUBJECTIVE: The patient states that he feels weak. No acute events noted overnight. OBJECTIVE: Vital Signs: Temperature 98.4 degrees, blood pressure 127/64, heart rate 83, respirations 20, O2 saturation 96% on 5 L nasal cannula. General: This is a elderly male lying in bed, in no acute distress. Heart: S1, S2 normal. Regular rate and rhythm. Lungs: Equal air entry bilaterally. No wheezing. No rales. No rhonchi. Abdomen: Positive bowel sounds. Soft, nontender, nondistended. Extremities: No edema, no cyanosis. Neurologic: The patient is alert and oriented x3. LABS: White blood cell count 10, hemoglobin 11, hematocrit 36, platelets 331,000. Sodium 135, potassium 4.2, chloride 100, CO2 of 23, BUN 12, creatinine 0.6. Glucose 101. Chest x-ray shows right pleural effusion. ASSESSMENT AND PLAN: 1. Acute hypoxemic respiratory failure. Multifactorial. 2. Bilateral lobe pneumonia. Continue with antibiotic and bronchodilator therapy. 3. Status post video-assisted thoracoscopy with decortication secondary to an empyema. The patient currently has a chest tube in place. Further management as per the general surgeon. 4. Right lower extremity deep vein thrombosis. Continue on full-dose Lovenox. 5. Paroxysmal atrial fibrillation. Continue on Cardizem and full-dose Lovenox. 6. Septic shock. Resolved. 7. Folate deficiency. Continue with folic acid replacement. 8. Anemia. Stable. 9. Continue with physical therapy. cc: Lina Head MD [facility]
[2019-09-25] MEDS: CARDIZEM PO SCH ×4 (02:04→21:13)
[2019-09-25] MEDS: VANCOMYCIN 1.5 GM in NS 250 ML IV SCH (02:05)
[2019-09-25] MEDS: XOPENEX NEB INH SCH ×5 (03:33→19:56)
--- NOTE | 2019-09-25 04:42 | GENERAL SURGERY PROGRESS NOTE ---
DATE: 09/24/2019 SUBJECTIVE: He is doing fair. No new complaints. OBJECTIVE: Vital signs: He is afebrile. Vital signs are stable. General: He is awake and alert. No acute distress. Respiratory: Bilateral breath sounds. No increased work of breathing. Chest tube is having scant output. There is no air leak. LABORATORY: White blood cell count 10. Electrolytes reviewed, unremarkable. IMAGING: Chest x-ray shows small right pleural effusion, atelectasis and pulmonary edema versus pneumonia. ASSESSMENT AND PLAN: A 49-year-old male with acute respiratory failure, pleural effusion status post recent decortication, pneumonia, immunoglobulin G deficiency, deep venous thrombosis and paroxysmal atrial fibrillation. We are going to get him up and move him around today and see if he has any increased chest drainage. If not, we will remove the chest tube tomorrow. cc: Mohit Muir MD
[2019-09-25] MEDS: MAXIPIME 2 GM/NS 2 GM/100 ML IVPB IV SCH ×3 (04:49→22:13)
[2019-09-25 04:59] LABS: ALLEN TEST YES; BE 1.7 mmoll (-3.0-3.0); BLOOD TYPE ARTERIAL; HCO3-(ACT) 26.2 mmoll (20.0-26.0); METHB 1.5 % (0.0-1.5); O2(CT) 10.6 mL/dL (15.0-23.0); O2HB 92.7 % (95.0-99.0); PCO2(98.6) 37 mmHg (35-45); PO2(98.6) 64 mmHg (60-100); SAMPLE BLOOD; SAO2 95.8 % (95.0-100.0); THB 8.1 g/dL (11.5-17.4); pH(98.6) 7.45 (7.35-7.45)
[2019-09-25 05:00] LABS: MODALITY CANNULA
[2019-09-25] MEDS: LOPRESSOR IV SCH ×4 (05:58→22:08)
[2019-09-25 06:33] LABS: BASO# 0.04 X1000 (0.0-0.2); BASO% 0.5 % (0.0-0.8); EOS# 0.34 X1000 (0.0-0.7); EOS% 4.1 % (0.0-10.0); HEMATOCRIT 36.7 % (42.0-52.0); HEMOGLOBIN 11.6 g/dL (14.0-18.0); IMM GRAN# 0.07 X1000 (0.0-0.04); IMM GRAN% 0.9 % (0.0-0.5); LYMPH# 0.93 X1000 (1.2-3.4); LYMPH% 11.3 % (20.5-51.1); MCH 28.6 PG (27-31); MCHC 31.6 g/dL (33-37); MCV 90.4 FL (81-99); MONO# 0.83 X1000 (0.11-0.59); MONO% 10.1 % (1.7-9.3); MPV 9.1 FL (7.4-10.4); NEUT% 73.1 % (42.2-75.2); PLT 316 X1000 (130-400); RBC 4.06 XMIL (4.7-6.1); RDW 15.1 % (11.5-14.5); WBC 8.21 X1000 (4.8-10.8)
[2019-09-25 07:04] LABS: AGAP 12; BUN 12 mg/dL (8-22); CALCIUM 8.3 mg/dL (8.8-10.2); CHLORIDE 102 mmol/L (98-107); COSMO 272; CREATININE 0.7 mg/dL (0.7-1.2); ESTIMATED GFR > 60; GLUCOSE 101 mg/dL (70-104); POTASSIUM 4.1 mmol/L (3.5-5.1); SODIUM 136 mmol/L (136-145); TCO2 22 mmol/L (25-35)
--- NOTE | 2019-09-25 07:24 | Diag Imaging Result Doc PS360 ---
EXAM: CHEST-PORTABLE 09/25/2019 HISTORY: pleural effusion TECHNIQUE: AP portable upright at 0528 COMMENT: There is a chest tube on the right. There may be loculated pleural fluid in the minor fissure and laterally. There are atelectatic appearing opacities in the lingula and left lower lobe as well as in the right lower and middle lobe. Compared to 09/24/2019 the lungs are not as well-expanded. IMPRESSION: Poor inspiration. Bilateral pneumonia versus atelectasis. Pleural thickening and/or loculated fluid on the right. Electronically signed by Cam Vidal 09/25/2019 7:22 AM
[2019-09-25] MEDS: MIRALAX PO SCH ×2 (08:28→21:13)
[2019-09-25] MEDS: DULCOLAX PR SCH ×2 (08:29→22:08)
[2019-09-25] MEDS: FOLIC ACID PO SCH (08:29)
[2019-09-25] MEDS: TUMS PO SCH ×3 (08:29→17:02)
[2019-09-25] MEDS: COLACE PO SCH ×2 (08:29→21:13)
[2019-09-25] MEDS: PROTONIX PO SCH (08:29)
[2019-09-25] MEDS: MUCOMYST 20% INH SCH ×2 (08:53→19:56)
[2019-09-25] MEDS: DILAUDID IV PRN ×3 (09:17→21:13)
[2019-09-25] MEDS: LEVAQUIN 750 MG/D5W 750 MG/150 ML IVPB IV SCH (10:47)
--- NOTE | 2019-09-25 11:37 | HEMO/ONC PROGRESS NOTE ---
DATE: 09/25/2019 SUBJECTIVE: The patient is awake and sitting up in his bedside chair this morning. He has had his chest tube removed. He states he is feeling a lot better, that area is slightly sore. He feels he is breathing a lot better. He is able to take a deep breath and cough. He has had no acute events. He states that they have told him they may have to replace the chest tube. Surgery is following him for that. He is eating well. He is having hot flashes and cold chills, but he has not had any fever that he knows of. He feels he is getting better every day. OBJECTIVE: Vital Signs: Temperature 98.2 degrees, heart rate 77, respiratory rate 28, blood pressure 106/66. O2 saturation 96% on nasal cannula at 5 L. He is in 7/10 right chest pain. General: He is in no acute distress. HEENT: Sclera is anicteric. PERRLA. Oral mucosa is normal. Cardiovascular: Normal S1, S2. Heart rate and rhythm is regular. Respiratory: Right- sided lung sounds are diminished. Left sided lung sounds are clear. Normal respiratory effort. Chest tube was then removed. Site is bandaged and clean. Gastroenterology: Abdomen is protuberant, soft, and nontender. Bowel sounds are present. Extremities: Right lower extremity still has some mild edema. Neurological: Awake, alert, and oriented x4. No focal motor deficits noted. LABORATORY: WBCs 8.21, hemoglobin 11.6, hematocrit 36.7, and platelet count 316,000. RADIOLOGY: Chest x-ray shows poor inspiration. Bilateral pneumonia versus atelectasis. Pleural thickening and/or loculated fluid on the right. ASSESSMENT AND PLAN: 1. Acute hypoxic respiratory failure. Multifactorial. Please continue treating per medical management. The patient is improving well. 2. Bilateral lobe pneumonia. Continue with recommendations per Dr. Carroll. Continue antibiotic and bronchodilator therapy. 3. Status post VATS for loculated pleural effusion. The patient's chest tube has been removed although the x-ray shows continued loculated effusion. He was told by surgery that they may have to replace his chest tube. 4. Right lower DVT. Continue the patient on Lovenox b.i.d. 5. Paroxysmal atrial fibrillation. Patient's rate is controlled at this time. Keep him on Lovenox and Cardizem. Continue recommendations per Cardiology. 6. Folic acid deficiency. Continue replacement. 7. Anemia. This is stable. Transfuse as necessary. We will replete iron as an outpatient. Dictated by ARINA Maurer for Sherif Okeefe MD cc: Sherif Okeefe MD
[2019-09-25] MEDS: VANCOMYCIN 1.75 GM in NS 250 ML IV SCH (14:22)
--- NOTE | 2019-09-25 15:28 | GENERAL SURGERY PROGRESS NOTE ---
DATE: 09/25/2019 SUBJECTIVE: The patient feels about the same. He denies chest pain or shortness of breath. OBJECTIVE: Vital Signs: He is afebrile. Vital signs are stable. Chest tube with 40 mL out. No air leak. Respiratory: Bilateral breath sounds. No work of breathing. IMAGING: Chest x-ray reveals poor inspiration, bilateral pneumonia versus atelectasis, pleural thickening and/or loculated fluid on the right. ASSESSMENT AND PLAN: A 49-year-old male with probable pneumonia and right pleural effusion, status post partial thoracotomy, decortication and chest tube placement with drainage of the effusion. The chest tube is not draining anymore. We will remove it today. Further management per Dr. James. cc: Mohit Muir MD
--- NOTE | 2019-09-25 21:22 | PROGRESS NOTE ---
DATE: 09/25/2019 SUBJECTIVE: The patient is resting comfortably in bed. His chest tube was removed earlier this morning. OBJECTIVE: Vital Signs: Temperature 97.6 degrees, blood pressure 113/75, heart rate 80, respirations 17, O2 saturation is 96% on 5 L nasal cannula. Intake 1.7 L, output 1.7 L. General: This is a chronically ill-appearing, elderly male lying in bed in no acute distress. Heart: S1, S2. Normal regular rate and rhythm. Lungs: Equal air entry bilaterally. No wheezing. No rales. No rhonchi. Abdomen: Soft, nontender, nondistended. Extremities: No edema. No cyanosis. Neurologic: The patient is alert and oriented x4. LABS: White blood cell count 8.2, hemoglobin 11, hematocrit 36, platelets 316,000. Sodium 136, potassium 4.1, chloride 102, CO2 22, BUN 12, creatinine 0.7, glucose 101. ASSESSMENT AND PLAN: 1. Acute hypoxemic respiratory failure. Continue with supplemental oxygen and pulmonary toiletry. 2. Bilateral lobe pneumonia. Continue with antibiotics, bronchodilator therapy and supplemental oxygen. 3. Status post video-assisted thoracoscopy with decortication secondary to empyema. The chest tube was removed today. Further management as per the general surgeon. 4. Right lower extremity deep vein thrombosis. Continue on Lovenox. 5. Paroxysmal atrial fibrillation. Continue on Cardizem. 6. Folate deficiency. Continue with folic acid replacement. 7. Anemia. Stable. 8. Septic shock. Resolved. 9. Continue with physical therapy. cc: Lina Head MD
[2019-09-26] MEDS: MUCOMYST 20% INH SCH ×3 (00:10→20:04)
[2019-09-26] MEDS: XOPENEX NEB INH SCH ×7 (00:10→23:55)
--- NOTE | 2019-09-26 01:11 | PULMONOLOGY PROGRESS NOTE ---
DATE: 09/25/2019 SUBJECTIVE: The patient is awake, alert, and conversant. He reports his breathing is improved. He has been getting out of the bed in the chair. Chest tube was removed by Dr. Muir due to lack of drainage. OBJECTIVE: HEENT: Pupils are equal and reactive. Oropharynx appears clear. Neck: Supple. Chest: Reveals diminished breath sounds right base. Cardiac: S1-S2. Abdomen: Soft and without hepatosplenomegaly. Extremities: Without edema. LABORATORIES: Microbiology reveals no new data. White blood count 8.21, hemoglobin 11.6, platelet count 316,000. Arterial blood gas reveals a pH 7.45, pCO2 of 37, PO2 of 64. IMPRESSION: A 49-year-old with: 1. Pneumonia. 2. Complex pleural effusion, status post decortication. 3. Acute hypoxemic respiratory failure. 4. Deep vein thrombosis. 5. Immunoglobulin deficient. 6. Paroxysmal atrial fibrillation. PLAN: 1. Continue bronchial hygiene. 2. Continue antibiotics per Infectious Disease. His white blood count is now normal. Wean oxygen as tolerated. 3. Follow up 2-view chest x-ray tomorrow. cc: Ray Obrien MD
[2019-09-26] MEDS: CARDIZEM PO SCH ×4 (01:44→21:26)
[2019-09-26] MEDS: VANCOMYCIN 1.75 GM in NS 250 ML IV SCH ×2 (01:44→14:59)
[2019-09-26] MEDS: LOPRESSOR IV SCH ×4 (04:45→21:17)
[2019-09-26] MEDS: MAXIPIME 2 GM/NS 2 GM/100 ML IVPB IV SCH ×3 (04:45→21:26)
[2019-09-26 05:17] LABS: HEMATOCRIT 35.1 % (42.0-52.0); HEMOGLOBIN 11.2 g/dL (14.0-18.0); MCH 28.9 PG (27-31); MCHC 31.9 g/dL (33-37); MCV 90.7 FL (81-99); RBC 3.87 XMIL (4.7-6.1); RDW 15.2 % (11.5-14.5); WBC 6.99 X1000 (4.8-10.8)
[2019-09-26 05:49] LABS: AGAP 9; BUN 10 mg/dL (8-22); CALCIUM 8.1 mg/dL (8.8-10.2); CHLORIDE 101 mmol/L (98-107); COSMO 267; CREATININE 0.7 mg/dL (0.7-1.2); ESTIMATED GFR > 60; GLUCOSE 102 mg/dL (70-104); POTASSIUM 3.8 mmol/L (3.5-5.1); SODIUM 134 mmol/L (136-145); TCO2 24 mmol/L (25-35)
--- NOTE | 2019-09-26 07:37 | GENERAL SURGERY PROGRESS NOTE ---
DATE: 09/26/2019 SUBJECTIVE: The patient is resting comfortably. Reviewed notes from the weekend. He had his chest tube removed. OBJECTIVE: Vital Signs: The patient is currently afebrile. General: Resting comfortably. Cardiovascular: Regular rate and rhythm. Lungs: No increased labored breathing. ASSESSMENT AND PLAN: A 49-year-old gentleman, postoperative day 7 from thoracotomy and decortication on the right. Postoperative state. At this time, the patient's chest tube is removed. It was not draining significantly. His respiratory status appears stable. He still has some degree of fluid in the lung. Will follow up with repeat chest x-rays. Some of this fluid may be actually inside his lung, but will continue to follow while he is in the hospital. cc: Moody James MD
--- NOTE | 2019-09-26 08:49 | Diag Imaging Result Doc PS360 ---
EXAM: CHEST-2 VIEWS INDICATION: abnormal exam TECHNIQUE: 2 views COMPARISON: 09/25/2019 FINDINGS: The right chest tube has been removed. No residual pneumothorax is identified. Patchy airspace consolidations bilaterally are essentially stable, worse on the right. No new consolidation is identified. Cardiac silhouette is stable. IMPRESSION: Interval removal of the chest tube. Stable chest, otherwise. Electronically signed by Tamir Harrison 09/26/2019 8:47 AM
[2019-09-26] MEDS: TUMS PO SCH ×3 (08:55→16:50)
[2019-09-26] MEDS: PROTONIX PO SCH (08:55)
[2019-09-26] MEDS: MIRALAX PO SCH ×2 (08:55→21:27)
[2019-09-26] MEDS: FOLIC ACID PO SCH (08:55)
[2019-09-26] MEDS: COLACE PO SCH ×2 (08:55→21:26)
[2019-09-26] MEDS: DULCOLAX PR SCH ×2 (08:56→21:27)
[2019-09-26] MEDS: LOVENOX SUBQ SCH ×2 (11:03→21:27)
[2019-09-26] MEDS: LEVAQUIN 750 MG/D5W 750 MG/150 ML IVPB IV SCH (11:03)
[2019-09-26] MEDS: DILAUDID IV PRN ×2 (13:04→21:26)
--- NOTE | 2019-09-26 14:49 | INFECTIOUS DISEASE PROGRESS NO ---
DATE: 09/26/2019 PRESENT ILLNESS: The patient is status post thoracotomy with decortication. The patient's latest chest x-ray shows bilateral consolidation. MEDICATIONS: This is day 10 of Levaquin and also it is the same amount of treatment with cefepime and vancomycin. PHYSICAL EXAMINATION: Vital Signs: Temperature is 98 degrees, pulse 89, respirations 20, blood pressure 132/78. General: This is an ill-appearing, middle-aged male. He is sitting up in a chair today. Head, eyes, ears, nose, and throat: He can hear my spoken words and see near objects. He does not have any white coating on his tongue. Neck: No pain with movement. Lungs: Clear to auscultation. Cardiovascular: Regular heart rate. Thorax: The patient's chest tube site on the right has been removed. There is a large dressing around the site. The dressing is intact. Abdomen: Soft and nontender. Extremities: Legs, edema but no erythema. LAB AND X-RAY: Chest x-ray shows bilateral consolidation. All cultures from surgery are negative. Creatinine is 0.7, GFR is greater than 60. CBC shows a white count of 6,990, hemoglobin 11.2, and platelet count 283,000. ASSESSMENT AND PLAN: The patient is being treated for pneumonia with Levaquin, cefepime, and vancomycin. The patient's IgG level was slightly low at 673, but I do not think that level of IgG is clinically significant and it does not merit giving the patient IVIG. COMORBIDITIES: The patient has had gastric bypass with oral malabsorption syndrome. cc: Mekhi Carroll MD
[2019-09-27] MEDS: LOPRESSOR IV SCH (01:49)
[2019-09-27] MEDS: VANCOMYCIN 1.75 GM in NS 250 ML IV SCH (01:52)
[2019-09-27] MEDS: CARDIZEM PO SCH ×4 (01:52→20:29)
--- NOTE | 2019-09-27 03:47 | PROGRESS NOTE ---
DATE: 09/26/2019 SUBJECTIVE: The patient is resting comfortably in bed. He complains of mild shortness of breath. OBJECTIVE: Vital Signs: Temperature 98.6 degrees, blood pressure 126/81, heart rate 74, respirations 20, O2 saturation 92% on 5 L nasal cannula. Intake 1.8 L, output 1 L. General: This is an elderly male lying in bed in no acute distress. Heart: S1, S2 normal. Regular rate and rhythm. Lungs: Diminished breath sounds in the right lung field. No wheezing. No rales. Abdomen: Positive bowel sounds. Soft, nontender, nondistended. Extremities: No edema. No cyanosis. No calf tenderness. Neurologic: The patient is alert and oriented x4. LABS: White blood cell count 6.9, hemoglobin 11, hematocrit 35, platelets 283,000. Sodium 134, potassium 3.8, chloride 101, CO2 24, BUN 10, creatinine 0.7 glucose 102. IMAGING: Chest x-ray shows patchy airspace consolidations bilaterally. ASSESSMENT AND PLAN: 1. Acute hypoxemic respiratory failure. The patient remains on 5 L nasal cannula. Continue with pulmonary toiletry. 2. Bilateral lobe pneumonia. Continue with antibiotics as directed by Dr. Carroll. 3. Status post video-assisted thoracoscopy with decortication secondary to an empyema. The chest tube was removed on Thursday. General Surgery is following. 4. Right lower extremity deep vein thrombosis. Continue on Lovenox. 5. Paroxysmal atrial fibrillation. The patient is rate controlled. Continue on Cardizem. 6. Anemia. Stable. 7. Septic shock. Resolved. 8. Folate deficiency. Continue with folic acid replacement. 9. Continue with physical therapy. cc: Lina Head MD [facility]
[2019-09-27] MEDS: XOPENEX NEB INH SCH ×5 (03:50→19:51)
[2019-09-27] MEDS: MAXIPIME 2 GM/NS 2 GM/100 ML IVPB IV SCH (04:15)
[2019-09-27 06:14] LABS: HEMATOCRIT 35.1 % (42.0-52.0); HEMOGLOBIN 11.3 g/dL (14.0-18.0); MCH 29.2 PG (27-31); MCHC 32.2 g/dL (33-37); MCV 90.7 FL (81-99); MPV 8.8 FL (7.4-10.4); RBC 3.87 XMIL (4.7-6.1); RDW 15.1 % (11.5-14.5); WBC 6.69 X1000 (4.8-10.8)
[2019-09-27 06:29] LABS: AGAP 12; BUN 8 mg/dL (8-22); CALCIUM 8.2 mg/dL (8.8-10.2); CHLORIDE 103 mmol/L (98-107); COSMO 276; CREATININE 0.6 mg/dL (0.7-1.2); ESTIMATED GFR > 60; GLUCOSE 100 mg/dL (70-104); POTASSIUM 3.8 mmol/L (3.5-5.1); SODIUM 139 mmol/L (136-145); TCO2 24 mmol/L (25-35)
--- NOTE | 2019-09-27 06:59 | Diag Imaging Result Doc PS360 ---
CHEST-PORTABLE - 09/27/2019 INDICATION: respiratory failure COMPARISON: 09/26/2019 FINDINGS: Lung volumes are lower. Stable bilateral opacifications. Stable right hemidiaphragm elevation. Heart size remains borderline. No pneumothorax or large pleural effusion. IMPRESSION: No change from prior. Electronically signed by Mike Oleary 09/27/2019 6:57 AM
[2019-09-27] MEDS: TYLENOL PO PRN (07:19)
[2019-09-27] MEDS: MUCOMYST 20% INH SCH (08:07)
[2019-09-27] MEDS: MIRALAX PO SCH ×2 (08:33→20:30)
[2019-09-27] MEDS: FOLIC ACID PO SCH (08:34)
[2019-09-27] MEDS: TUMS PO SCH ×3 (08:35→16:41)
[2019-09-27] MEDS: PROTONIX PO SCH (08:35)
[2019-09-27] MEDS: LOVENOX SUBQ SCH (08:36)
[2019-09-27] MEDS: DULCOLAX PR SCH ×2 (08:36→20:30)
--- NOTE | 2019-09-27 10:02 | PROVIDER PROGRESS NOTE ---
Progress Note Pulmonary additional note: I recommend additional 10-14 days of PO antibiotics post discharge and repeat CT imaging in 4 weeks as out patient.
--- NOTE | 2019-09-27 13:00 | PROGRESS NOTE ---
DATE: 09/27/2019 INTERVAL HISTORY: Overnight no acute events. He was saturating 91% on 5 L nasal cannula. He is on anticoagulation for right lower extremity DVT and intravenous antibiotics. SUBJECTIVE: Mr. Chester states he is only occasionally coughing, though he is not bringing up any expectoration. He denies any chest pain. He denies any shortness of breath at rest. Denies any nausea, vomiting, abdominal pain. We discussed about an increasing physical activity. I told him that he may need a few more days before we start talking about discharge considering lung infiltrate and need for high amount of oxygen and he is upset with that. He immediately refused when I brought up an idea of rehab currently. VITAL SIGNS: Temperature of 98.8 degrees, pulse 79, respiratory 22, blood pressure 111/72, saturating 95% on 3 L nasal cannula. PHYSICAL EXAMINATION: General: Not in any acute distress. Oral cavity is moist. Respiratory: He has decreased air entry with inspiratory crackles on right inframammary and infrascapular region. He has adequate air entry on left lung regions, though mild inspiratory crackles on left base as well. Cardiovascular: S1, S2 normal. Regular. No murmur, rub, or gallop. Abdomen: Soft, nontender. Extremities: He has bilateral lower extremity edema. Neurologic: He is alert and oriented x3. LABORATORY DATA: Suggestive of normocytic anemia. Normal platelet count. He has normal electrolytes. No positive microbiological data. Chest x-ray suggests essentially stable chest with bilateral opacification, elevation of right hemidiaphragm without new consolidation or effusion. ASSESSMENT AND PLAN: 1. Acute hypoxic respiratory failure due to predominantly right lung and bilateral lower lobe pneumonia with right-sided loculated pleural effusion status post inadequate ultrasound guided thoracenteses eventually requiring video-assisted thoracoscopic surgery decortication and chest tube on 09/19/2019. His chest tube was removed on 09/25/2019. Continue oxygen to maintain saturation more than 92%. Continue intravenous cefepime, intravenous vancomycin and levofloxacin as per Infectious Disease recommendation and wean down oxygen as tolerated. Continue physical therapy. He does appear to have persistent infiltrate and atelectasis as well. 2. Atrial fibrillation with rapid ventricular response on presentation because of sepsis now resolved. Continue oral diltiazem. 3. Right lower extremity acute deep venous thrombosis. Continue therapeutic dose of enoxaparin. 4. Septic shock, acute kidney injury on presentation has resolved. He does have prior history of gastric bypass surgery. DISPOSITION: I will continue to monitor patient in [facility]. Physical therapy has been working with him. His baseline functional status was quite good. He may or may not need rehabilitation depending on his oxygen need. Plan of care discussed with him. I answered all of his questions. cc: Victoriano Verde MD
--- NOTE | 2019-09-27 13:26 | HEMO/ONC PROGRESS NOTE ---
DATE: 09/27/2019 SUBJECTIVE: The patient is awake this morning, sitting up in bed. He is getting more aggravated with being in the hospital for so many days. We discussed with the hospitalist today regarding allowing him to get up and start walking around. He denies any pain with his leg whatsoever. He has gotten up and sat in the chair some and he has no problem walking on that leg. The patient states he feels better every day. His chest tube has been removed. They will not replace it. He is able to take a deep breath and cough. His appetite is good. He has no complaints. OBJECTIVE: Vital Signs: Temperature 98.1 degrees, pulse rate 67, respiratory rate 20, blood pressure 126/71, O2 saturation 95% on room air. He is in 0/10 pain. PHYSICAL EXAMINATION: General: He is in no acute distress. HEENT: Sclerae is anicteric. PERRLA. Oral mucosa is normal. Cardiovascular: Normal S1, S2. Heart rate and rhythm regular. Respiratory: Diminished breath sounds continue on the right lung. No wheezing or adventitious breath sounds. Left lung is clear to auscultation. The patient is able to cough freely, and deep breathe. Abdomen: Protuberant, soft, and nontender. Bowel sounds are present. Extremities: Left lower extremity has more edema than the right lower extremity. No tenderness to palpation. Bilateral lower extremities are warm to touch. Neurological: Awake, alert, oriented x4. No focal motor deficits noted. LABORATORY: WBC 6.69, hemoglobin 11.3, hematocrit 35.1, platelet count 267,000. RADIOLOGY: This morning's chest x-ray shows no change from prior. Stable bilateral opacification. No pneumothorax or large pleural effusion. ASSESSMENT AND PLAN: 1. Acute hypoxemic respiratory failure, resolved, multifactorial. Dr. Sherman has recommended he continue oral antibiotics for 10 to 14 days after discharge and repeat his CT imaging in 4 weeks as an outpatient. The patient is continuing on nasal cannula. He did well on a trial today off his nasal cannula. 2. Bilateral lobe pneumonia. Continue recommendations per Dr. Carroll. The patient is improving and doing very well. 3. Status post video-assisted thorascopic surgery for loculated pleural effusion. The patient's chest tube has been removed. He has now been told by surgery that he will not need replacement. He is continued to be followed by surgery. He is sore at the site but healing well. 4. Right lower deep venous thrombosis. The patient continues on Lovenox. Convert to xarelto prior to discharge. 5. Paroxysmal atrial fibrillation, aware. 6. Folic acid deficiency aware. 7. Anemia. Aware. Transfuse as necessary. We will provide an iron infusion as an outpatient. Dictated by ARINA Maurer for Sherif Okeefe MD cc: Sherif Okeefe MD [facility]
[2019-09-27] MEDS: NORCO-5 PO PRN (13:30)
--- NOTE | 2019-09-27 14:51 | GENERAL SURGERY PROGRESS NOTE ---
DATE: 09/27/2019 SUBJECTIVE: Patient seems to be doing okay. He still says he is breathing better. OBJECTIVE: Vital Signs: Patient is currently afebrile. His vital signs are stable. General: No acute distress. Cardiovascular: Regular rate and rhythm. Lungs: No increased labored breathing. Abdomen: Soft, nondistended. DATA: Chest x-ray from this morning: Official report pending but may be slightly worse, but look slightly worse on both sides. It may be related to the fact that was portable. ASSESSMENT AND PLAN: A 49-year-old gentleman postoperative day number 8 from thoracotomy decortication on the right. 1. Postoperative state. At this time the patient seems to be doing relatively well. Will likely need to wait a month or 2 before considering any repeat surgical intervention on his chest if he needs it at this point, if he is symptomatically improving, would just want to give him time to see how his lung improves. 2. We will continue to follow while he is in the hospital. cc: Moody James MD
--- NOTE | 2019-09-27 15:17 | Diag Imaging Result Doc PS360 ---
EXAM: CHEST-PORTABLE 09/27/2019 HISTORY: Right chest discomfort. TECHNIQUE: AP portable upright at 1438 COMMENT: There is apparent platelike atelectasis bilaterally. There is also loculated pleural fluid present on the right. This has been demonstrated on CT on 09/22/2019. Overall there has been no significant change since the previous study. IMPRESSION: Pleural thickening and loculated fluid on the right. Bibasilar atelectasis. Electronically signed by Cam Vidal 09/27/2019 3:14 PM
--- NOTE | 2019-09-27 16:18 | Diag Imaging Result Doc PS360 ---
EXAM: US NON VASC EXTREMITY LIMITED 09/27/2019 HISTORY: Right scapular region swelling. Evaluate TECHNIQUE: Ultrasound of the right scapular region. COMMENT: There is a complex septated fluid collection measuring 8.4 x 5.7 x 6.6 cm. It is unclear from the images exactly where this is located, however given the appearance on the chest CT of 09/22/2019 this is fairly close to the passage of the chest tube which was present previously. It is likely this is related to a serous fluid collection or hematoma. IMPRESSION: Soft tissue fluid collection as described. Electronically signed by Cam Vidal 09/27/2019 4:16 PM
[2019-09-27] MEDS: NORCO-10 PO PRN ×2 (16:39→20:33)
[2019-09-27] MEDS ORDERED: MORPHINE IV PRN (18:41)
--- NOTE | 2019-09-27 19:14 | INFECTIOUS DISEASE PROGRESS NO ---
DATE: 09/27/2019 PRESENT ILLNESS: The patient is status post thoracotomy with decortication. The patient has bilateral consolidation. MEDICATIONS: This is 11th day of treatment with Levaquin, cefepime and vancomycin. PHYSICAL EXAMINATION: Vital Signs: Temperature is 99 degrees, pulse 111, respirations 14, blood pressure 132/46. General: This is a somewhat ill-appearing, middle-aged male. Each day he actually looks a little bit better. He is in no acute distress. Head/eyes/ears/nose/throat: He can hear my spoken words and see near objects. I did not see any white patches in his mouth. Neck: No pain with movement. Lungs: I heard some rales in the left lower lobe and some diminished breath sounds on the right side. Cardiovascular: Heart rate is regular. Thorax: The patient's chest tube site has a dressing on it. The dressing is intact. There is no tenderness at that area. Abdomen: Soft and nontender. Extremities: Legs are edematous but not erythematous. Neurologic: The patient is alert. He can move his extremities. He talks in a coherent fashion. There is no tremor. LAB AND X-RAY: Chest x-ray shows bilateral opacities. Creatinine is 0.6. GFR is greater than 60. CBC shows a white count of 6690, hemoglobin is 11.3, and platelet count is 267,000. ASSESSMENT AND PLAN: I have discussed the patient's situation with Dr. Verde and also Dr. Sherman left a report for the patient that it would be reasonable to switch the patient to oral antibiotics and hopefully let him go home soon. Dr. Verde and I are in agreement with that. I have discontinued his IV cefepime, vancomycin and Levaquin and instead place the patient on a combination of p.o. Zyvox 600 mg every 12 hours and ciprofloxacin 500 mg p.o. every 12 hours. COMORBIDITIES: The patient has had gastric bypass. He is able to take p.o. medications and have them absorbed well. cc: Mekhi Carroll MD
--- NOTE | 2019-09-27 19:24 | PROGRESS NOTE ---
DATE: 09/27/2019 ADDENDUM: I was informed by the nurse that after working with physical therapy, when patient was trying to sit down, he suddenly felt a pop around his shoulder region, and then was experiencing some numbness and pain around the right shoulder and right upper extremity. On review, on the nurses' examination, he was found to have a large collection right above where the chest tube was placed. The patient says he was not aware of any collection or subfascial cyst or adenoma or lipoma before. I evaluated him at the bedside. On chest examination, his air entry is adequate on the left side of his lung andrew. He has adequate air entry in the right supramammary region, decreased air entry in right infrascapular region with inspiratory crackles. There is about a 10 x 10 cm area over the right scapula which is mildly tender. There is no erythema. There is no edema. There is no fluctuance. I will order an ultrasound to evaluate it better. It could just be a lipoma or a sebaceous cyst that was not noticed before. I will just get an ultrasound to rule out any abscess or hematoma collection around it. I also discussed with the nurse about informing the surgical team about it. cc: Victoriano Verde MD
[2019-09-27] MEDS: CIPRO PO SCH (20:29)
[2019-09-27] MEDS: ZYVOX PO SCH (20:29)
[2019-09-27] MEDS: DILAUDID IV PRN (22:07)
[2019-09-28] MEDS: XOPENEX NEB INH SCH ×7 (00:10→23:45)
[2019-09-28] MEDS: NORCO-10 PO PRN ×3 (00:40→13:03)
[2019-09-28] MEDS: DILAUDID IV PRN ×5 (01:59→21:05)
[2019-09-28 06:57] LABS: HEMATOCRIT 28.9 % (42.0-52.0); HEMOGLOBIN 9.2 g/dL (14.0-18.0); MCH 28.8 PG (27-31); MCHC 31.8 g/dL (33-37); MCV 90.3 FL (81-99); MPV 9.2 FL (7.4-10.4); RBC 3.2 XMIL (4.7-6.1); RDW 14.8 % (11.5-14.5); WBC 9.32 X1000 (4.8-10.8)
[2019-09-28 07:16] LABS: AGAP 10; BUN 10 mg/dL (8-22); CALCIUM 8.4 mg/dL (8.8-10.2); CHLORIDE 101 mmol/L (98-107); COSMO 272; CREATININE 0.6 mg/dL (0.7-1.2); ESTIMATED GFR > 60; GLUCOSE 119 mg/dL (70-104); POTASSIUM 3.7 mmol/L (3.5-5.1); SODIUM 136 mmol/L (136-145); TCO2 25 mmol/L (25-35)
--- NOTE | 2019-09-28 07:20 | Diag Imaging Result Doc PS360 ---
EXAM: CHEST-PORTABLE INDICATION: respiratory failure TECHNIQUE: One view COMPARISON: 09/27/2019 FINDINGS: Loculated pleural fluid on the right is essentially stable. Platelike atelectasis bilaterally is essentially stable. No new consolidation is identified. Cardiac silhouette is stable. IMPRESSION: Essentially stable chest. Electronically signed by Tamir Harrison 09/28/2019 7:18 AM
[2019-09-28] MEDS: DULCOLAX PR SCH ×2 (09:55→20:37)
[2019-09-28] MEDS: FOLIC ACID PO SCH (09:56)
[2019-09-28] MEDS: PROTONIX PO SCH (09:56)
[2019-09-28] MEDS: TUMS PO SCH ×3 (09:56→16:53)
[2019-09-28] MEDS: CARDIZEM CD PO SCH (09:56)
[2019-09-28] MEDS: CIPRO PO SCH ×2 (09:56→20:36)
[2019-09-28] MEDS: ZYVOX PO SCH ×2 (09:56→20:36)
[2019-09-28] MEDS: MIRALAX PO SCH ×2 (09:57→20:35)
--- NOTE | 2019-09-28 11:31 | GENERAL SURGERY PROGRESS NOTE ---
DATE: 09/28/2019 Called yesterday to see the patient. He was mobilizing and felt a pop. It looks like, on physical exam, he may have ruptured his sutures with his muscle and caused a hematoma. At this point, I recommend just monitoring it. His chest x-ray overall looks stable if not slightly improved from yesterday. From a surgical point of view, just continue to monitor. I recommend warm compresses to the shoulder region. cc: Moody James MD
--- NOTE | 2019-09-28 13:41 | HEMO/ONC PROGRESS NOTE ---
DATE: 09/28/2019 SUBJECTIVE: The patient was asleep this morning when I came in. He awoke easily to my voice. He had an episode yesterday where he was lifting himself up in bed after working with physical therapy, and felt a pop and pain at the site of his chest tube removal. The patient was examined by surgery and hospitalist. It was found that he had ruptured his sutures within the muscle, and it caused a significant sized hematoma. He was provided pain medication and warm compresses. The patient states he continues to feel very sore, and is still enlarged. Otherwise, the patient is improving. He is breathing well. His leg is not hurting. He has no problems walking. He is hoping to go home soon. OBJECTIVE: Vital Signs: Temperature 98.3 degrees, pulse rate 90, respiratory rate 21, and blood pressure 126/81, and O2 saturation 94% on room air. He is in 3/10 right-sided back pain. Respiratory: Diminished breath sounds on the right side. Left lung clear to auscultation. Abdomen: Protuberant, soft, and nontender. Bowel sounds are present. Extremities: Left lower extremity has more edema than the right lower extremity. No pain to palpation. No redness. No deformity. Neurological: Awake, alert, and oriented x3. No focal motor deficits noted. Skin: Hematoma with dressing noted to the right side of his back. No petechiae, ecchymosis, or rashes noted on exposed skin. LABORATORY: WBCs 9.32, hemoglobin 9.2, hematocrit 28.9, and platelet count 356,000. Creatinine 0.6. ASSESSMENT AND PLAN: 1. Acute hypoxemic respiratory failure, resolved. 2. Bilateral lobe pneumonia, improving. 3. Status post VATS for loculated pleural effusion, and now has hematoma, otherwise recovering well. 4. Right lower deep vein thrombosis. 5. Paroxysmal atrial fibrillation, stable. Aware. 6. Folic acid deficiency aware. 7. Anemia. Aware. Transfuse as necessary. PLAN: The patient is continuing to heal well. Continue to allow him to get up and work with Physical Therapy as necessary, get him out of the chair, get him into his bedside chair as much as possible. Continue medical management per hospitalist, ID and Pulmonology. We will continue to monitor the patient peripherally. We will follow up with him as an outpatient. Dictated by ARINA Maurer for Sherif Okeefe MD [facility]
--- NOTE | 2019-09-28 14:43 | INFECTIOUS DISEASE PROGRESS NO ---
DATE: 09/28/2019 PRESENT ILLNESS: Mr. Chester is status post thoracotomy with decortication and has been treated for pneumonia. Yesterday, he was found to have a serous fluid collection or hematoma to the right scapular region. MEDICATIONS: He is receiving Zyvox 600 mg by mouth every 12 hours and Cipro 500 mg by mouth every 12 hours. Today is day 1 of the oral regimen. PHYSICAL EXAMINATION: Vital Signs: Temperature is 98.1 degrees, pulse rate 67, respiratory rate 14, blood pressure 102/66. O2 saturation is 93% on 4 L nasal cannula. General: This is a chronically ill-appearing, middle-aged gentleman. He is lying in bed, currently in moderate amount of pain to the right shoulder region. HEENT: Atraumatic, normocephalic. Oral mucous membranes are pink and moist. Conjunctivae are pale. Neck: Supple. Trachea is midline. Cardiovascular: Heart rate and rhythm are regular. Normal sinus rhythm on the monitor. Respiratory: Lung sounds are clear to the left upper lobe and diminished throughout. There is a large dressing to the axillary region which was not removed at this time. Abdomen: Soft, obese and nontender. Bowel sounds are active. Integumentary: Skin is warm and dry. There is 1+ pretibial edema noted bilaterally. Neurologic: He is awake, alert, oriented. Able to ambulate with assistance. He has a lot of pain with movement to the right upper extremity. LABORATORY AND X-RAY: Today, his white count is 9.32, hemoglobin 9.2, platelet count 336,000. Creatinine is 0.6. Estimated GFR is greater than 60. Chest x-ray today is stable with a loculated pleural effusion on the right and bilateral plate light plate like atelectasis. ASSESSMENT AND PLAN: Mr. Chester is being treated status post thoracotomy with decortication with a subsequent hematoma. His hemoglobin has dropped this morning, most likely due to the new hematoma. For now, we will continue the Zyvox and Cipro as ordered for the pneumonia. These plans have been discussed with and recommended by Dr. Carroll. COMORBIDITIES: For Mr. Orta include obesity and history of gastric bypass. Dictated by ARINA Long for Mekhi Carroll MD cc: Mekhi Carroll MD [facility]amm[facility]
--- NOTE | 2019-09-28 16:45 | PROGRESS NOTE ---
DATE: 09/28/2019 OVERNIGHT EVENTS: Patient received ultrasound of his back yesterday and there was complex septated fluid collection of 8 x 5 x 6 cm, which was close to the passage of the chest tube which was present previously. It is likely related to serous fluid collection or hematoma for which surgical team had recommended conservative management SUBJECTIVE: Mr. Chester states his back was hurting right where the hematoma is and it was not being taken care of by oral medication, so his pain medications were eventually changed to intravenous. Otherwise, he denies any chest pain, shortness of breath. He has dry cough. He denies nausea, vomiting, or abdominal pain. He denies any lower extremity edema. He is on room air. VITALS: Temperature 98.3 degrees, pulse 90, respiratory 21, blood pressure 126/81. He is saturating 94% on room air. PHYSICAL EXAMINATION: Not in acute distress. Oral cavity is moist. He has decreased air entry in right inframammary region with inspiratory crackles. Adequate air entry on left lung region . S1, S2 normal. Regular. No murmur, rub, or gallop. Abdomen: Soft, obese, nontender. Active bowel sounds. He has mild bilateral lower extremity edema, more pronounced on the right than on the left. He is alert and oriented x3. Right chest wall hematoma: It is above the site of entry of previously placed chest tube. Slightly tender, no pus. LABS: Suggestive of drop in hemoglobin due to blood loss in the hematoma. Normal electrolytes. No new microbiological data. Chest x-ray performed today has loculated pleural effusion on the right and platelet atelectasis without any consolidation. ASSESSMENT AND PLAN: 1. Right-sided chest wall hematoma likely in the setting of previous the inserted chest tube or thoracotomy procedure related wound bleeding on therapeutic anticoagulation. I am holding his anticoagulation and closely monitoring his hematoma to see if it evolves and progresses or not I will consider resuming anticoagulation 24 hours later on 09/29/2019. I discussed with the patient regarding the risk versus benefit associated with it and he is in agreement. 2. Acute blood loss anemia, likely because of right-sided chest wall hematoma. I will monitor his CBC. No need of acute transfusion. I will continue him on intravenous pain medications, hydromorphone as needed 3. Acute hypoxic respiratory failure due to predominantly right lung and bilateral lower lobe pneumonia with right-sided loculated pleural effusion, status post video- assisted thoracoscopic surgery decortication and chest tube insertion on September 19 which was removed on September 25. He continues to have some loculated pleural effusion and there is a concern that there might be an abscess inside the lung. However, his clinical status has improved so the plan is to continue him on oral antibiotics. He would need a repeat CT scan 2 to 4 weeks after discharge and based on that, further plan regarding surgery will be made outpatient. General surgical team on board. I will continue him on oral ciprofloxacin. 4. Atrial fibrillation with rapid ventricular response on presentation because of sepsis, now resolved. I will continue oral diltiazem. Next septic shock, acute kidney injury have resolved. He previously had gastric bypass surgery. DISPOSITION: I will continue to monitor patient in [facility]. Plan of care discussed with the patient. He is in agreement with it. All of his questions have been answered. His [facility] paperwork has been filled out. cc: Victoriano Verde MD [facility]TD[facility]
[2019-09-28] MEDS: NS NEB INH SCH (20:13)
[2019-09-29] MEDS: NORCO-10 PO PRN ×4 (00:27→21:22)
[2019-09-29] MEDS: XOPENEX NEB INH SCH ×6 (03:44→22:52)
[2019-09-29] MEDS: NS NEB INH SCH ×3 (03:44→16:30)
[2019-09-29 06:08] LABS: INR 1.48; PROTIME 18.2 Seconds (11.0-16.0)
[2019-09-29 06:09] LABS: PTT 45.8 Seconds (22.3-41.8)
[2019-09-29 06:18] LABS: BASO# 0.06 X1000 (0.0-0.2); BASO% 0.7 % (0.0-0.8); EOS# 0.25 X1000 (0.0-0.7); EOS% 2.8 % (0.0-10.0); HEMATOCRIT 25.7 % (42.0-52.0); HEMOGLOBIN 8.1 g/dL (14.0-18.0); IMM GRAN# 0.05 X1000 (0.0-0.04); IMM GRAN% 0.6 % (0.0-0.5); LYMPH# 1.74 X1000 (1.2-3.4); LYMPH% 19.5 % (20.5-51.1); MCH 28.4 PG (27-31); MCHC 31.5 g/dL (33-37); MCV 90.2 FL (81-99); MONO# 1.08 X1000 (0.11-0.59); MONO% 12.1 % (1.7-9.3); MPV 8.9 FL (7.4-10.4); NEUT# 5.73 X1000 (1.4-6.5); NEUT% 64.3 % (42.2-75.2); PLT 304 X1000 (130-400); RBC 2.85 XMIL (4.7-6.1); RDW 14.8 % (11.5-14.5); WBC 8.91 X1000 (4.8-10.8)
--- NOTE | 2019-09-29 07:17 | Diag Imaging Result Doc PS360 ---
EXAM: CHEST-PORTABLE 09/29/2019 HISTORY: respiratory failure TECHNIQUE: AP portable upright at 0508 COMMENT: There is pleural fluid and/or thickening on the right. There are coarse and alveolar opacities bilaterally similar in appearance to 09/28/2019. There has been no substantial change since 09/27/2019. IMPRESSION: Loculated pleural fluid on the right. Bilateral atelectasis and/or pneumonia. Electronically signed by Cam Vidal 09/29/2019 7:14 AM
[2019-09-29] MEDS: ZYVOX PO SCH ×2 (07:47→21:22)
[2019-09-29] MEDS: CIPRO PO SCH ×2 (07:47→21:22)
[2019-09-29] MEDS: MIRALAX PO SCH ×2 (08:31→21:22)
[2019-09-29] MEDS: FOLIC ACID PO SCH (08:32)
[2019-09-29] MEDS: TUMS PO SCH ×3 (08:32→16:52)
[2019-09-29] MEDS: CARDIZEM CD PO SCH (08:32)
[2019-09-29] MEDS: PROTONIX PO SCH (08:32)
[2019-09-29] MEDS: DULCOLAX PR SCH ×2 (08:40→21:22)
--- NOTE | 2019-09-29 11:24 | GENERAL SURGERY PROGRESS NOTE ---
DATE: 09/29/2019 SUBJECTIVE: The patient seems to be doing okay. His chest wall does not seem to be expanding, but his hematocrit has gone down to 25. This may still be equilibrating and his Lovenox is being held. He seems to otherwise be doing okay. We will continue supportive care for the hematoma at this moment and continue to monitor it. cc: Moody James MD
--- NOTE | 2019-09-29 11:41 | PROGRESS NOTE ---
DATE: 09/29/2019 INTERVAL HISTORY: No acute events overnight. Mr. Chester had further drop in his hemoglobin. He was breathing well on room air. He has been able to work out with Physical Therapy. SUBJECTIVE: He denies any chest pain. He denies shortness of breath at rest. He gets minimally short of breath after physical exertion. He denies any cough. Denies any vomiting, abdominal pain. OBJECTIVE: Vital Signs: Temperature of 97.9 degrees, pulse 86, respiratory rate 20, blood pressure 107/76, saturating 95% room air. General: Not in acute distress. HEENT: Oral cavity is moist. Lungs: Air entry diminished in right infrascapular region. Adequate air entry on left lung and right suprascapular region. Cardiovascular: S1, S2 normal. No murmur, rub, or gallop. Abdomen: Soft, nontender. Mild bilateral lower extremity edema. He has at least 15 x 15 cm hematoma over the right chest wall. There are sutures of previous thoracotomy. He also has a chest tube wound, which is not draining. The hematoma appears probably slightly less in size as compared to yesterday. LABORATORY DATA: Suggestive of drop in hemoglobin to 8.1. Normal platelet count. No electrolytes today. MICROBIOLOGY: No new microbiological data. IMAGING: Suggests persistent right loculated pleural effusion. ASSESSMENT AND PLAN: 1. Right-sided chest wall hematoma in the setting of previously inserted chest tube and probably rupture of sutures taken internally, and concurrent use of therapeutic anticoagulation. His hematoma size-wolfe appears to be stabilizing. I am holding anticoagulation. I will follow up with CBC tomorrow. 2. Acute blood loss anemia due to right-sided chest wall hematoma. No need of transfusion at the moment. I will monitor CBC. 3. Acute deep venous thrombosis affecting the right lower extremity. Unfortunately, I have to hold anticoagulation considering his acute blood loss anemia. After discussion with the patient, we decided not to resume anticoagulation at the moment. We discussed various options with him, including inferior vena cava filter placement, surgical exploration of the hematoma, etc., but I think at the moment, we are going to manage it conservatively with holding the anticoagulation. I will follow up with CBC, and consider resuming anticoagulation tomorrow if his blood count is stable. 4. Acute hypoxic respiratory failure due to predominantly right lung and bilateral lower lobe pneumonia and right-sided loculated pleural effusion, status post video-assisted thoracoscopic surgery on 09/19/2019 with chest tube placement, which was removed on 09/25/2019. He continues to have right-sided loculated pleural effusion, but symptomatically he has improved. Continue oral linezolid and ciprofloxacin as per Infectious Disease recommendation, and outpatient followup of his loculated pleural effusion with General Surgery and Pulmonology team. 5. Atrial fibrillation with rapid ventricular response on presentation because of sepsis, now resolved. Continue oral diltiazem. 6. His septic shock and acute kidney injury have resolved. He previously had gastric bypass surgery. 7. Disposition. Continue to monitor the patient in PVC unit. Eventually, I will consider transitioning him to routine medical floor. Plan of care discussed with him. His questions have been answered. cc: Victoriano Verde MD
--- NOTE | 2019-09-29 19:33 | INFECTIOUS DISEASE PROGRESS NO ---
DATE: 09/29/2019 PRESENT ILLNESS: The patient is status post thoracotomy with decortication due to pneumonia. He has developed a fluid collection in the right scapular area. MEDICATIONS: The patient is on a combination of Zyvox and ciprofloxacin. This is day 2 of treatment with those 2 agents. OBJECTIVE: Vital signs: Temperature is 99.3 degrees, pulse 80, respirations 18, blood pressure is 137/77. Generally, this is a somewhat ill-appearing middle-aged male. He is in no acute distress. Head, eyes, ears, nose and throat: He can hear my spoken words and see near objects. I do not see any white patches on his tongue. Neck: No pain with movement of the neck. Lungs: There were diminished breath sounds on the right side. The left side was clear. Cardiovascular: Heart rate is regular. Abdomen soft and nontender. Extremities: The patient has bilateral leg edema but no erythema. LABORATORY DATA: CBC shows a white count of 8910, hemoglobin 8.1, platelet count 304,000. DIAGNOSTIC DATA: Chest x-ray shows right pleural effusion and bilateral opacities. ASSESSMENT AND PLAN: 1. The patient is status post thoracotomy with decortication and subsequent hematoma formation. The patient had pneumonia, although we were unable to identify what type of pneumonia. He also had pleural involvement and as mentioned above, he has undergone decortication. I plan to continue Zyvox and Cipro for the above findings. I am going to repeat the CBC tomorrow in view of the fact that the patient's hemoglobin already is low. 2. Comorbidities: The patient is obese, and he has had a history of gastric bypass. cc: Mekhi Carroll MD
[2019-09-30] MEDS: XOPENEX NEB INH SCH ×6 (03:32→23:09)
[2019-09-30 06:09] LABS: BASO# 0.05 X1000 (0.0-0.2); BASO% 0.6 % (0.0-0.8); EOS# 0.29 X1000 (0.0-0.7); EOS% 3.5 % (0.0-10.0); HEMATOCRIT 25.1 % (42.0-52.0); HEMOGLOBIN 7.6 g/dL (14.0-18.0); IMM GRAN% 1.2 % (0.0-0.5); LYMPH% 21.5 % (20.5-51.1); MCH 27.6 PG (27-31); MCHC 30.3 g/dL (33-37); MCV 91.3 FL (81-99); MONO# 0.99 X1000 (0.11-0.59); MONO% 11.8 % (1.7-9.3); MPV 8.8 FL (7.4-10.4); NEUT# 5.16 X1000 (1.4-6.5); NEUT% 61.4 % (42.2-75.2); PLT 318 X1000 (130-400); RBC 2.75 XMIL (4.7-6.1); RDW 14.9 % (11.5-14.5); WBC 8.39 X1000 (4.8-10.8)
[2019-09-30 06:19] LABS: AGAP 11; BUN 10 mg/dL (8-22); CALCIUM 8.1 mg/dL (8.8-10.2); CHLORIDE 101 mmol/L (98-107); COSMO 275; CREATININE 0.6 mg/dL (0.7-1.2); ESTIMATED GFR > 60; GLUCOSE 105 mg/dL (70-104); MAGNESIUM 1.7 mg/dL (1.5-2.7); SODIUM 138 mmol/L (136-145); TCO2 26 mmol/L (25-35)
--- NOTE | 2019-09-30 07:13 | Diag Imaging Result Doc PS360 ---
EXAM: CHEST-PORTABLE 09/30/2019 HISTORY: respiratory failure TECHNIQUE: AP portable at 0554 COMMENT: There continues to be loculated pleural fluid present on the right including in the fissures. The appearance of the chest has not changed significantly since 09/29/2019 or 09/28/2019. IMPRESSION: Stable chest. Electronically signed by Cam Vidal 09/30/2019 7:11 AM
[2019-09-30] MEDS: TUMS PO SCH ×3 (08:17→20:24)
[2019-09-30] MEDS: FOLIC ACID PO SCH (08:17)
[2019-09-30] MEDS: CIPRO PO SCH ×2 (08:17→20:33)
[2019-09-30] MEDS: ZYVOX PO SCH (08:17)
[2019-09-30] MEDS: CARDIZEM CD PO SCH (08:17)
[2019-09-30] MEDS: MIRALAX PO SCH ×2 (08:17→20:33)
[2019-09-30] MEDS: DULCOLAX PR SCH ×2 (08:17→20:26)
[2019-09-30] MEDS: PROTONIX PO SCH (08:17)
[2019-09-30] MEDS ORDERED: AUGMENTIN PO SCH (09:00)
[2019-09-30] MEDS: NS NEB INH SCH ×2 (09:08→16:12)
--- NOTE | 2019-09-30 12:41 | GENERAL SURGERY PROGRESS NOTE ---
DATE: 09/30/2019 SUBJECTIVE: The patient seems to be doing okay. He has been hemodynamically stable. The area in his shoulder seems to be improving with the hematoma, it may be slightly decreased in size. Hematocrit has stabilized at 25. From a surgical point of view, I think he is doing okay. Once okay with the other teams, I think he can be discharged home. I think it is probably okay for him to be restarted on his Lovenox. cc: Moody James MD
[2019-09-30] MEDS: NORCO-10 PO PRN ×2 (12:53→23:17)
[2019-09-30] MEDS ORDERED: TYLENOL PO ONE (13:10)
[2019-09-30] MEDS ORDERED: NS 500 ML IV ONE (13:10)
[2019-09-30] MEDS ORDERED: BENADRYL PO ONE (13:10)
--- NOTE | 2019-09-30 13:25 | HEMO/ONC PROGRESS NOTE ---
DATE: 09/30/2019 SUBJECTIVE: The patient is sitting up in bed. He is feeling a little better every day. He continues to be sore at the site where his chest tube was. He complains of back pain due to being in the bed a lot. The patient is anxious to get out of the hospital. He is very upset to hear he is not being discharged due to low hemoglobin. He needs to be home by Thursday so that he can have help at home. He has no other pain. VITAL SIGNS: Temperature 98.2 degrees, pulse rate 75, respiratory rate 20, blood pressure 102/60, O2 saturation 93% on room air. He is in 3/10 pain. PHYSICAL EXAMINATION: General: The patient is in no acute distress but he is emotionally upset. Respiratory: He continues to have slightly diminished breath sounds on the right side. Left lung clear to auscultation. Cardiovascular: Normal S1, S2. Heart rate and rhythm is regular. Abdomen: Protuberant, soft, nontender. Bowel sounds are present. Extremities: Left lower extremity has more edema than the right lower extremity. No pain to palpation. No redness. No deformity. Neurological: Awake, alert, oriented x3. No focal motor deficits noted. LABORATORY: WBCs 8.39, hemoglobin 7.6, hematocrit 25.1, platelet count 318,000, ferritin level 523. RADIOLOGY: Chest x-ray shows continues to be loculated pleural effusion present on the right, including in the fissures. There has been no significant change since 09/28. ASSESSMENT PLAN: 1. Acute hypoxemic respiratory failure, resolved. 2. Bilateral lobe pneumonia, improving. Patient on antibiotics. Patient no longer on oxygen. 3. Status post VATS for loculated pleural effusion, now has a hematoma, otherwise recovering well. 4. Right lower deep vein thrombosis, no pain, currently not on any anticoagulation. 5. Paroxysmal atrial fibrillation, stable aware. 6. Folic acid deficiency. Aware. Patient being repleted. 7. Anemia. Aware. Transfuse as necessary. We will provide one unit PRBC's today. PLAN: The patient is continuing to heal well. Continue to allow him to get up and work with physical therapy as necessary. He needs to get out of the bed several times a day and eat his meals out of the bed. Continue management per the hospitalist ID and pulmonology. We will continue to monitor peripherally. Please call us if needed over the weekend. Dictated by ARINA Maurer for Sherif Okeefe MD cc: Sherif Okeefe MD [facility]
--- NOTE | 2019-09-30 16:43 | INFECTIOUS DISEASE PROGRESS NO ---
DATE: 09/30/2019 PRESENT ILLNESS: Mr. Chester is status post thoracotomy and decortication and drainage of the pleural fluid on the right. He has been treated for pneumonia. There is also a hematoma related to some popped sutures postoperatively. MEDICATIONS: He has been receiving Zyvox 600 mg by mouth every 12 hours and Cipro 500 mg by mouth every 12 hours. PHYSICAL EXAMINATION: Vital Signs: Temperature is 98.4 degrees, pulse rate 89, respiratory rate 16, blood pressure 105/56, O2 saturation is 95% on room air. General: This is a somewhat ill- appearing, middle-aged gentleman. He is lying in the bed currently in no acute distress. HEENT: Atraumatic, normocephalic. Oral mucous membranes are pink and moist. Conjunctivae are pale. Neck: Supple. Trachea is midline. Respiratory: Lung sounds are clear in the left side. Diminished on the right. There is no work of breathing noted. He does have a large dressing noted to the right upper back and axilla regions from the previous surgery and there is a small amount of bloody drainage on the dressing. Cardiovascular: Heart rate and rhythm are regular. Normal sinus rhythm on the monitor. Abdomen: Soft, obese and nontender. Bowel sounds are active. Integumentary: Skin is warm and dry. He does have pretibial edema bilaterally which is 1+. Neurologic: He is awake, alert, oriented, and able to ambulate with assistance. LABORATORY AND X-RAY: Today his white count is 8.39, hemoglobin 7.6, platelet count 318,000. Creatinine is 0.6, estimated GFR is greater than 60. Chest x-ray today is stable with a loculated pleural fluid on the right. ASSESSMENT AND PLAN: Mr. Chester is being treated status post thoracotomy and decortication with a subsequent hematoma. He also has pneumonia. Unfortunately his hemoglobin continues to go down. This may be due to the hematoma, however, we will go ahead and discontinue Zyvox which can contribute to anemia. Instead, we will give Augmentin 875 mg by mouth every 12 hours and continue Cipro as ordered. The patient is somewhat upset after hearing that his hemoglobin had gone down some. He was hoping to go home. I have spoken with Dr. Verde, who will be seeing the patient later. These plans have been discussed with and recommended by Dr. Carroll. COMORBIDITIES: For Mr. Chester include obesity and history of gastric bypass with iron-deficiency anemia. Dictated by ARINA Long for Mekhi Carroll MD cc: Mekhi Carroll MD MTDD
[2019-09-30] MEDS: AUGMENTIN PO SCH (20:33)
[2019-09-30] MEDS: LOVENOX SUBQ SCH (20:33)
[2019-09-30] MEDS: FERROUS SULFATE PO SCH (20:34)
--- NOTE | 2019-09-30 22:06 | PROGRESS NOTE ---
DATE: 09/30/2019 INTERVAL HISTORY: No acute events overnight. Mr. Chester was a little frustrated about being in the hospital and wanted to go home. He did have a drop in his hemoglobin and it looks like the Oncology team had ordered 1 unit of blood transfusion. SUBJECTIVE: Mr. Chester denies any complaints. Denies any chest pain, shortness of breath, cough. OBJECTIVE: VITAL SIGNS: Temperature 98.1 degrees, pulse 81, respiratory rate 13, blood pressure 107/72, saturating 94% on room air. Not in any acute distress. Oral cavity is moist. Air entry adequate in left hemithorax, slightly decreased with inspiratory crackles in the right inframammary and infra-axillary region. He also has a hematoma over his right flank region, which does not appear to be increasing in size, in fact, it is decreasing in the size. Abdomen: Soft, nontender. Mild right lower extremity edema. LABORATORY DATA: Suggestive of normocytic anemia, normal platelet count, normal electrolytes. MICROBIOLOGY: No data. ASSESSMENT: 1. Right-sided chest wall hematoma in the setting of previously inserted chest tube and probably rupture of chest wall suture with concurrent use of therapeutic anticoagulation. Now appears to be stable. 2. Acute blood loss anemia due to right-sided chest wall hematoma. He has been given 1 unit of packed red blood cells by Oncology team. I will follow up with CBC. 3. Acute deep vein thrombosis affecting right lower extremity. Since his hemoglobin is currently stabilizing, I will start him on enoxaparin subcutaneous therapeutic dose starting tonight. 4. Acute hypoxic respiratory failure due to predominantly right lung bilateral lower lobe pneumonia and right-side loculated pleural effusion, status post VATS on 09/19/2019, with chest tube placement, which was removed on September 25. Continue oral antibiotics with outpatient surgery and Pulmonology followup. 5. Atrial fibrillation with rapid ventricular response. Now resolved. 6. Septic shock and acute kidney injury have resolved. PLAN: Continue oral ciprofloxacin as per Infectious Disease recommendation. Start patient on iron and folic acid. The patient is also on Augmentin. If his hemoglobin remains stable in the next 24 hours, my plan would be to change his anticoagulation to Eliquis or Xarelto, and discharge him home. He is in agreement with the plan. cc: Victoriano Verde MD
[2019-10-01] MEDS: XOPENEX NEB INH SCH ×4 (03:19→15:12)
[2019-10-01 05:59] LABS: BASO# 0.05 X1000 (0.0-0.2); BASO% 0.7 % (0.0-0.8); EOS# 0.31 X1000 (0.0-0.7); EOS% 4.1 % (0.0-10.0); HEMATOCRIT 27.1 % (42.0-52.0); HEMOGLOBIN 8.3 g/dL (14.0-18.0); IMM GRAN# 0.11 X1000 (0.0-0.04); IMM GRAN% 1.5 % (0.0-0.5); LYMPH# 1.75 X1000 (1.2-3.4); LYMPH% 23.2 % (20.5-51.1); MCH 27.8 PG (27-31); MCHC 30.6 g/dL (33-37); MCV 90.6 FL (81-99); MONO# 0.68 X1000 (0.11-0.59); MPV 8.8 FL (7.4-10.4); NEUT# 4.65 X1000 (1.4-6.5); NEUT% 61.5 % (42.2-75.2); PLT 340 X1000 (130-400); RBC 2.99 XMIL (4.7-6.1); RDW 14.9 % (11.5-14.5); WBC 7.55 X1000 (4.8-10.8)
--- NOTE | 2019-10-01 07:08 | Diag Imaging Result Doc PS360 ---
EXAM: CHEST-PORTABLE HISTORY: respiratory failure TECHNIQUE: Single view COMPARISON: 09/30/2019 FINDINGS: There is a small right pleural effusion. No cardiomegaly. The vascular markings and atelectasis are less prominent. No left pleural effusion identified. IMPRESSION: Mild interval improvement Electronically signed by Weston Fabian 10/01/2019 7:06 AM
[2019-10-01] MEDS: CARDIZEM CD PO SCH (08:51)
[2019-10-01] MEDS: AUGMENTIN PO SCH ×2 (08:51→18:02)
[2019-10-01] MEDS: FERROUS SULFATE PO SCH (08:51)
[2019-10-01] MEDS: TUMS PO SCH ×3 (08:51→16:45)
[2019-10-01] MEDS: FOLIC ACID PO SCH (08:51)
[2019-10-01] MEDS: PROTONIX PO SCH (08:51)
[2019-10-01] MEDS: CIPRO PO SCH ×2 (08:51→18:02)
[2019-10-01] MEDS: MIRALAX PO SCH (08:51)
[2019-10-01] MEDS: LOVENOX SUBQ SCH ×2 (08:51→18:01)
[2019-10-01] MEDS: DULCOLAX PR SCH (08:53)
[2019-10-01] MEDS ORDERED: TYLENOL PO ONE (09:30)
[2019-10-01] MEDS ORDERED: BENADRYL PO ONE (09:30)
[2019-10-01] MEDS ORDERED: INJECTAFER 750 MG in NS 250 ML IV ONE (10:00)
--- NOTE | 2019-10-01 14:31 | PROGRESS NOTE ---
DATE: 10/01/2019 INTERVAL HISTORY: He received 1 unit of packed red blood cell and was started on therapeutic dose enoxaparin. He did not have any acute overnight events. His blood count has remained largely stable. The hematoma is not expanding. Mr. Chester denies new complaints. VITALS: Temperature 99.2 degrees, pulse 76, respiratory rate 19, blood pressure 150/80, his most oxygen saturation has been acceptable with 97% room air. Input and output positive 300 mL. PHYSICAL EXAMINATION: Not in acute distress. Air entry adequate on left hemithorax, mildly decreased in right infrascapular region with inspiratory crackles, right sided chest wall hematoma about 15 x 15 cm appears stable and not enlarging. It has been marked with a sketch pin.Abdomen: Soft, nontender. Bilateral lower extremity edema predominantly on the right ankle. He is alert, oriented x3. LABS: Suggest hemoglobin of 8.3, platelet of 340,000. Chest x-ray performed essentially suggest he has no or mild interval improvement in the right side pleural effusion. ASSESSMENT AND PLAN: 1. Right-sided chest wall hematoma in the setting of previously inserted chest tube and probably rupture of chest wall suture. 2. Acute blood loss anemia. 3. Acute deep vein thrombosis of right lower extremity. 4. Acute hypoxic respiratory failure due to loculated right side pleural effusion and pneumonia. 5. Atrial fibrillation with rapid ventricular response. 6. Septic shock. PLAN: Continue therapeutic enoxaparin. Follow up hemoglobin and hematocrit. If that is stable my plan is to discharge patient on oral Eliquis with outpatient Oncology, General Surgery and Pulmonology followup. He is in agreement with the plan. cc: Victoriano Verde MD MTDD
--- NOTE | 2019-10-01 14:48 | PROGRESS NOTE ---
DATE: 10/01/2019 SUBJECTIVE: Mr. Chester is status post right thoracotomy for decortication. It has been complicated by wound problem, possibly hematoma right chest. We are treating this conservatively. His chest x-ray is mostly clear. He has no work of breathing. His heart rate is 76, blood pressure 152/85, O2 saturation 86%. T-max is 99.2 degrees. His white blood cell count is normal. Hematocrit is 27%. He has had a recent bowel movement. He is on a regular diet. He is getting physical therapy. cc: Sindi Lowe MD
[2019-10-01 15:41] LABS: HEMATOCRIT 27.6 % (42.0-52.0); HEMOGLOBIN 8.5 g/dL (14.0-18.0)
[2019-10-01 16:03] VITALS: BP 122/67
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
== END 2019-10-01 18:27 | disposition home health service (06) | DRG 853 ==
LOC: SUPCPDRO → P.ED 00:58 → ICU 08:08 → SUATTDRO 08:08 → 2N 09-21 17:49
PROVIDERS: ATTEND Internal Medicine
PROC: GE.THRT (2019-09-19 09:49)
PROC: GE.THRS (2019-09-19 09:49)